=== PATIENT | female | born 1950 | race Caucasian/White ===

== ENCOUNTER 2020-06-02 10:34 | Outpatient (CLI) | payer MEDICARE, SELFPAY ==
[2020-06-02 10:53] LABS: Eosinophils Absolute Auto 0.2 K/mm3 (0-0.3); Eosinophils Percent Auto 3.4 % (0-4.4); Hematocrit 42.8 % (37.0-47.0); Immature Granulocyte Absolute 0.02 K/mm3 (0.00-0.031); Immature Granulocyte Percent A 0.3 % (0-0.5); Lymphocytes Percent Auto 25.8 % (18.3-44.2); Mean Corpuscular HGB Conc 32.7 g/dl (32-36); Mean Corpuscular Hemoglobin 29.9 pg (26-34); Mean Corpuscular Volume 91.3 fl (80-100); Mean Platelet Volume 10.5 fl (7.4-10.4); Monocytes Absolute Auto 0.5 K/mm3 (0.1-0.6); Monocytes Percent Auto 8.2 % (2.6-8.5); Neutrophils Absolute Auto 3.9 K/mm3 (1.3-6.7); Neutrophils Percent Auto 62.3 % (45.5-73.1); Platelet Count Result 199 k/mm3 (150-375); Red Blood Count 4.69 M/mm3 (4.2-5.4); Red Cell Distribution Width 13.4 % (11.5-14.5); White Blood Count 6.2 K/mm3 (4.5-10.0)
[2020-06-02 11:03] LABS: Alanine Aminotransferase 18 U/L (4-35); Albumin Level 3.9 g/dL (3.5-5.1); Alkaline Phosphatase 74 U/L (38-126); Anion Gap 4 mmol/L (8-16); Aspartate Amino Transferase 25 U/L (14-36); Bilirubin,Total 0.4 mg/dL (0.2-1.3); Blood Urea Nitrogen 21 mg/dL (7-17); Calcium 9.7 mg/dL (8.4-10.2); Carbon Dioxide 32 mmol/L (22-30); Chloride 104 mmol/L (98-107); Estimated Glomerular Filt Rate > 60; Glucose 115 mg/dL (65-105); Potassium 4.7 mmol/L (3.4-5.0); Sodium 140 mmol/L (137-145)
== END 2020-06-02 10:35 | disposition home or self-care (01) ==
LOC: ANHLAB 10:34
PROVIDERS: PCP Internal Medicine; Visit Provider Nurse Practitioner
DX: Z13.228 Encounter for screening for other metabolic disorders (principal); E55.9 Vitamin D deficiency, unspecified
CPT/HCPCS: 36415; 80053; 82306; 85025

== ENCOUNTER 2020-10-05 17:40 | Emergency (ER) | payer MEDICARE, SELFPAY ==
--- NOTE | ~2020-10-05 | XR_ITS ---
EXAMINATION: XR foot LT min 3V EXAM DATE: 10/05/2020 18:31 INDICATION: fall, pain and edema; pain lat Lt foot . Initial encounter. TECHNIQUE: Left foot dorsoplantar, lateral and oblique projections obtained and reviewed. There is n o prior study for comparison. FINDINGS: Left metatarsal bones unremarkable. Small calcaneal inferior spur. There are no acute fr actures or dislocations identified. There is no subcutaneous gas. The soft tissue is unremarkable. There are no radiopaque foreign bodies. There is mild 1st metatarsophalangeal joint primary osteoa rthritis. IMPRESSION: 1. XR foot LT min 3V exam without acute osseous findings. Reviewed, dictated and finalized at location A.
[2020-10-05 18:13] VITALS: BP 146/83; PULSE 99; RESP 18; TEMP 36.9; O2SAT 99
--- NOTE | 2020-10-05 18:52 | ED.GENADULT ---
HPI - General Adult General Chief complaint: Extremity Injury, Lower Stated complaint: left foot injury, fall Time Seen by Provider: 10/05/20 18:16 Source: patient History of Present Illness HPI narrative: Patient is a 70 y/o female complaining of left foot pain after a fall 3 days ago. She states that she was walking onto a porch and fell. She denies hitting her head or passing out. She describes her pain as sharp and rates it as 7/10. Weight bearing aggravates her pain and Tylenol helps. She is able to ambulate, although with some difficulty. Related Data Home Medications Medication Instructions Recorded Confirmed cetirizine 10 mg tablet 5 mg PO DAILY PRN 05/14/19 06/05/20 multivitamin 1 tablet PO DAILY 05/14/19 06/05/20 tramadol 50 mg tablet 50 - 100 mg PO Q6H PRN tablet 05/14/19 06/05/20 cholecalciferol (vitamin D3) 125 10,000 unit PO DAILY tablet 06/05/20 06/05/20 mcg (5,000 unit) tablet Allergies Allergy/AdvReac Type Severity Reaction Status Date / Time Penicillins Allergy Unknown red knot Verified 10/05/20 18:16 Review of Systems Constitutional: Constitutional: Denies chills, Denies fever(s), Denies headache(s) and Denies weakness Eyes: Eyes: Denies blurry vision ENT: Denies headache(s) and Denies neck pain Cardiovascular: Cardiovascular: Denies chest pain and Denies dyspnea Respiratory: Respiratory: Denies cough and Denies dyspnea Gastrointestinal: Gastrointestinal: Denies abdominal pain, Denies diarrhea, Denies nausea and Denies vomiting Genitourinary: Genitourinary: Denies hematuria and Denies dysuria Musculoskeletal: Musculoskeletal: Denies back pain, Denies neck pain and Reports other (left foot pain) Neurologic: Denies headache(s) and Denies weakness [facility] Past Medical History Medical History Anxiety Fibromyalgia Right leg DVT Seasonal allergies Torn rotator cuff Right Vertigo Surgical History Surgical History History of back surgery Cement put in back. 2018 History of cataract surgery History of partial hysterectomy History of tubal ligation Family History Family History Mother Family history of Alzheimer's disease Family history of malignant neoplasm of ovary Father Patient's father is Epilepsy Meningitis Other Family history of arthritis Family history of malignant neoplasm Social History Social History Smoking status: Former smoker Alcohol intake: current Exam Const: General: no acute distress and well developed Orientation/consciousness: oriented to person, oriented to place, oriented to time and patient oriented x3 HENMT: Head: normocephalic Ears: external ears normal General nose exam: Normal external nose present Eyes: General: appearance normal, both eyes and all related structures Conjunctivae: conjunctivae normal Neck: Neck: normal visual inspection and full ROM Chest: Chest palpation & inspection: normal inspection of the chest and no tenderness Skin: General skin exam: normal color and turgor normal Neuro: General: oriented to person, oriented to place, oriented to time and patient oriented x3 Cognition (Neuro): normal cognition Extrem: General: normal to inspection, full ROM and no pedal edema Left lower extremity: foot Details: tenderness Psych: Appearance: grossly normal Mental Status: mental status grossly normal Affect: normal affect Course Vital Signs Vital signs: Vital Signs Temperature 36.9 C 10/05/20 18:13 Pulse Rate 99 10/05/20 18:13 Respiratory Rate 18 10/05/20 18:13 Blood Pressure 146/83 H 10/05/20 18:13 Pulse Oximetry 99 10/05/20 18:13 Temperature 36.9 C 10/05/20 18:13 Pulse Rate 99 10/05/20 18:13 Respiratory Rate 18 10/05/20 18:13 Blood Pressu
[2020-10-05 19:55] VITALS: BP 138/79; PULSE 78; RESP 16; O2SAT 97
== END 2020-10-05 19:55 | disposition home or self-care (01) ==
PROVIDERS: Emergency Provider Emergency Medicine; PCP Internal Medicine
DX: S90.32XA Contusion of left foot, initial encounter (principal); F41.9 Anxiety disorder, unspecified; M79.7 Fibromyalgia; Z86.718 Personal history of other venous thrombosis and embolism; Z98.49 Cataract extraction status, unspecified eye; Z87.891 Personal history of nicotine dependence; W18.30XA Fall on same level, unspecified, initial encounter
CPT/HCPCS: 73630; 99283

== ENCOUNTER → 2021-07-17 00:08 | Outpatient (CLI) | payer MEDICARE, SELFPAY ==
[2021-07-17 16:46] LABS: SARS-CoV-2 RNA PCR Negative
== END ==
PROVIDERS: PCP Internal Medicine; Visit Provider Nurse Practitioner
DX: R05.9 Cough, unspecified (principal); Z20.822 Contact with and (suspected) exposure to COVID-19
CPT/HCPCS: C9803; U0003; U0005

== ENCOUNTER 2021-07-27 09:38 | Outpatient (CLI) | payer MEDICARE, SELFPAY ==
--- NOTE | ~2021-07-27 | XR_ITS ---
XR chest 2V 07/27/2021 09:57 Indication: Cough Procedure: 2 view chest Comparison: 03/01/2017 Findings: Large hiatal hernia. Heart size normal. No focal air space disease, pulmonary edema, pleura l effusion or suspected pneumothorax. There are vertebroplasty changes in the lower thoracic spine. N o acute osseous abnormality. Impression: 1: Large hiatal hernia. Reviewed, dictated and finalized at location A. XER Impression: 1: Large hiatal hernia.
== END 2021-07-27 09:39 ==
LOC: MICIMG 09:40
PROVIDERS: PCP Internal Medicine; Visit Provider Clinical Nurse Specialist
DX: R05.9 Cough, unspecified (principal); K44.9 Diaphragmatic hernia without obstruction or gangrene
CPT/HCPCS: 71046

== ENCOUNTER 2021-09-02 08:34 | Outpatient (CLI) | payer MEDICARE, SELFPAY ==
--- NOTE | ~2021-09-02 | CT_ITS ---
EXAMINATION: CT chest abdomen w con DATE: 09/02/2021 09:32 INDICATION: Diaphragmatic hernia without obstruction or gangrene TECHNIQUE: Computed tomography (CT) of the chest and abdomen was performed with 100 mL Omnipaque-350 intravenous contrast. Automated exposure control and iterative reconstruction technique were employed . The dose-length product was 675.88 mGy-cm. COMPARISON: Chest CT dated 03/06/2017 FINDINGS: Chest : Large sliding-type hiatal hernia which contains the entire stomach with organoaxial volvulus. There i s prominent edematous wall thickening in the distal esophagus likely related to reflux esophagitis. T here is prominent compressive atelectasis in the adjacent left and right lower lobes. Additional mild dependent atelectasis in the bilateral lower lobes. No pneumonia, pulmonary edema or pleural effusio n. Heart size is normal. No pericardial effusion. Thoracic aorta is normal in caliber with no dissect ion. No pathologically enlarged thoracic lymphadenopathy. Chronic T12 compression fracture with verte broplasty. Abdomen : Liver, gallbladder, spleen, pancreas and left adrenal gland are normal. No significant interval lambert e in a 2.2 cm right adrenal adenoma with characteristic low attenuation on the prior noncontrast CT. Kidneys enhance symmetrically. A couple nonenhancing left renal cysts the larger measuring 1.8 cm. Vi sualized portions of the bowels are normal with no obstruction. Abdominal aorta is normal in caliber. No pathologically enlarged abdominal lymphadenopathy. Mild lumbar spondylosis. 3 mm retrolisthesis L 5 with respect to both L4 and S1. IMPRESSION: 1. Large sliding-type hiatal hernia containing the entire stomach with organoaxial volvulus. 2. Wall thickening in the distal esophagus likely esophagitis related to reflux. Reviewed, dictated and finalized at location B. IMPRESSION: 1. Large sliding-type hiatal hernia containing the entire stomach with organoax ial volvulus. 2. Wall thickening in the distal esophagus likely esophagitis related to reflux .
[2021-09-02 09:17] LABS: Estimated Glomerular Filt Rate > 60
== END 2021-09-02 08:35 ==
PROVIDERS: PCP Internal Medicine; Visit Provider Surgery
DX: K44.9 Diaphragmatic hernia without obstruction or gangrene (principal); K21.9 Gastro-esophageal reflux disease without esophagitis
CPT/HCPCS: 71260; 74160; Q9967

== ENCOUNTER 2021-09-28 13:50 | Outpatient (CLI) | payer MEDICARE, SELFPAY ==
--- NOTE | ~2021-09-28 | XR_ITS ---
EXAMINATION: XR chest 2V DATE: 09/28/2021 15:01 INDICATION: Diaphragmatic hernia without obstruction TECHNIQUE: PA and lateral views of the chest are obtained. COMPARISON: 09/02/2021 FINDINGS: The lungs are free of acute opacities. There is no pleural effusion or pneumothorax. The he art size is normal. There is a large hiatal hernia. There is moderate thoracic spondylosis. Vertebrop lasty change is noted at T12. IMPRESSION: 1. Large hiatal hernia. Reviewed, dictated and finalized at location A. IMPRESSION: 1. Large hiatal hernia.
--- NOTE | 2021-09-28 14:33 | ECG_ITS ---
Measurements Intervals [place] Rate: 63 P: 69 AK: 169 QRS: 50 QRSD: 78 T: 30 QT: 389 QTc: 398 Interpretive Statements SINUS RHYTHM LOW QRS VOLTAGE IN PRECORDIAL LEADS BASELINE ARTIFACT- V4 BORDERLINE ECG Electronically Signed On 09-28-2021 15:33:21 CDT by Edgar Coreas D.O.
[2021-09-28 15:04] LABS: Eosinophils Absolute Auto 0.1 K/mm3 (0-0.3); Eosinophils Percent Auto 2.2 % (0-4.4); Hematocrit 41.2 % (37.0-47.0); Hemoglobin 13.8 g/dL (12.0-15.0); Immature Granulocyte Absolute 0.01 K/mm3 (0.00-0.031); Immature Granulocyte Percent A 0.2 % (0-0.5); Lymphocytes Absolute Auto 1.97 K/mm3 (0.9-3.2); Lymphocytes Percent Auto 47.6 % (18.3-44.2); Mean Corpuscular HGB Conc 33.5 g/dl (32-36); Mean Corpuscular Hemoglobin 30.7 pg (26-34); Mean Corpuscular Volume 91.6 fl (80-100); Mean Platelet Volume 10.8 fl (7.4-10.4); Monocytes Absolute Auto 0.4 K/mm3 (0.1-0.6); Monocytes Percent Auto 10.1 % (2.6-8.5); Neutrophils Absolute Auto 1.7 K/mm3 (1.3-6.7); Neutrophils Percent Auto 39.9 % (45.5-73.1); Platelet Count Result 209 k/mm3 (150-375); White Blood Count 4.1 K/mm3 (4.5-10.0)
[2021-09-28 15:14] LABS: Anion Gap 6 mmol/L (8-16); Blood Urea Nitrogen 17 mg/dL (7-17); Calcium 9.2 mg/dL (8.4-10.2); Carbon Dioxide 30 mmol/L (22-30); Chloride 103 mmol/L (98-107); Estimated Glomerular Filt Rate > 60; Glucose 96 mg/dL (65-110); Potassium 4.1 mmol/L (3.4-5.0); Sodium 139 mmol/L (137-145)
== END 2021-09-28 13:51 | disposition home or self-care (01) ==
LOC: ANHSURGERY 13:55
PROVIDERS: PCP Internal Medicine; Visit Provider Surgery
DX: K44.9 Diaphragmatic hernia without obstruction or gangrene (principal); R94.31 Abnormal electrocardiogram [ECG] [EKG]
CPT/HCPCS: 36415; 71046; 80048; 85025; 86850; 86900; 86901; 93005

== ENCOUNTER 2021-10-08 18:20 | Inpatient (IN) | payer MEDICARE, SELFPAY ==
[2021-09-28 14:06] VITALS: BP 123/80; PULSE 67; RESP 12; TEMP 36.9; O2SAT 95; BMI 27.6
--- NOTE | 2021-09-28 14:15 | PC.NURSE ---
Report to the Outpatient Waiting Room, entrance under the green pavilion located off [facility], at time __10:00AM on date __10/07/21 . OR Time: __12:00PM . - You and your visitor will be asked a series of questions to screen for COVID 19 for your protection. - Only one visitor is allowed at this time. - The patient visitor is requested to leave or wait in car when not with patient. - A mask is required within the hospital. Patients may have clear liquids (water, carbonated beverages, clear teas, apple juice) until 3 hours prior to surgery with a maximum of 20 ounces. - No food from midnight until time of surgery - Infants may have breast milk until 4 hours before surgery, formula 6 hours prior to surgery. - Children will be allowed to drink immediately following surgery. If applicable, please bring a bottle or sippy cup to assist with drinking. Juice, water, soda, and popsicles are readily available. For infants on formula, please bring formula the day of surgery. Pacifiers are allowed. Take the following medications with a SIP of water the morning of surgery: ____DULOXETINE Medications to discontinue per physician HOLD ALL VITAMINS/SUPPLEMENTS 3 DAYS PRE-OP Date to take last dose____10/03/21 Please no make-up, nail australian, hairspray, perfume, deodorant, or body powder the day of surgery. No jewelry (including any body piercings) or valuables the day of surgery, leave them at home. Please take a shower or bath the night before, or the morning of, surgery with an antibacterial soap. Wear comfortable, loose fitting clothing. Children are encouraged to wear pajamas. - Jewelry must be removed prior to entering the operating room. Rings and piercings that are not removed may be cut off. - The hospital will not accept responsibility for valuables. - Please leave all valuables, including medications, at home the day of surgery. If you are going home after surgery, a licensed tram driver must drive you home. - NO public transportation without another adult. - We recommend that an adult stay with you for 24 hours following discharge. - We also recommend that you do not drive, make important decision, drink alcoholic beverages, or take any drugs that were not prescribed by your health care provider for at least 24 hours after your discharge time. For Pediatric surgeries, we recommend two adults accompany the child home (only one inside the building at this time). Follow any additional instructions given to you from your surgeon. If you or anyone in your household have experienced Covid symptoms in the past week, please notify your surgeon or the nurse liaison at the phone number below for possible testing. Telephone instructions given to ___PATIENT and asked if any additional questions and then verbalized understanding. Patient advised to call surgeon office or pre surgery nurse liaison [phone] if any additional questions.
--- NOTE | 2021-10-05 15:16 | PM.IMHP ---
H&P: HPI History of Present Illness Date/Time: 10/05/21 15:16 Chief Complaint: Hiatal hernia Narrative: patient is a 71-year-old woman with a longstanding large hiatal hernia. Her entire stomach is within the mediastinum. She had a CT scan of the abdomen and chest September 02, 2021. This showed a large sliding type hiatal hernia containing the entire stomach with organoaxial volvulus. There was some esophageal thickening felt to be esophagitis due to reflux. Patient has significant obstructive symptoms very frequently after eating. She also experiences heartburn not responsive to oral medication. After thorough discussion in the office, she is taken to surgery now for laparoscopic repair of her large hiatal hernia. Review of Systems Constitutional: Constitutional: Denies chills and Denies fever(s) Cardiovascular: Cardiovascular: Denies chest pain, Denies diaphoresis, Denies dyspnea and Denies paroxysmal nocturnal dyspnea Respiratory: Respiratory: Denies chest congestion, Denies cough and Denies dyspnea Integumentary/Breasts: Skin/Breast: Denies lesions and Denies rash PMFSH Past Medical History Medical History Anxiety Fibromyalgia Hiatal hernia History of DVT (deep vein thrombosis) Right leg DVT Seasonal allergies Torn rotator cuff Right Vertigo Surgical History Surgical History History of back surgery Cement put in back. 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 Substance use: never Additional living arrangements comments: [facility]USB Spiritual care concerns: No Meds Home Medications and Allergies Home Medications Medication Instructions Recorded Confirmed Type cetirizine 10 mg tablet 5 mg PO QAM 05/14/19 09/28/21 History multivitamin 1 tablet PO DAILY 05/14/19 09/28/21 History ascorbic acid (vitamin C) 500 mg PO QAM 09/28/21 09/28/21 History cholecalciferol (vitamin D3) 125 mcg PO QAM 09/28/21 09/28/21 History duloxetine [Cymbalta] 60 mg PO QAM 09/28/21 09/28/21 History naproxen sodium [Aleve] 220 mg PO BID PRN 09/28/21 09/28/21 History Allergies Allergy/AdvReac Type Severity Reaction Status Date / Time Penicillins Allergy Unknown red knot Verified 09/28/21 14:01 at injection site Exam Const: General: comfortable, no acute distress, alert and awake HENMT: Head: normocephalic and atraumatic Mouth: Yes Normal oral and palatal mucosa present Eyes: Conjunctivae: conjunctivae normal Pupils: Equal, round and reactive pupils present EOM: EOMs intact bilaterally Neck: Neck: normal visual inspection, no lymphadenopathy and nontender Resp: Effort & Inspection: normal respiratory effort Auscultation: clear to auscultation bilaterally Cardio: Rate: regular rate Rhythm: regular rhythm Heart sounds: no gallops, no murmurs and no rubs GI: Inspection: non-distended GI Palp: Yes Soft to palpation, No Tenderness to palpation present (GI), No Hepatomegaly present and No Splenomegaly present Skin: Lesions: no lesions Rashes: no rashes Neuro: General: no focal motor deficits and CN's II-XI intact bilaterally Cranial nerves: Yes Equal, round and reactive pupils present, Yes B
[2021-10-07] VITALS (17 sets, daily range): BP systolic 98–124; BP diastolic 59–88; PULSE 68–94; RESP 10–18; TEMP 34.3–36.6; O2SAT 92–100
[2021-10-07] MEDS: LACTATED RINGERS 1,000 ML 30 ML IV CONT ×3 (10:00→17:01)
--- NOTE | 2021-10-07 10:33 | WPDANESEPPF ---
Anes - Initial Pre Proc Eval Procedure: Operation Date: 10/07/21 12:00 Proposed Procedures p Laparoscopic Repair Paraesophageal Hiatal Hernia with Rajeev Fundoplication - Maynor Ayala MD Date/Time: 10/07/21 10:33 Surgeon: Maynor Ayala MD Pre Op Diagnosis: GERD Patient Data Age: 71 Gender: F Height: 1.6 m Weight: 68.4 kg Last Vital Signs Temp 36.2 C L 10/07/21 09:57 Pulse 68 10/07/21 09:57 Resp 18 10/07/21 09:57 BP 120/88 10/07/21 09:57 Pulse Ox 97 10/07/21 09:57 Allergies Allergy/AdvReac Type Severity Reaction Status Date / Time Penicillins Allergy Unknown red knot Verified 10/07/21 09:49 at injection site Home Medications Medication Instructions Recorded Confirmed Type cetirizine 10 mg tablet 5 mg PO QAM 05/14/19 10/07/21 History multivitamin 1 tablet PO DAILY 05/14/19 10/07/21 History ascorbic acid (vitamin C) 500 mg PO QAM 09/28/21 10/07/21 History cholecalciferol (vitamin D3) 125 mcg PO QAM 09/28/21 10/07/21 History naproxen sodium [Aleve] 220 mg PO BID PRN 09/28/21 10/07/21 History duloxetine 60 mg capsule,delayed 60 mg PO QAM #90 cap 10/06/21 10/07/21 Rx release Patient hx anesthesia problems: none Family hx anesthesia problems: none Results Review: All pre-operative results and documents have been reviewed as part of the pre-operative evaluation. [facility] Past Medical History Medical History Anxiety Fibromyalgia Hiatal hernia History of DVT (deep vein thrombosis) Right leg DVT Seasonal allergies Torn rotator cuff Right Vertigo Surgical History Surgical History History of back surgery Cement put in back. 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 Substance use: never Living arrangements: with family Additional living arrangements comments: HUSB Spiritual care concerns: No Anes - Eval Final PreProcedure Day of Procedure 10/07/21 10:33 Patient weight: overweight Heart: regular rate and rhythm Lungs: clear to auscultation Airway: Mallampati scale class II Neurological: alert and oriented Last oral intake: >/= 8 hours ASA classification: III Emergent: no Anesthetic plan: proceed Anesthesia type and monitoring: general ETT and standard monitoring Results Review: All pre-operative results and documents have been reviewed as part of the pre-operative evaluation. Informed Consent: The patient's anesthetic plan and its attendant risks and benefits were discussed with the patient/family/POA. Questions were solicited and answers provided to the satisfaction of the patient/family/POA.
--- NOTE | 2021-10-07 11:52 | WPDHPUPDATE1 ---
History and Physical Update Update Date/Time: 10/07/21 11:52 History and Physical has been reviewed, including an updated exam of the patient. There are NO changes in the patient's condition. Risks, benefits, and alternatives have been discussed and questions answered. Patient agrees to proceed with procedure.
[2021-10-07] MEDS: ceFAZolin 2 GM/D5W 50 ML 2 GM/50 ML BAG IVPB (12:12)
[2021-10-07] MEDS: LIDO 1%/EPINEPHRINE 1:100,000 50 ML VIAL 30 ML INFILTRATE (13:46)
[2021-10-07] MEDS: ceFAZolin SODIUM 1 GM VIAL IV PUSH (16:05)
--- NOTE | 2021-10-07 16:20 | W.PM.PROC2 ---
Procedure Note - Detailed Date of Procedure 10/07/21 Pre-op Diagnosis Paraesophageal hiatal hernia with intrathoracic stomach, gastroesophageal reflux disease Post-op Diagnosis Same Procedure Performed Laparoscopic repair paraesophageal hiatal hernia with Rajeev fundoplication Surgeon Maynor Ayala MD Barbed Wire Machine Operator Sobia MEMBRENO, Alecia MEMBRENO Anesthesia General and Local (1% lidocaine with epinephrine) Indications Patient has a very large paraesophageal hiatal hernia as well as heartburn. She has obstructive symptoms from this. After preoperative evaluation and discussion, she is taken to surgery for laparoscopic repair with Rajeev fundoplication Findings Large diaphragmatic hiatal defect, intrathoracic stomach, intraoperative bleeding from short gastric vessel bleeding which he was eventually isolated and clipped. Intraoperative blood loss was 600 cc which is at least 500 cc more than usual. Description of Procedure Patient was taken to surgery and induced into general anesthesia. The abdomen was prepped and draped. The initial trocar placement was in the midline above the umbilicus. Local was infiltrated in this location. The varies needle was introduced into the abdominal cavity. Insufflation was carried out. After adequate insufflation, an [employer] optical 10 11 port was placed under direct visualization. Once this port and camera were in position, the Alhaji retractor was placed in the right upper abdomen. The industrial production manager was present in the room and provided technical advice as to placement of the Alhaji. Local was infiltrated and a small incision was made. An Dennis and retractor was passed through the skin opening and into the abdominal cavity under direct visualization. It was positioned such that the lateral segment of the left lobe of the liver was elevated. It was then attached to the side arm and provided elevation of the lateral segment of the left lobe of the liver as well as visualization of the hiatal hernia. We then placed a right upper abdominal 10 11 port as well as a left upper abdominal 10 11 port. Finally a 10 11 port was placed in the left lateral subcostal position. Patient was placed in Trendelenburg. We started by eviscerating as much of the stomach as was gently come out of the mediastinum into the stomach. The stomach was then held in place and we turned our attention to the hepatogastric ligament. Using the LigaSure for virtually all the dissection, we started by dividing the a paddle gastric ligament and then proceeding up to the right wolf. The right wolf was exposed. I then divided the hernia sac just inside the right wolf and started gently teasing the hernia sac out of the right side of the mediastinum and down towards the hiatus. Fortunately there was a lot of alveolar tissue and the sac came down fairly easily. It was quite a large hernia sac. We continued this dissection and divided more of the hernia sac from the right wolf and the upper junction of the 2 crura. The hernia sac was very large and was gently brought down out of the mediastinum. Eventually we were able to the see the esophagus in the mediastinum and care was taken to avoid injury to this. Once most of the hernia sac had been dissected down to the hiatus I then went about dividing areola tissue around the esophagus to mobilize the esophagus. Once all of this that could be done from the right side of the hiatus had been performed, we then elevated the greater curvature of the stomach and put traction on the greater omentum in this area. The LigaSure was then used to divide the greater omentum near the edge of the greater curvature in enter the lesser sac. I then proceeded with dissecting the greater omentum from the greater curvature proceeding up to the short gastrics and eventually freeing the omentum from the entire cardia of the stomach. All this dissection was done with the LigaSure. We then exposed the posterio
[2021-10-07] MEDS: fentaNYL CITRATE INJ (*CRX) 100 MCG/2 ML VIAL 25 MCG IV PUSH ×2 (17:09→17:15)
--- NOTE | 2021-10-07 18:28 | ADMGEN ---
This patient, Jayde Boateng, was admitted to Medical Room 254-01. Patient/family oriented to hospital policies and general routines including ID bracelet, bed and alarms, visiting hours, pain management, procedures, bathroom and other care routines, personal items, smoking policy, room service/diet, and visiting hours. Information on how to activate the Rapid Response Team has been discussed. Patient/Family are encouraged to report perceived risks to care and to ask questions if they do not understand what they are told or what they should do.
[2021-10-07 18:45] LABS: Glucose Point of Care 226 mg/dl (65-105)
[2021-10-07 19:32] LABS: Hemoglobin 10.5 g/dL (12.0-15.0); Mean Corpuscular HGB Conc 30.9 g/dl (32-36); Mean Corpuscular Hemoglobin 30.1 pg (26-34); Mean Corpuscular Volume 97.4 fl (80-100); Mean Platelet Volume 10.7 fl (7.4-10.4); Platelet Count Result 160 k/mm3 (150-375); Red Blood Count 3.49 M/mm3 (4.2-5.4); Red Cell Distribution Width 14.4 % (11.5-14.5); White Blood Count 11.4 K/mm3 (4.5-10.0)
[2021-10-07 19:43] LABS: Anion Gap 8 mmol/L (8-16); Blood Urea Nitrogen 17 mg/dL (7-17); Calcium 7.4 mg/dL (8.4-10.2); Carbon Dioxide 20 mmol/L (22-30); Chloride 108 mmol/L (98-107); Estimated CRCL calculation 57 ml/min; Estimated Glomerular Filt Rate > 60; Glucose 225 mg/dL (65-110); Potassium 3.8 mmol/L (3.4-5.0); Sodium 136 mmol/L (137-145)
[2021-10-07] MEDS: LACTATED RINGERS 1,000 ML 100 ML IV CONT (20:03)
--- NOTE | 2021-10-07 20:08 | PC.NURSE ---
On 10/07/21, the RN, Isabel Serna, provided care and completed [facility] documentation on this patient. I have reviewed the RN's documentation from 7am- 7pm and agree with the findings.
[2021-10-08] VITALS (9 sets, daily range): BP systolic 103–116; BP diastolic 59–69; PULSE 73–88; RESP 16–20; TEMP 36.3–37.1; O2SAT 92–96
[2021-10-08 05:31] LABS: Hematocrit 30.5 % (37.0-47.0); Hemoglobin 9.4 g/dL (12.0-15.0); Mean Corpuscular HGB Conc 30.8 g/dl (32-36); Mean Corpuscular Hemoglobin 29.7 pg (26-34); Mean Corpuscular Volume 96.5 fl (80-100); Mean Platelet Volume 10.7 fl (7.4-10.4); Platelet Count Result 152 k/mm3 (150-375); Red Blood Count 3.16 M/mm3 (4.2-5.4); Red Cell Distribution Width 14.2 % (11.5-14.5); White Blood Count 8.2 K/mm3 (4.5-10.0)
[2021-10-08] MEDS: ACETAMINOPHEN 500 MG TABLET PO (05:39)
[2021-10-08 05:54] LABS: Anion Gap 4 mmol/L (8-16); Blood Urea Nitrogen 15 mg/dL (7-17); Calcium 7.5 mg/dL (8.4-10.2); Carbon Dioxide 27 mmol/L (22-30); Chloride 106 mmol/L (98-107); Estimated CRCL calculation 51 ml/min; Estimated Glomerular Filt Rate > 60; Glucose 127 mg/dL (65-110); Potassium 4.7 mmol/L (3.4-5.0); Sodium 137 mmol/L (137-145)
[2021-10-08] MEDS: LORATADINE 5 MG TABLET PO (08:01)
[2021-10-08] MEDS: ENOXAPARIN 40 MG/0.4 ML SYRINGE SUB-Q (08:01)
[2021-10-08] MEDS: DULoxetine HCL 60 MG CAPSULE.DR PO (08:01)
--- NOTE | 2021-10-08 09:27 | WPDANESPN ---
Anes - Prog Note Post-Op Date/Time: 10/08/21 09:27 Cardiovascular status: normal Respiratory status: normal Airway patency: baseline Mental status: baseline Post-Op hydration status: normal Vital Signs: Last Vital Signs Temp 37.1 C 10/08/21 06:00 Pulse 80 10/08/21 06:00 Resp 16 10/08/21 06:00 BP 110/65 10/08/21 06:00 Pulse Ox 93 10/08/21 08:48 Pain Score (VAS): 0 I/O: Intake & Output 10/07/21 10/08/21 10/08/21 23:59 07:59 15:59 Intake Total 4800 500 510 Output Total 130 1150 Balance 4670 -650 510 Laboratory Tests 10/08/21 05:10 10/08/21 05:10 10/07/21 10/07/21 10/07/21 18:37 19:22 19:22 WBC 11.4 H RBC 3.49 L Hgb 10.5 L D Hct 34.0 L MCV 97.4 MCH 30.1 MCHC 30.9 L RDW 14.4 Plt Count 160 MPV 10.7 H Sodium 136 L Potassium 3.8 Chloride 108 H Carbon Dioxide 20 L Anion Gap 8 BUN 17 Creatinine 0.70 Estim Creat Clear Calc 57 Estimated GFR > 60 Glucose 225 H POC Capillary Glucose 226 H Calcium 7.4 L 10/08/21 10/08/21 05:10 05:10 WBC 8.2 RBC 3.16 L Hgb 9.4 L Hct 30.5 L MCV 96.5 MCH 29.7 MCHC 30.8 L RDW 14.2 Plt Count 152 MPV 10.7 H Sodium 137 Potassium 4.7 Chloride 106 Carbon Dioxide 27 Anion Gap 4 L BUN 15 Creatinine 0.80 Estim Creat Clear Calc 51 Estimated GFR > 60 Glucose 127 H POC Capillary Glucose Calcium 7.5 L Post-procedural complaints: none Patient Feedback: Patient satisfied with anesthetic care.
--- NOTE | 2021-10-08 12:07 | PM.PNGS ---
Progress Note: A&P Assessment and Plan (1) Paraesophageal hiatal hernia: Code(s): K44.9 - Diaphragmatic hernia without obstruction or gangrene Status: Chronic Assessment and Plan: patient doing well postop day 1. Repair paraesophageal hiatal hernia with Rajeev fundoplication. Tolerating clear liquids well. Will discontinue Brandon catheter and advanced to full liquids. Up walking with assistance. Recheck labs and exam again tomorrow. Reminded patient that dysphagia is common and will probably be worse tomorrow. (2) Acute blood loss anemia: Code(s): D62 - Acute posthemorrhagic anemia Status: Acute Assessment and Plan: Explained to patient and her about the larger than usual blood losses during surgery and the reason for that. Monitoring H&H postoperatively. No need for transfusion at this point. (3) GERD (gastroesophageal reflux disease): Qualifiers: Esophagitis presence: with esophagitis Esophagitis bleeding: without hemorrhage Qualified Code(s): K21.00 - Gastro-esophageal reflux disease with esophagitis, without bleeding Code(s): K21.9 - Gastro-esophageal reflux disease without esophagitis Status: Chronic Assessment and Plan: Was not on medication (4) History of DVT (deep vein thrombosis): Code(s): Z86.718 - Personal history of other venous thrombosis and embolism Status: Chronic Assessment and Plan: on chemoprophylaxis Subjective Subjective Date/Time Seen: 10/08/21 12:07 Post Op day: 1 Patient reports: no new complaints, pain is less, no flatus, no bowel movement and afebrile Exam Const: General: comfortable and no acute distress; No confusion Orientation/consciousness: patient oriented x3 and No confusion Resp: Effort & Inspection: normal respiratory effort Auscultation: clear to auscultation bilaterally GI: Inspection: non-distended and incision ( some bruising at each trocar site but dry without drainage and healing wel) GI Palp: Yes Soft to palpation and Yes Tenderness to palpation present (GI) Auscultation: normal bowel sounds Neuro: General: patient oriented x3, no focal motor deficits and No confusion Extrem: General: no calf tenderness and no edema Psych: Affect: normal affect Insight: Good insight present (Psych) Judgement: Good judgement present (Psych) Objective Data Vital Signs Vital Signs: Vital Signs - 24 hr 10/07/21 16:37 10/07/21 16:50 10/07/21 17:05 Temperature 36.2 C L Pulse Rate 94 90 80 Respiratory Rate 14 14 14 Blood Pressure 123/68 121/65 124/65 Pulse Oximetry 100 100 100 10/07/21 17:20 10/07/21 17:35 10/07/21 17:50 Temperature Pulse Rate 78 78 80 Respiratory Rate 10 L 12 12 Blood Pressure 98/59 L 103/59 L 113/62 Pulse Oximetry 99 92 97 10/07/21 18:30 10/07/21 18:35 10/07/21 19:21 Temperature 34.3 C L 35.4 C L 35.8 C L Pulse Rate 80 Respiratory Rate 12 Blood Pressure 124/68 Pulse Oximetry 95 10/07/21 19:30 10/07/21 19:40 10/07/21 19:45 Temperature 35.6 C L 36.2 C L Pulse Rate 80 Respiratory Rate Blood Pressure Pulse Oximetry 95 10/07/21 20:00 10/07/21 20:30 10/07/21 21:17 Temperature 36.3 C L 36.2 C L 36.6 C Pulse Rate 84 Respiratory Rate 18 Blood Pressure 112/72 Pulse Oximetry 97 10/07/21 21:39 10/08/21 00:38 10/08/21 02:00 Temperature 36.4 C 36.4 C Pulse Rate 84 84 Respiratory Rate 18 18 Blood Pressure 104/64 104/64 Pulse Oximetry 93 96 96 10/08/21 06:00 10/08/21 08:48 10/08/21 10:00 Temperature 37.1 C 36.6 C Pulse Rate 80 88 Respiratory Rate 16 16 Blood Pressure 110/65 106/65 Pulse Oximetry 94 93 96 Intake/Output Intake/Output: Intake & Output 10/05/21 10/06/21 10/07/21 10/08/21 23:59 23:59 23:59 23:59 Intake Total 4850 1010 Output Total 130 1150 Balance 4720 -140 Meds/Results Medications: Active Medications Generic Name Dose Route Start Last Admin Trade [employer]
[2021-10-08] MEDS: HYDROcodone/acetaminophen (*CRX) 5-325 MG TABLET 1 TAB PO (15:02)
[2021-10-09] VITALS: BP 124/81; PULSE 81; RESP 18; TEMP 36.2; O2SAT 94
[2021-10-09] MEDS: HYDROcodone/acetaminophen (*CRX) 10-325 MG TABLET 1 TAB PO (00:41)
[2021-10-09 04:00] VITALS: BP 131/71; PULSE 91; RESP 18; TEMP 36.2; O2SAT 93
[2021-10-09 06:49] LABS: Hematocrit 29.5 % (37.0-47.0); Hemoglobin 9.3 g/dL (12.0-15.0); Immature Platelet Fraction Pct 7.5 % (0.9-11.2); Mean Corpuscular HGB Conc 31.5 g/dl (32-36); Mean Corpuscular Hemoglobin 30.2 pg (26-34); Mean Corpuscular Volume 95.8 fl (80-100); Mean Platelet Volume 11.3 fl (7.4-10.4); Platelet Count Result 146 k/mm3 (150-375); Red Blood Count 3.08 M/mm3 (4.2-5.4); Red Cell Distribution Width 14.4 % (11.5-14.5); White Blood Count 6.9 K/mm3 (4.5-10.0)
[2021-10-09 07:03] LABS: Anion Gap 3 mmol/L (8-16); Blood Urea Nitrogen 10 mg/dL (7-17); Calcium 7.6 mg/dL (8.4-10.2); Carbon Dioxide 28 mmol/L (22-30); Chloride 104 mmol/L (98-107); Estimated CRCL calculation 57 ml/min; Estimated Glomerular Filt Rate > 60; Glucose 97 mg/dL (65-110); Potassium 3.9 mmol/L (3.4-5.0); Sodium 135 mmol/L (137-145)
[2021-10-09] MEDS: ENOXAPARIN 40 MG/0.4 ML SYRINGE SUB-Q (09:22)
[2021-10-09] MEDS: DULoxetine HCL 60 MG CAPSULE.DR PO (09:22)
[2021-10-09] MEDS: LORATADINE 5 MG TABLET PO (09:23)
[2021-10-09 09:48] VITALS: BP 113/59; PULSE 59; RESP 12; TEMP 36.6; O2SAT 93
--- NOTE | 2021-10-09 13:04 | PM.DS ---
DS: Admitting Diagnosis Discharge Date 10/09/2021 Admitting Diagnosis Paraesophageal hiatal hernia with intrathoracic stomach GERD with esophagitis Kyphoscoliosis History DVT DS: Discharge Diagnosis Discharge Diagnosis (1) Paraesophageal hiatal hernia: Code(s): K44.9 - Diaphragmatic hernia without obstruction or gangrene Status: Chronic (2) GERD (gastroesophageal reflux disease): Qualifiers: Esophagitis presence: with esophagitis Esophagitis bleeding: without hemorrhage Qualified Code(s): K21.00 - Gastro-esophageal reflux disease with esophagitis, without bleeding Code(s): K21.9 - Gastro-esophageal reflux disease without esophagitis Status: Chronic (3) Acute blood loss anemia: Code(s): D62 - Acute posthemorrhagic anemia Status: Acute (4) History of DVT (deep vein thrombosis): Code(s): Z86.718 - Personal history of other venous thrombosis and embolism Status: Chronic (5) Kyphoscoliosis: Code(s): M41.9 - Scoliosis, unspecified Status: Chronic DS: Summary Hospital Course Hospital Course: Patient was troubled with a very large hiatal hernia with obstructive symptoms and in intrathoracic stomach. She also had symptoms of heartburn. She was prepared for surgery and then taken to the operating room on 10/07/2021. She underwent repair of paraesophageal hiatal hernia with Rajeev fundoplication. It was a fairly long surgery and there was more blood loss than usual. There had been some bleeding from short gastric vessels in the left upper quadrant which were eventually controlled. Patient did not require transfusion and had no significant symptoms from postoperative anemia. She was tolerating a soft diet ambulating independently and comfortable on oral analgesics. She was able to be discharged on postop day 2. 10/09/2021 in good condition. Status at Discharge Functional status at discharge: independent ambulation Overall status at discharge: patient is progressing back to baseline Time Spent with Patient Time attestation: Total time spent providing and/or coordinating discharge services: Time spent: Less than 30 minutes Exam GI: Inspection: non-distended and incision (Dry and all healing well.) GI Palp: Yes Soft to palpation, Yes Tenderness to palpation present (GI) (Appropriate incisional tenderness), No Hernia present and No Palpable mass present Auscultation: normal bowel sounds DS: Data Data Completed and Pending Labs on day of discharge: Labs from last 24 hours 10/09/21 10/09/21 05:54 05:54 WBC 6.9 RBC 3.08 L Hgb 9.3 L Hct 29.5 L MCV 95.8 MCH 30.2 MCHC 31.5 L RDW 14.4 Plt Count 146 L MPV 11.3 H % Immature Plt Fraction 7.5 Sodium 135 L Potassium 3.9 Chloride 104 Carbon Dioxide 28 Anion Gap 3 L BUN 10 D Creatinine 0.70 Estim Creat Clear Calc 57 Estimated GFR > 60 Glucose 97 Calcium 7.6 L Discharge Plan Discharge Attending physician on discharge: Maynor Ayala Discharging Clinician: Maynor Ayala Anticipated Discharge Date/Time: 10/09/21 13:09 Patient Disposition: Home, Self-Care Activity: may shower and as tolerated Diet: low fiber Wound Care Instructions: incision open to air Discharge Instructions: Ambulate 3-4 x per day and as tolerated. No lifting over 15-20lbs. May bathe or shower. Stairs are OK. May drive a car in 3 days. Low-fiber or soft food diet Patient Instructions: Hiatal Hernia (DC), Laparoscopic Hiatal Hernia Repair (DC), Fundoplication in Adults (GEN) Follow-up/Referrals: Maynor Ayala MD [Physician] - 2 Weeks Discharge Medications: New hydrocodone-acetaminophen 5-325 mg tablet 1 - 2 tablet PO Q6H PRN (Reason: pain) Qty: 15 RF: 0 ibuprofen 600 mg tablet 600 mg PO Q6H PRN (Reason: pain) Qty: 14 RF: 0 Continued multivitamin Tablet 1 tablet PO DAILY RF: 0 cetirizine [Zyrtec] 10 mg
[2021-10-09 13:39] VITALS: O2SAT 92
[2021-10-09 14:10] VITALS: BP 124/66; PULSE 101; RESP 14; TEMP 36.4; O2SAT 93
== END 2021-10-09 16:00 | disposition home or self-care (01) | DRG 327 ==
LOC: ANHSURGERY 18:25 → ANH2MED 18:25
PROVIDERS: Surgery; Admitting Provider Surgery; PCP Internal Medicine; Visit Provider Surgery
PROC: 0DV44ZZ Restriction of Esophagogastric Junction, Percutaneous Endoscopic Approach (ICD-10-PCS; CPT 43281; principal; 2021-10-07 12:00)
DX: K44.9 Diaphragmatic hernia without obstruction or gangrene (principal); D62 Acute posthemorrhagic anemia; K91.61 Intraoperative hemorrhage and hematoma of a digestive system organ or structure complicating a digestive system procedure; Y83.8 Other surgical procedures as the cause of abnormal reaction of the patient, or of later complication, without mention of misadventure at the time of the procedure; K21.00 Gastro-esophageal reflux disease with esophagitis, without bleeding; M41.9 Scoliosis, unspecified; M79.7 Fibromyalgia; F41.9 Anxiety disorder, unspecified; Z86.718 Personal history of other venous thrombosis and embolism; Z79.899 Other long term (current) drug therapy; Z88.0 Allergy status to penicillin; Z87.891 Personal history of nicotine dependence
CPT/HCPCS: 36415; 80048; 82948; 85027; 85055; A9270; C1713; J0171; J0690; J1100; J1650; J2370; J2405; J2704; J2710; J3010; J7120

== ENCOUNTER 2021-10-12 14:09 | Outpatient (CLI) | payer MEDICARE, SELFPAY ==
[2021-10-12 14:40] LABS: Hematocrit 33.1 % (37.0-47.0); Hemoglobin 10.7 g/dL (12.0-15.0); Mean Corpuscular HGB Conc 32.3 g/dl (32-36); Mean Corpuscular Hemoglobin 30.7 pg (26-34); Mean Corpuscular Volume 95.1 fl (80-100); Mean Platelet Volume 10.8 fl (7.4-10.4); Platelet Count Result 239 k/mm3 (150-375); Red Blood Count 3.48 M/mm3 (4.2-5.4); Red Cell Distribution Width 14.5 % (11.5-14.5); White Blood Count 5.1 K/mm3 (4.5-10.0)
== END 2021-10-12 14:10 | disposition home or self-care (01) ==
LOC: ANHLAB 14:10
PROVIDERS: PCP Internal Medicine; Visit Provider Surgery
DX: D62 Acute posthemorrhagic anemia (principal)
CPT/HCPCS: 36415; 85027

== ENCOUNTER 2021-10-18 21:13 | Inpatient (IN) | payer MEDICARE, SELFPAY ==
--- NOTE | ~2021-10-18 | CT_ITS ---
EXAMINATION: CT abdomen pelvis wo con DATE: 10/19/2021 08:43 INDICATION: Nausea and vomiting. TECHNIQUE: Computed tomography (CT) of the abdomen and pelvis was performed without intravenous contr ast. Automated exposure control and iterative reconstruction technique were employed. The dose-length product was 443.09 mGy-cm. COMPARISON: CT chest and abdomen 09/02/2021 FINDINGS: The visualized portions of the lung bases demonstrate small pleural effusions, right worse than left. There is mild atelectasis bilaterally. The heart size is normal. No pericardial effusion. There are changes of fundoplication of the stomach. There is food in the distal esophagus. There is f luid around the distal esophagus, conforming to the area of the previously seen hernia sac. The liver , gallbladder, spleen, pancreas, and left adrenal gland are normal. There is a 2.7 cm mass in right a drenal gland measuring low-attenuation, consistent with an adenoma. The kidneys are normal. There are no dilated loops of bowel. The appendix is normal. There are no pathologically enlarged lymph nodes. There is trace pelvic ascites. There is fat stranding in the body wall, likely edema and postsurgica l inflammation. There is a chronic burst fracture of T12 with changes of vertebroplasty. There is mil d lumbar spondylosis. IMPRESSION: 1. Changes of recent fundoplication. Fluid around the distal esophagus conforming to the area of the previously seen hernia sac. 2. Retained food in the esophagus. 3. Small pleural effusions. Reviewed, dictated and finalized at location A. IMPRESSION: 1. Changes of recent fundoplication. Fluid around the distal esophagus conformi ng to the area of the previously seen hernia sac. 2. Retained food in the esophagus. 3. Small pleural effusions.
--- NOTE | ~2021-10-18 | XR_ITS ---
EXAMINATION: XR chest 2V DATE: 10/19/2021 00:46 INDICATION: Vomiting. TECHNIQUE: Frontal and lateral views of the chest were obtained. COMPARISON: Chest 2 views 09/28/2021, chest CT 09/02/2021 FINDINGS: There is mild atelectasis in the lower lung zones. There is a mass in the posterior mediast inum. There is a small right pleural effusion. No pneumothorax. The heart size is normal. There is mi ld chronic anterior wedging of T11 vertebral body. There is a chronic compression fracture of T12 wit h changes of vertebroplasty. IMPRESSION: 1. Mild atelectasis in the lower lung zones. 2. Mass in the posterior mediastinum, likely surgical changes from hiatal hernia repair. Consider an upper gastrointestinal series. Reviewed, dictated and finalized at location A. IMPRESSION: 1. Mild atelectasis in the lower lung zones. 2. Mass in the posterior mediastinum, likely surgical changes from hiatal herni a repair. Consider an upper gastrointestinal series.
--- NOTE | ~2021-10-18 | XR_ITS ---
EXAMINATION: XR UGI w esoph water soluble DATE: 10/19/2021 11:21 CDT INDICATION: Evaluate for esophageal narrowing. Recent surgical procedure of the esophagus. TECHNIQUE: Thick barium contrast with gas effervescent crystals were administered orally. Fluoroscop ic images of the esophagus were obtained in various projections. The hypopharynx was also examined. T hereafter, overhead images of the thoracic esophagrus were performed. Fluroscopy time 0.7 minutes. 17 fluoroscopic images. FINDINGS: There are changes of recent Manny fundoplication procedure. There is persistent narrowing in the distal esophagus near the surgical site. There is obstruction of flow of contrast into the sto mach. There is moderate residual debris in the distal and mid esophagus, consistent with obstruction. IMPRESSION: 1. Abnormal narrowing of the distal esophagus with retained debris and contrast in the mid and dista l esophagus, consistent with obstruction. Reviewed, dictated and finalized at location A. IMPRESSION: 1. Abnormal narrowing of the distal esophagus with retained debris and contras t in the mid and distal esophagus, consistent with obstruction.
[2021-10-18 21:16] VITALS: BP 128/82; PULSE 65; RESP 18; TEMP 36.6; O2SAT 99
[2021-10-18] MEDS: ONDANSETRON INJ 4 MG/2 ML VIAL IV PUSH (22:49)
[2021-10-18] MEDS: LACTATED RINGERS 1,000 ML 999 ML IV CONT (22:49)
--- NOTE | 2021-10-18 22:53 | ED.NAVMDI ---
HPI - Nausea/Vomiting/Diarrhea General Chief complaint: Nausea/Vomiting/Diarrhea Stated complaint: nausea/vomiting Time Seen by Provider: 10/18/21 22:20 Source: patient Mode of arrival: ambulatory Limitations: no limitations History of Present Illness HPI Narrative: Patient is a 71-year-old female complaining of I cannot keep anything down , states that anything she eats or drinks she would throw it up, started today. Patient also states that she has heartburn and every time she eats she feels like there is pressure in the substernal area. Patient states that she had hernia repair surgery 2 weeks ago, was doing well, able to tolerate a normal diet, until today when she cannot keep anything down. Patient denies any pain, shortness of breath, abdominal pain, diaphoresis, fever or chills. Related Data Home Medications Medication Instructions Recorded Confirmed cetirizine 10 mg tablet 5 mg PO QAM 05/14/19 10/07/21 multivitamin 1 tablet PO DAILY 05/14/19 10/07/21 ascorbic acid (vitamin C) 500 mg PO QAM 09/28/21 10/07/21 cholecalciferol (vitamin D3) 125 mcg PO QAM 09/28/21 10/07/21 naproxen sodium [Aleve] 220 mg PO BID PRN 09/28/21 10/07/21 Allergies Allergy/AdvReac Type Severity Reaction Status Date / Time Penicillins Allergy Unknown red knot Verified 10/18/21 21:21 at injection site Review of Systems Review of Systems: All systems reviewed & are unremarkable except as noted in HPI and below Constitutional: Constitutional: Denies body ache(s), Denies chills, Denies excessive sweating, Denies fatigue, Denies fever(s), Denies headache(s), Denies lethargy, Denies malaise, Denies weakness and Denies weight loss Eyes: Eyes: Denies blurry vision, Denies change in vision and Denies loss of vision ENT: Denies dizziness, Denies ear discharge, Denies headache(s), Denies lip swelling, Denies epistaxis, Denies nasal congestion, Denies neck pain, Denies throat swelling and Denies tongue swelling Cardiovascular: Cardiovascular: Denies chest pain, Denies chest pain at rest, Denies chest pain with activity, Denies diaphoresis, Denies rapid heart rate, Denies edema, Denies irregular heart rhythm, Denies lightheadedness, Denies palpitations, Denies dyspnea and Denies dyspnea on exertion Respiratory: Respiratory: Denies chest congestion, Denies cough, Denies hemoptysis, Denies dyspnea and Denies dyspnea on exertion Gastrointestinal: Gastrointestinal: Denies abdominal pain, Denies melena, Denies hematochezia, Denies diarrhea and Denies hematemesis Musculoskeletal: Musculoskeletal: Denies abnormal gait, Denies deformity, Denies joint swelling, Denies limited range of motion, Denies neck pain and Denies numbness Neurologic: Denies Abnormal speech present, Denies abnormal gait, Denies confusion, Denies dizziness, Denies headache(s), Denies focal weakness, Denies loss of vision, Denies numbness, Denies Other visual disturbances, Denies Sensory deficit (Neuro) and Denies weakness Psychiatric: Psychiatric: Denies confusion, Denies depression, Denies auditory hallucinations, Denies homicidal ideation and Denies suicidal ideation Endocrine: Endocrine: Denies cold intolerance, Denies excessive sweating, Denies fatigue, Denies heat intolerance and Denies palpitations Hematologic/Lymphatic: Hematologic/Lymphatic: Denies easy bleeding and Denies easy bruising Allergic/Immunologic: Allergic/Immunologic: Denies lip swelling, Denies throat swelling and Denies tongue swelling PMFSH Past Medical History Medical History Anxiety Fibromyalgia History of DVT (deep vein thrombosis) Right leg DVT Seasonal allergies Torn rotator cuff Right Vertigo Surgical History Surgical History History of back surgery Cement put in back. 2018 History of cataract surgery History of Rajeev fundoplication repair paraesophageal hiatal hernia with intr
[2021-10-18 23:02] LABS: Basophils Percent Auto 0.2 % (0.2-1.2); Eosinophils Absolute Auto 0.1 K/mm3 (0-0.3); Eosinophils Percent Auto 2.7 % (0-4.4); Hemoglobin 10.8 g/dL (12.0-15.0); Immature Granulocyte Absolute 0.01 K/mm3 (0.00-0.031); Immature Granulocyte Percent A 0.2 % (0-0.5); Lymphocytes Absolute Auto 1.73 K/mm3 (0.9-3.2); Mean Corpuscular HGB Conc 31.8 g/dl (32-36); Mean Corpuscular Hemoglobin 30.3 pg (26-34); Mean Corpuscular Volume 95.2 fl (80-100); Mean Platelet Volume 10.3 fl (7.4-10.4); Monocytes Absolute Auto 0.4 K/mm3 (0.1-0.6); Monocytes Percent Auto 9.1 % (2.6-8.5); Neutrophils Absolute Auto 2.5 K/mm3 (1.3-6.7); Neutrophils Percent Auto 51.8 % (45.5-73.1); Platelet Count Result 316 k/mm3 (150-375); Red Blood Count 3.57 M/mm3 (4.2-5.4); Red Cell Distribution Width 14.7 % (11.5-14.5); White Blood Count 4.8 K/mm3 (4.5-10.0)
--- NOTE | 2021-10-18 23:04 | ECG_ITS ---
Measurements Intervals [place] Rate: 57 P: 72 ND: 174 QRS: 41 QRSD: 85 T: 30 QT: 437 QTc: 427 Interpretive Statements SINUS BRADYCARDIA ATRIAL PREMATURE COMPLEX BASELINE ARTIFACT- I, III BORDERLINE ECG Electronically Signed On 10-19-2021 6:40:54 CDT by Edgar Coreas D.O.
[2021-10-18 23:05] LABS: Bacteria Urine Trace /hpf; Mucus Urine Rare /lpf; RBC Urine 0-2 /hpf (0-2); Squamous Epithelial Cell Urine Rare /hpf (Few); WBC Urine 0-3 /hpf
[2021-10-18 23:10] LABS: Appearance Urine Clear (Clear); Bilirubin Urine Negative (Negative); Blood Urine Negative (Negative); Color Urine Yellow (Yellow); Glucose Urine UA Negative (Negative); Ketones Urine Negative (Negative); Leukocyte Esterase Ur Negative LEU/UL (Negative); Nitrate Urine Negative (Negative); Protein Urine Negative (Negative); Specific Grav Ur 1.025 (1.001-1.035)
[2021-10-18 23:12] LABS: Alanine Aminotransferase 14 U/L (6-35); Albumin Level 3.5 g/dL (3.5-5.1); Alkaline Phosphatase 60 U/L (38-126); Anion Gap 3 mmol/L (8-16); Aspartate Amino Transferase 19 U/L (14-36); Bilirubin,Total 0.2 mg/dL (0.2-1.3); Blood Urea Nitrogen 13 mg/dL (7-17); Calcium 8.8 mg/dL (8.4-10.2); Carbon Dioxide 26 mmol/L (22-30); Chloride 106 mmol/L (98-107); Estimated CRCL calculation 57 ml/min; Estimated Glomerular Filt Rate > 60; Glucose 108 mg/dL (65-110); Lipase 52 U/L (23-300); Potassium 4.4 mmol/L (3.4-5.0); Sodium 135 mmol/L (137-145)
[2021-10-18 23:14] LABS: Add Urine Microscopic? YES
[2021-10-18 23:27] LABS: Troponin I < 0.012 ng/mL (0.000-0.034)
--- NOTE | 2021-10-19 00:36 | PM.IMHP ---
H&P: HPI History of Present Illness Date/Time: 10/19/21 00:36 Chief Complaint: Nausea and vomiting. Narrative: This is a 71-year-old female with past medical history significant for hiatal hernia, fibromyalgia, generalized anxiety disorder. Patient is status post 12 days had Rajeev fundoplication for hiatal hernia repair. Patient presents to the emergency room due to being unable to keep anything down having nausea and vomiting for the last 2-3 days or so states that she did have problems right after surgery. Patient denies any constipation, diarrhea, abdominal pain, no chills, no fevers, no rigors. Preliminary workup was significant for CT of abdomen and pelvis with food retention in the distal esophagus. Patient is been admitted for further evaluation management and treatment. Review of Systems Review of Systems: Patient is status post Rajeev fundoplication 12+ days comes in due to nausea vomiting unable to keep anything down for the last 2-3 days. Constitutional: Constitutional: Denies chills and Denies fever(s) Eyes: Eyes: Denies change in vision ENT: Reports dysphagia, Denies vertigo, Denies dizziness, Denies nasal congestion, Denies nasal discharge, Denies nasal obstruction and Denies odynophagia Cardiovascular: Cardiovascular: Denies syncope, Denies pedal edema, Denies irregular heart rhythm, Denies claudication, Denies lightheadedness, Denies radiating jaw, neck or arm pain, Denies palpitations and Denies dyspnea on exertion Respiratory: Respiratory: Denies cough, Denies excessive phlegm production, Denies pain on inspiration and Denies dyspnea Gastrointestinal: Gastrointestinal: Denies abdominal pain, Denies dyspepsia, Denies heartburn, Reports nausea and Reports vomiting Genitourinary: Genitourinary: Denies dysuria Musculoskeletal: Musculoskeletal: Denies arthralgias and Denies joint swelling Integumentary/Breasts: Skin/Breast: Denies rash Neurologic: Denies focal weakness and Denies Sensory deficit (Neuro) Psychiatric: Psychiatric: Reports no additional psychiatric complaints and Reports as per HPI Endocrine: Endocrine: Denies cold intolerance, Denies flushing, Denies heat intolerance, Denies polyphagia, Denies polydipsia and Denies palpitations Hematologic/Lymphatic: Hematologic/Lymphatic: Reports no additional hematologic/lymphatic complaints and Reports as per HPI Allergic/Immunologic: Allergic/Immunologic: Reports no additional allergic/immunologic complaints and Reports as per HPI [facility] Past Medical History Medical History (Updated 10/20/21 @ 11:25 by Linda Alas PA-C) Anxiety Fibromyalgia History of DVT (deep vein thrombosis) Right leg DVT Seasonal allergies Torn rotator cuff Right Vertigo Surgical History Surgical History (Updated 10/19/21 @ 09:18 by Maynor Ayala MD) History of back surgery Cement put in back. 2018 History of cataract surgery History of Rajeev fundoplication repair paraesophageal hiatal hernia with intrathoracic stomach and Rajeev fundoplication 10/07/2021 History of partial hysterectomy History of tubal ligation Family History Family History Mother Family history of Alzheimer's disease Family history of malignant neoplasm of ovary Father Patient's father is Epilepsy Meningitis Other Family history of arthritis Family history of malignant neoplasm Social History Social History Smoking status: Never smoker Tobacco type: cigarettes Second hand tobacco smoke exposure: No Smoking end date: 05/29/1966 Additional smoking assessment comments: 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 Substance use: never Additional living arrangements comments: [facility] Spiritual care concerns: No Meds Home Medications and Allergies Home Medications
--- NOTE | 2021-10-19 00:38 | PC.NURSE ---
Pt currently in Radiology.
[2021-10-19] MEDS: PANTOPRAZOLE SODIUM IV 40 MG VIAL IV PUSH (00:47)
[2021-10-19 01:58] VITALS: BP 140/86; PULSE 64; RESP 18; O2SAT 96
[2021-10-19 02:00] VITALS: BMI 27.3
[2021-10-19 02:02] VITALS: BP 149/97; PULSE 59; RESP 20; TEMP 36.1; O2SAT 97
[2021-10-19 02:03] VITALS: BMI 27.3
[2021-10-19] MEDS: LACTATED RINGERS 1,000 ML 125 ML IV CONT (02:16)
[2021-10-19 05:59] LABS: Troponin I < 0.012 ng/mL (0.000-0.034)
[2021-10-19 06:00] VITALS: BP 149/97; PULSE 68; RESP 18; TEMP 36.3; O2SAT 2
[2021-10-19 06:13] LABS: Troponin I < 0.012 ng/mL (0.000-0.034)
--- NOTE | 2021-10-19 09:05 | PM.CNGS ---
Assessment and Plan Assessment and plan (1) Nausea & vomiting: Qualifiers: Vomiting type: unspecified Qualified Code(s): R11.2 - Nausea with vomiting, unspecified Code(s): R11.2 - Nausea with vomiting, unspecified Status: Acute Assessment and Plan: This is most likely due to narrowing of the distal esophagus due to swelling associated from the fundoplication. It is not an uncommon complication although rarely results in this degree of nausea and vomiting. By my review of CT scan, patient has a fair amount of food material in the distal esophagus which is contributing to the nausea and vomiting. Will get water-soluble esophagram upper GI to evaluate passage of contrast into the stomach. I do not see that there is a complication such as recurrent hiatal hernia as the cause. Sometimes steroids are helpful in this situation and we will consider them after the upper GI. Patient will most likely be here at least 2 or 3 days. Will keep her NPO for now. (2) History of Rajeev fundoplication: Code(s): Z98.890 - Other specified postprocedural states Status: Acute Assessment and Plan: Repair paraesophageal hiatal hernia with intrathoracic stomach and Rajeev fundoplication 10/07/2021. Radiologist report of CT is pending but by my review the fundoplication is intact and the stomach is in the abdomen as expected. Please see above. (3) Acute blood loss anemia: Code(s): D62 - Acute posthemorrhagic anemia Status: Acute Assessment and Plan: Anemia is stable from 10/12. H&H on 10/12 was improved from her last H&H in the hospital on 10/09. No evidence of bleeding. May have some old blood in the mediastinum noted on imaging. Plan Please see above. Water-soluble esophagram and upper GI to be done this morning. Keep NPO for now with IV fluids. May require some steroids. Obstruction seems to be food substances. She did not report any problems swallowing saliva. Am hopeful this will resolve without further procedures. History of Present Illness Consult details Consult date: 10/19/21 Reason for consult: other ( Vomiting status post Rajeev fundoplication) Requesting physician: Garfield Escalera MD Narrative: the patient is a 71-year-old woman whom I know from recent surgery. She had a large paraesophageal hiatal hernia with intrathoracic stomach as well as GERD and esophagitis. She was having obstructive symptoms. She underwent repair of the paraesophageal hiatal hernia with Rajeev fundoplication on 10/07/2021, 12 days ago. During the surgery, she had more blood loss than usual due to bleeding from some short gastric vessels. This was controlled but estimated blood loss was 600 cc. She was anemic after surgery but did not require transfusion. She was eating and tolerating low-fiber diet well and was able to be discharged on 10/09/2021. Cbc was reach checked on 10/12 and showed improvement in her hemoglobin and hematocrit. Patient continued to do well but then yesterday, she became unable to keep any food down. She tells me she was eating everything but then with her next meal she began vomiting and subsequently was unable to keep any oral laid take down. She has not had problems with saliva. When asked about her diet, she reported only things that did seem appropriate i.e. low-fiber or liquids. She does tell me that this morning she feels better in that the sticking sensation in her lower chest is gone. She has had no fever or chills. Her evaluation in the emergency room showed a stable H&H and normal white blood cell count. Electrolytes were stable as well. She is seen now in consultation regarding vomiting status post repair paraesophageal hiatal hernia with Rajeev fundoplication. Review of Systems Review of Systems: All systems reviewed & are unremarkable except as noted in HPI and below ( HPI and those items noted below) Constitutional: Constitutional: Denies chill
--- NOTE | 2021-10-19 10:01 | PM.IMPN ---
Progress Note: A&P Assessment and Plan (1) Nausea & vomiting: Qualifiers: Vomiting type: unspecified Qualified Code(s): R11.2 - Nausea with vomiting, unspecified Code(s): R11.2 - Nausea with vomiting, unspecified Status: Acute Assessment and Plan: -resolving P.r.n. antiemetics (2) Epigastric abdominal pain: Code(s): R10.13 - Epigastric pain Status: Acute Assessment and Plan: CT of the abdomen and pelvis revealed changes to the fundoplication. Fluid around the distal esophagus confirming of the area previously seen hernia sac. Retained food in the esophagus Will obtain an upper GI-Dr. Ayala with general surgery is on for consult, appreciate assistance and recommendations (3) GERD (gastroesophageal reflux disease): Qualifiers: Esophagitis presence: with esophagitis Esophagitis bleeding: without hemorrhage Qualified Code(s): K21.00 - Gastro-esophageal reflux disease with esophagitis, without bleeding Code(s): K21.9 - Gastro-esophageal reflux disease without esophagitis Status: Chronic Assessment and Plan: Start Protonix (4) Dysphagia: Qualifiers: Dysphagia type: unspecified Qualified Code(s): R13.10 - Dysphagia, unspecified Code(s): R13.10 - Dysphagia, unspecified Status: Acute Assessment and Plan: Patient has had a history of dysphagia and had dilatation previously in the past. She currently has retained food in her esophagus were and upper GI will be performed for further evaluation. (5) Paraesophageal hiatal hernia: Code(s): K44.9 - Diaphragmatic hernia without obstruction or gangrene Status: Chronic Assessment and Plan: -resolving patient had surgical intervention performed approximately 2 weeks ago. (6) Fibromyalgia: Code(s): M79.7 - Fibromyalgia Status: Acute Assessment and Plan: Holding pain medication (7) Osteoporosis: Qualifiers: Osteoporosis type: unspecified Presence of current pathological fracture: without current pathological fracture Qualified Code(s): M81.0 - Age-related osteoporosis without current pathological fracture Code(s): M81.0 - Age-related osteoporosis without current pathological fracture Status: Acute Assessment and Plan: Holding medications as patient is NPO Subjective Date/time seen: 10/19/21 10:01 Interval history: Patient is alert and oriented this morning. She reports that she has decreased nausea and vomiting. She does feel as though something is sitting on her chest. Imaging was performed this morning and resulted retained food in the esophagus. General surgery is on for consult perform an upper GI on the patient this morning. Continue to monitor, no acute events reported by RN during the night. Review of Systems Review of Systems: All systems reviewed & are unremarkable except as noted in HPI and below Exam Narrative: General: No acute distress. Mental Status: Awake, alert and oriented to person, place, and time with clear speech. Skin: Skin in warm, dry and intact without rashes or lesions. Head: Normocephalic and atraumatic. Eyes: Conjunctivae are clear without exudates or hemorrhage. Sclera is non-icteric. EOM are intact, PERRLA. Ears: The external ear and canal are non-tender and without swelling or discharge. Nose: Nasal mucosa is pink and moist. Septum midline. Nares patent bilaterally. Throat: Oral mucosa pink and moist with good dentition. Tongue midline. Neck: The neck supple without adenopathy. Trachea midline. No JVD. Cardiac: S1 and S2 regular rate and rhythm. No murmurs, gallops, or rubs auscultated. Respiratory: Chest wall symmetric, nontender and without deformity or trauma. Respirations even and unlabored. Lung sounds are clear to auscultation in all lobes bilaterally without wheezes, rhonchi, or rales. Abdominal: Abdomen soft, round and non-tender to palpation. Bowel so
[2021-10-19] MEDS: IBUPROFEN IV 800 MG/200 ML 800 MG/200 ML BAG 400 MG IVPB (11:56)
[2021-10-19] MEDS: ENOXAPARIN 40 MG/0.4 ML SYRINGE SUB-Q (11:58)
[2021-10-19] MEDS: DULoxetine HCL 60 MG CAPSULE.DR PO (12:06)
[2021-10-19 13:13] VITALS: BP 137/67; PULSE 60; RESP 16; TEMP 36.6; O2SAT 93
[2021-10-19] MEDS: HYDROCORTISONE SODIUM SUCCINATE 100 MG/2 ML VIAL 150 MG IV PUSH ×2 (14:32→21:27)
[2021-10-19] MEDS: LACTATED RINGERS 1,000 ML 80 ML IV CONT (19:01)
[2021-10-19 21:39] VITALS: O2SAT 97
[2021-10-19 21:40] VITALS: BP 135/73; PULSE 58; RESP 17; TEMP 36.5; O2SAT 96
[2021-10-20 05:38] VITALS: BP 122/63; PULSE 63; RESP 17; TEMP 36.8; O2SAT 94
[2021-10-20] MEDS: HYDROCORTISONE SODIUM SUCCINATE 100 MG/2 ML VIAL 150 MG IV PUSH ×3 (05:38→21:14)
[2021-10-20 06:18] LABS: Hematocrit 34.2 % (37.0-47.0); Mean Corpuscular HGB Conc 32.2 g/dl (32-36); Mean Corpuscular Hemoglobin 30.6 pg (26-34); Mean Platelet Volume 10.7 fl (7.4-10.4); Platelet Count Result 300 k/mm3 (150-375); Red Cell Distribution Width 14.5 % (11.5-14.5); White Blood Count 4.6 K/mm3 (4.5-10.0)
[2021-10-20 06:25] LABS: Anion Gap 6 mmol/L (8-16); Blood Urea Nitrogen 18 mg/dL (7-17); Calcium 8.3 mg/dL (8.4-10.2); Carbon Dioxide 23 mmol/L (22-30); Chloride 109 mmol/L (98-107); Estimated CRCL calculation 67 ml/min; Estimated Glomerular Filt Rate > 60; Glucose 135 mg/dL (65-110); Potassium 3.9 mmol/L (3.4-5.0); Sodium 138 mmol/L (137-145)
[2021-10-20 08:00] VITALS: PULSE 63; RESP 17; O2SAT 97
[2021-10-20 08:21] VITALS: O2SAT 97
[2021-10-20] MEDS: PANTOPRAZOLE SODIUM IV 40 MG VIAL IV PUSH (08:52)
[2021-10-20] MEDS: DULoxetine HCL 60 MG CAPSULE.DR PO (08:52)
[2021-10-20] MEDS: LACTATED RINGERS 1,000 ML 80 ML IV CONT (08:52)
[2021-10-20] MEDS: ENOXAPARIN 40 MG/0.4 ML SYRINGE SUB-Q (08:52)
--- NOTE | 2021-10-20 11:19 | P.PNIM_ITS ---
Progress Note: A&P Assessment and Plan (1) Nausea & vomiting: Qualifiers: Vomiting type: unspecified Qualified Code(s): R11.2 - Nausea with vomiting, unspecified <Linda Alas PA-C - Last Filed: 11:31> Code(s): R11.2 - Nausea with vomiting, unspecified <CAYETANO ShenC - Last Filed: 10/20/21 11:31> Status: Resolved <Linda Alas PA-C - Last Filed: 10/20/21 11:31> Assessment and Plan: Patient presented with nausea and vomiting, inability to tolerate oral intake * Suspect secondary to narrowing of distal esophagus secondary to fundoplication * Upper GI esophagram revealed abnormal narrowing of the distal esophagus with retained debrided contrast of the mid and distal esophagus consistent with obstruction * Continue with NPO except ice chips * Advance diet as tolerated per General surgery. Appreciate consultation * Gentle IV fluids while NPO * Antiemetics available as needed * Continue IV steroids per General surgery <Linda Alas PA-C - Last Filed: 10/20/21 11:31> (2) History of Rajeev fundoplication: Code(s): Z98.890 - Other specified postprocedural states <Linda Alas PA-C - Last Filed: 10/20/21 11:31> Status: Acute <Linda Alas PA-C - Last Filed: 10/20/21 11:31> Assessment and Plan: Patient underwent Rajeev fundoplication on 10/07/2021 for repair of paraesophageal hiatal hernia with intrathoracic stomach * Tolerated procedure well * Per General surgery, fundoplication appears intact based on imaging <Linda Alas PA-C - Last Filed: 10/20/21 11:31> (3) Epigastric abdominal pain: Code(s): R10.13 - Epigastric pain <Linda Alas PA-C - Last Filed: 10/20/21 11:31> Status: Resolved <Linda Alas PA-C - Last Filed: 10/20/21 11:31> Assessment and Plan: Resolved. * Supportive care * Appreciate general surgery consultation <Linda Alas PA-C - Last Filed: 10/20/21 11:31> (4) GERD (gastroesophageal reflux disease): Qualifiers: Esophagitis bleeding: without hemorrhage Esophagitis presence: with esophagitis Qualified Code(s): K21.00 - Gastro-esophageal reflux disease with esophagitis, without bleeding <Lindaoswaldo Alas PA-C - Last Filed: 10/20/21 11:31> Code(s): K21.9 - Gastro-esophageal reflux disease without esophagitis <Lindaoswaldo Alas PA-C - Last Filed: 10/20/21 11:31> Status: Chronic <Lindaoswaldo Alas PA-C - Last Filed: 10/20/21 11:31> Assessment and Plan: No acute issues * Continue IV pantoprazole <Linda Duranjaylyn PA-C - Last Filed: 10/20/21 11:31> (5) Dysphagia: Qualifiers: Dysphagia type: unspecified Qualified Code(s): R13.10 - Dysphagia, unspecified <Lindaoswaldo Alas BUDDY-C - Last Filed: 10/20/21 11:31> Code(s): R13.10 - Dysphagia, unspecified <Lindaoswaldo Duranjaylyn PA-C - Last Filed: 10/20/21 11:31> Status: Resolved <Lindaoswaldo Alas PA-C - Last Filed: 10/20/21 11:31> Assessment and Plan: Likely secondary to distal esophageal narrowing * Monitor lee diet is advanced * Consider speech therapy evaluation based on palpation is tolerating diet <Linda JordanAisha Rogerjaylyn BUDDY-C - Last Filed: 10/20/21 11:31> (6) Anemia: Code(s): D64.9 - Anemia, unspecified <Lindaoswaldo Duranjaylyn PA-C - Last Filed: 10/20/21 11:31> Status: Acute <Lindaoswaldo Duranjaylyn PA-C - Last Filed: 10/20/21 11:31> Assessment and Plan: H&H is stable on review of prior labs * Continue to monit
--- NOTE | 2021-10-20 11:19 | PM.IMPN ---
Progress Note: A&P Assessment and Plan (1) Nausea & vomiting: Qualifiers: Vomiting type: unspecified Qualified Code(s): R11.2 - Nausea with vomiting, unspecified <Linda Alas PA-C - Last Filed: 10/20/21 11:31> Code(s): R11.2 - Nausea with vomiting, unspecified <CAYETANO ShenC - Last Filed: 10/20/21 11:31> Status: Resolved <CAYETANO ShenC - Last Filed: 10/20/21 11:31> Assessment and Plan: Patient presented with nausea and vomiting, inability to tolerate oral intake Suspect secondary to narrowing of distal esophagus secondary to fundoplication Upper GI esophagram revealed abnormal narrowing of the distal esophagus with retained debrided contrast of the mid and distal esophagus consistent with obstruction Continue with NPO except ice chips Advance diet as tolerated per General surgery. Appreciate consultation Gentle IV fluids while NPO Antiemetics available as needed Continue IV steroids per General surgery <Linda Alas PA-C - Last Filed: 10/20/21 11:31> (2) History of Rajeev fundoplication: Code(s): Z98.890 - Other specified postprocedural states <Linda Alas PA-C - Last Filed: 10/20/21 11:31> Status: Acute <Linda Alas PA-C - Last Filed: 10/20/21 11:31> Assessment and Plan: Patient underwent Rajeev fundoplication on 10/07/2021 for repair of paraesophageal hiatal hernia with intrathoracic stomach Tolerated procedure well Per General surgery, fundoplication appears intact based on imaging <Linda Alas PA-C - Last Filed: 10/20/21 11:31> (3) Epigastric abdominal pain: Code(s): R10.13 - Epigastric pain <Linda Alas PA-C - Last Filed: 10/20/21 11:31> Status: Resolved <Linda Alas PA-C - Last Filed: 10/20/21 11:31> Assessment and Plan: Resolved. Supportive care Appreciate general surgery consultation <Linda Alas PA-C - Last Filed: 10/20/21 11:31> (4) GERD (gastroesophageal reflux disease): Qualifiers: Esophagitis bleeding: without hemorrhage Esophagitis presence: with esophagitis Qualified Code(s): K21.00 - Gastro-esophageal reflux disease with esophagitis, without bleeding <Linda JAisha Alas, PA-C - Last Filed: 10/20/21 11:31> Code(s): K21.9 - Gastro-esophageal reflux disease without esophagitis <Linda J. Rogerac, PA-C - Last Filed: 10/20/21 11:31> Status: Chronic <Linda J. Stimjaylyn, PA-C - Last Filed: 10/20/21 11:31> Assessment and Plan: No acute issues Continue IV pantoprazole <Linda JAisha Alas, PA-C - Last Filed: 10/20/21 11:31> (5) Dysphagia: Qualifiers: Dysphagia type: unspecified Qualified Code(s): R13.10 - Dysphagia, unspecified <Linda J. Stimac, PA-C - Last Filed: 10/20/21 11:31> Code(s): R13.10 - Dysphagia, unspecified <Linda J. Stimjaylyn, PA-C - Last Filed: 10/20/21 11:31> Status: Resolved <Linda J. Bishop, PA-C - Last Filed: 10/20/21 11:31> Assessment and Plan: Likely secondary to distal esophageal narrowing Monitor lee diet is advanced Consider speech therapy evaluation based on palpation is tolerating diet <Lindaoswaldo Alas, PA-C - Last Filed: 10/20/21 11:31> (6) Anemia: Code(s): D64.9 - Anemia, unspecified <Linda JAisha Alas, PA-C - Last Filed: 10/20/21 11:31> Status: Acute <Linda JAisha Alas, PA-C - Last Filed: 10/20/21 11:31> Assessment and Plan: H&H is stable on review of prior labs Continue to monitor <Linda JAisha Alas PA-C - Last Filed: 10/20/21 11:31> Subjective Date/time seen: 10/20/21 11:19 <Linda JAisha Alas PA-C - Last Filed: 10/20/21 11:31> Interval history: Date of service: 10/20/2021 Jayde Chambersson is a 71-year-old female with a history of DVT, fibromyalgia, anxiety, hiatal hernia s/p Rajeev fundoplication on
--- NOTE | 2021-10-20 11:22 | PM.PNGS ---
Progress Note: A&P Assessment and Plan (1) Nausea & vomiting: Qualifiers: Vomiting type: unspecified Qualified Code(s): R11.2 - Nausea with vomiting, unspecified Code(s): R11.2 - Nausea with vomiting, unspecified Status: Acute (2) History of Rajeev fundoplication: Code(s): Z98.890 - Other specified postprocedural states Status: Acute (3) Acute blood loss anemia: Code(s): D62 - Acute posthemorrhagic anemia Status: Acute Assessment and Plan: Remains stable, hgb 11 this morning. Subjective Subjective Date/Time Seen: 10/20/21 11:22 Patient reports: no new complaints, feels better and no bowel movement Interval history: This is a 71 yo F who underwent a laparoscopic repair hiatal hernia with Rajeev fundoplication on 10/07/21 and was discharged on POD#2. She returned to the ER with nausea and vomiting on 10/18/21 and has been admitted. Chart reviewed. Patient now seen and examined. She is currently NPO except ice chips. She reports feeling better today. She denies any abdominal pain or nausea. She is walking around in her room when I first entered and is doing well with activity. Review of Systems Review of Systems: All systems reviewed & are unremarkable except as noted in HPI and below Exam Const: General: no acute distress and awake Orientation/consciousness: patient oriented x3 Resp: Effort & Inspection: normal respiratory effort Auscultation: clear to auscultation bilaterally Cardio: Rate: regular rate Rhythm: regular rhythm GI: Inspection: non-distended and incision (Abdominal incisions dry and healing well) GI Palp: Yes Soft to palpation, No Tenderness to palpation present (GI) and No Guarding due to palpation present (GI) Auscultation: Hypoactive bowel sounds present Neuro: General: moves all extremities and no focal motor deficits Extrem: General: no calf tenderness and no edema Psych: Insight: Good insight present (Psych) Judgement: Good judgement present (Psych) Objective Data Vital Signs Vital Signs: Vital Signs - 24 hr 10/19/21 13:13 10/19/21 20:00 10/19/21 21:40 Temperature 97.9 F 97.7 F Pulse Rate 60 58 L Respiratory Rate 16 17 Blood Pressure 137/67 135/73 Pulse Oximetry 93 96 Oxygen Delivery Room Air 10/20/21 05:38 10/19/21 21:39 10/20/21 08:21 Temperature 98.2 F Pulse Rate 63 Respiratory Rate 17 Blood Pressure 122/63 Pulse Oximetry 94 97 97 Oxygen Delivery Room Air Room Air 10/20/21 08:00 Temperature Pulse Rate 63 Respiratory Rate 17 Blood Pressure Pulse Oximetry 97 Oxygen Delivery Room Air Intake/Output Intake/Output: Intake & Output 10/17/21 10/18/21 10/19/21 10/20/21 23:59 23:59 23:59 23:59 Intake Total 2200 1000 Output Total 900 400 Balance 1300 600 Meds/Results Medications: Active Medications Generic Name Dose Route Start Last Admin Trade Name Freq PRN Reason Stop Dose Admin Acetaminophen 650 mg 10/19/21 08:15 Acetaminophen 650 Mg Suppository RECTAL Q6H PRN Mild Pain (1-3) or Fever Duloxetine HCl 60 mg 10/20/21 09:00 10/20/21 08:52 Duloxetine Hcl 60 Mg Capsule.Dr PO 60 mg QAM MARCEL Administration Enoxaparin Sodium 40 mg 10/20/21 09:00 10/20/21 08:52 Enoxaparin 40 Mg/0.4 Ml Syringe SUB-Q 40 mg DAILY MARCEL Administration Fentanyl Citrate 25 mcg 10/19/21 11:20 Fentanyl Citrate Inj (*Crx) 100 Mcg/2 Ml Vial IV PUSH Q2H PRN Pain Rated 7-10 Hydrocortisone Sodium Succinate 150 mg 10/19/21 14:00 10/20/21 05:38 Hydrocortisone Sodium Succinate 100 Mg/2 Ml Vial IV PUSH 150 mg Q8HR MARCEL Administration Lactated Ringer's 1,000 mls @ 80 mls/hr 10/19/21 00:40 10/20/21 08:52 Lr - Lactated Ringers Iv IV CONT 80 mls/hr .[id number] MARCEL Administration Ibuprofen 800 mg in 200 mls @ 400 mls/hr 10/19/21 11:20 10/19/21 12:26 Caldolor 800 Mg/200 Ml IVPB Infused Q6H PRN Infusion Pain Rated 4-6 Pantop
--- NOTE | 2021-10-20 12:12 | PM.PNGS ---
Progress Note: A&P Assessment and Plan (1) Nausea & vomiting: Qualifiers: Vomiting type: unspecified Qualified Code(s): R11.2 - Nausea with vomiting, unspecified Code(s): R11.2 - Nausea with vomiting, unspecified Status: Acute Assessment and Plan: Imaging shows distal esophagus blocked by food substances and esophagus narrowed at site of fundoplication. Explained this to the patient. This was my expectation on admission. She is on Solu-Medrol and will keep NPO except ice chips today. Continue IV fluids. Probably try clear liquids tomorrow. If no resolution, may need EGD. (2) History of Rajeev fundoplication: Code(s): Z98.890 - Other specified postprocedural states Status: Acute Assessment and Plan: Swelling of fundoplication typically causes esophageal narrowing which was explained to patient prior to surgery. (3) Anemia: Code(s): D64.9 - Anemia, unspecified Status: Acute Assessment and Plan: Stable Subjective Subjective Date/Time Seen: 10/20/21 12:12 Patient reports: feels better, vomiting and afebrile Interval history: Patient had small amount clear liquids yesterday and promptly had emesis. Review of Systems Review of Systems: All systems reviewed & are unremarkable except as noted in HPI and below (HPI) Cardiovascular: Cardiovascular: Denies chest pain and Denies dyspnea Respiratory: Respiratory: Denies cough and Denies dyspnea Gastrointestinal: Gastrointestinal: Reports as per HPI Neurologic: Denies confusion and Denies headache(s) Exam Const: General: comfortable and no acute distress; No confusion Orientation/consciousness: patient oriented x3 and No confusion Resp: Effort & Inspection: normal respiratory effort Auscultation: clear to auscultation bilaterally GI: GI Palp: Yes Soft to palpation, Yes Tenderness to palpation present (GI), No Guarding due to palpation present (GI) and No Rebound tenderness present Auscultation: normal bowel sounds Neuro: General: patient oriented x3, no focal motor deficits and No confusion Extrem: General: no calf tenderness and no edema Psych: Affect: normal affect Insight: Good insight present (Psych) Judgement: Good judgement present (Psych) Objective Data Vital Signs Vital Signs: Vital Signs - 24 hr 10/19/21 13:13 10/19/21 20:00 10/19/21 21:40 Temperature 36.6 C 36.5 C Pulse Rate 60 58 L Respiratory Rate 16 17 Blood Pressure 137/67 135/73 Pulse Oximetry 93 96 Oxygen Delivery Room Air 10/20/21 05:38 10/19/21 21:39 10/20/21 08:21 Temperature 36.8 C Pulse Rate 63 Respiratory Rate 17 Blood Pressure 122/63 Pulse Oximetry 94 97 97 Oxygen Delivery Room Air Room Air 10/20/21 08:00 Temperature Pulse Rate 63 Respiratory Rate 17 Blood Pressure Pulse Oximetry 97 Oxygen Delivery Room Air Intake/Output Intake/Output: Intake & Output 10/17/21 10/18/21 10/19/21 10/20/21 23:59 23:59 23:59 23:59 Intake Total 2200 1000 Output Total 900 400 Balance 1300 600 Meds/Results Medications: Active Medications Generic Name Dose Route Start Last Admin Trade Name Freq PRN Reason Stop Dose Admin Acetaminophen 650 mg 10/19/21 08:15 Acetaminophen 650 Mg Suppository RECTAL Q6H PRN Mild Pain (1-3) or Fever Duloxetine HCl 60 mg 10/20/21 09:00 10/20/21 08:52 Duloxetine Hcl 60 Mg Capsule.Dr PO 60 mg QAM MARCEL Administration Enoxaparin Sodium 40 mg 10/20/21 09:00 10/20/21 08:52 Enoxaparin 40 Mg/0.4 Ml Syringe SUB-Q 40 mg DAILY MARCEL Administration Fentanyl Citrate 25 mcg 10/19/21 11:20 Fentanyl Citrate Inj (*Crx) 100 Mcg/2 Ml Vial IV PUSH Q2H PRN Pain Rated 7-10 Hydrocortisone Sodium Succinate 150 mg 10/19/21 14:00 10/20/21 05:38 Hydrocortisone Sodium Succinate 100 Mg/2 Ml Vial IV PUSH 150 mg Q8HR MARCEL Administration Lactated Ringer's 1,000 mls @ 80 mls/hr 10/19/21 00:40 10/20/21 08:5
[2021-10-20 13:48] VITALS: BP 125/73; PULSE 68; RESP 16; TEMP 36.1; O2SAT 96
[2021-10-20 20:00] VITALS: PULSE 68; RESP 18; O2SAT 97
[2021-10-20 21:28] VITALS: BP 129/74; PULSE 68; RESP 18; TEMP 36.7; O2SAT 97
[2021-10-21] MEDS: LACTATED RINGERS 1,000 ML 80 ML IV CONT ×3 (03:00→20:46)
[2021-10-21] MEDS: IBUPROFEN IV 800 MG/200 ML 800 MG/200 ML BAG 400 MG IVPB (03:34)
[2021-10-21 05:22] VITALS: O2SAT 95
[2021-10-21 05:31] VITALS: BP 109/66; PULSE 56; RESP 18; TEMP 36.7; O2SAT 95
[2021-10-21] MEDS: HYDROCORTISONE SODIUM SUCCINATE 100 MG/2 ML VIAL 150 MG IV PUSH ×3 (05:37→20:46)
[2021-10-21 06:21] LABS: Hemoglobin 9.9 g/dL (12.0-15.0); Mean Corpuscular HGB Conc 31.9 g/dl (32-36); Mean Corpuscular Hemoglobin 30.3 pg (26-34); Mean Corpuscular Volume 94.8 fl (80-100); Mean Platelet Volume 10.9 fl (7.4-10.4); Platelet Count Result 260 k/mm3 (150-375); Red Blood Count 3.27 M/mm3 (4.2-5.4); Red Cell Distribution Width 14.8 % (11.5-14.5); White Blood Count 6.5 K/mm3 (4.5-10.0)
[2021-10-21 06:35] LABS: Anion Gap 5 mmol/L (8-16); Blood Urea Nitrogen 28 mg/dL (7-17); Carbon Dioxide 26 mmol/L (22-30); Chloride 106 mmol/L (98-107); Estimated CRCL calculation 58 ml/min; Estimated Glomerular Filt Rate > 60; Glucose 133 mg/dL (65-110); Potassium 3.8 mmol/L (3.4-5.0); Sodium 137 mmol/L (137-145)
[2021-10-21] MEDS: ENOXAPARIN 40 MG/0.4 ML SYRINGE SUB-Q (08:24)
[2021-10-21] MEDS: DULoxetine HCL 60 MG CAPSULE.DR PO (08:24)
[2021-10-21] MEDS: PANTOPRAZOLE SODIUM IV 40 MG VIAL IV PUSH (08:25)
--- NOTE | 2021-10-21 10:59 | P.PNIM_ITS ---
Progress Note: A&P Assessment and Plan (1) Nausea & vomiting: Qualifiers: Vomiting type: unspecified Qualified Code(s): R11.2 - Nausea with vomiting, unspecified <Linda Alas PA-C - Last Filed: 11:10> Code(s): R11.2 - Nausea with vomiting, unspecified <CAYETANO ShenC - Last Filed: 10/21/21 11:10> Status: Resolved <CAYETANO ShenC - Last Filed: 10/21/21 11:10> Assessment and Plan: Patient presented with nausea and vomiting, inability to tolerate oral intake * Suspect secondary to narrowing of distal esophagus secondary to fundoplication * Upper GI esophagram revealed abnormal narrowing of the distal esophagus with retained debrided contrast of the mid and distal esophagus consistent with obstruction * Appreciate general surgery consultation * Continue with NPO except ice chips. Per surgery, may consider advance to clear liquids today but will await further recommendations * Gentle IV fluids while NPO * Antiemetics available as needed * Continue IV steroids per General surgery <CAYETANO ShenC - Last Filed: 10/21/21 11:10> (2) History of Rajeev fundoplication: Code(s): Z98.890 - Other specified postprocedural states <Linda Alas PA-C - Last Filed: 10/21/21 11:10> Status: Acute <CAYETANO ShenC - Last Filed: 10/21/21 11:10> Assessment and Plan: Patient underwent Rajeev fundoplication on 10/07/2021 for repair of paraesophageal hiatal hernia with intrathoracic stomach * Tolerated procedure well * Per General surgery, fundoplication appears intact based on imaging <CAYETANO ShenC - Last Filed: 10/21/21 11:10> (3) Epigastric abdominal pain: Code(s): R10.13 - Epigastric pain <CAYETANO ShenC - Last Filed: 10/21/21 11:10> Status: Resolved <CAYETANO ShenC - Last Filed: 10/21/21 11:10> Assessment and Plan: Resolved. * Supportive care * Appreciate general surgery consultation <Linda Alas BUDDY-C - Last Filed: 10/21/21 11:10> (4) GERD (gastroesophageal reflux disease): Qualifiers: Esophagitis bleeding: without hemorrhage Esophagitis presence: with esophagitis Qualified Code(s): K21.00 - Gastro-esophageal reflux disease with esophagitis, without bleeding <Linda Alas BUDDY-C - Last Filed: 10/21/21 11:10> Code(s): K21.9 - Gastro-esophageal reflux disease without esophagitis <Linda Alas PA-C - Last Filed: 10/21/21 11:10> Status: Chronic <Linda Alas BUDDY-C - Last Filed: 10/21/21 11:10> Assessment and Plan: No acute issues * Continue IV pantoprazole <Linda Alas BUDDY-C - Last Filed: 10/21/21 11:10> (5) Dysphagia: Qualifiers: Dysphagia type: unspecified Qualified Code(s): R13.10 - Dys phagia, unspecified <Linda Alas PA-C - Last Filed: 10/21/21 11:10> Code(s): R13.10 - Dysphagia, unspecified <Linda Alas PA-C - Last Filed: 10/21/21 11:10> Status: Resolved <Linda Alas PA-C - Last Filed: 10/21/21 11:10> Assessment and Plan: Likely secondary to distal esophageal narrowing * Monitor lee diet is advanced * Consider speech therapy evaluation based on how patient is tolerating diet <Linda JordanAisha Rogerjaylyn BUDDY-C - Last Filed: 10/21/21 11:10> (6) Anemia: Code(s): D64.9 - Anemia, unspecified <Linda Duranjaylyn PA-C - Last Filed: 10/21/21 11:10> Status: Acute <Lindaoswaldo Alas PA-C - Last Filed: 10/21/21 11:10> Assessment and Plan:
--- NOTE | 2021-10-21 10:59 | PM.IMPN ---
Progress Note: A&P Assessment and Plan (1) Nausea & vomiting: Qualifiers: Vomiting type: unspecified Qualified Code(s): R11.2 - Nausea with vomiting, unspecified <Linda Alas PA-C - Last Filed: 10/21/21 11:10> Code(s): R11.2 - Nausea with vomiting, unspecified <CAYETANO ShenC - Last Filed: 10/21/21 11:10> Status: Resolved <CAYETANO ShenC - Last Filed: 10/21/21 11:10> Assessment and Plan: Patient presented with nausea and vomiting, inability to tolerate oral intake Suspect secondary to narrowing of distal esophagus secondary to fundoplication Upper GI esophagram revealed abnormal narrowing of the distal esophagus with retained debrided contrast of the mid and distal esophagus consistent with obstruction Appreciate general surgery consultation Continue with NPO except ice chips. Per surgery, may consider advance to clear liquids today but will await further recommendations Gentle IV fluids while NPO Antiemetics available as needed Continue IV steroids per General surgery <CAYETANO ShenC - Last Filed: 10/21/21 11:10> (2) History of Rajeev fundoplication: Code(s): Z98.890 - Other specified postprocedural states <CAYETANO ShenC - Last Filed: 10/21/21 11:10> Status: Acute <CAYETANO ShenC - Last Filed: 10/21/21 11:10> Assessment and Plan: Patient underwent Rajeev fundoplication on 10/07/2021 for repair of paraesophageal hiatal hernia with intrathoracic stomach Tolerated procedure well Per General surgery, fundoplication appears intact based on imaging <CAYETANO ShenC - Last Filed: 10/21/21 11:10> (3) Epigastric abdominal pain: Code(s): R10.13 - Epigastric pain <CAYETANO ShenC - Last Filed: 10/21/21 11:10> Status: Resolved <CAYETANO ShenC - Last Filed: 10/21/21 11:10> Assessment and Plan: Resolved. Supportive care Appreciate general surgery consultation <Linda Alas PA-C - Last Filed: 10/21/21 11:10> (4) GERD (gastroesophageal reflux disease): Qualifiers: Esophagitis bleeding: without hemorrhage Esophagitis presence: with esophagitis Qualified Code(s): K21.00 - Gastro-esophageal reflux disease with esophagitis, without bleeding <Linda JAisha Duranjaylyn, PA-C - Last Filed: 10/21/21 11:10> Code(s): K21.9 - Gastro-esophageal reflux disease without esophagitis <Linda J. Rogerac, PA-C - Last Filed: 10/21/21 11:10> Status: Chronic <Linda J. Rogerac, PA-C - Last Filed: 10/21/21 11:10> Assessment and Plan: No acute issues Continue IV pantoprazole <Linda J. Rogerjaylyn, PA-C - Last Filed: 10/21/21 11:10> (5) Dysphagia: Qualifiers: Dysphagia type: unspecified Qualified Code(s): R13.10 - Dysphagia, unspecified <Linda J. Rogerac, PA-C - Last Filed: 10/21/21 11:10> Code(s): R13.10 - Dysphagia, unspecified <Linda J. Stimac, PA-C - Last Filed: 10/21/21 11:10> Status: Resolved <Linda J. Rogerjaylyn, PA-C - Last Filed: 10/21/21 11:10> Assessment and Plan: Likely secondary to distal esophageal narrowing Monitor lee diet is advanced Consider speech therapy evaluation based on how patient is tolerating diet <Linda JAisha Rogerjaylyn, PA-C - Last Filed: 10/21/21 11:10> (6) Anemia: Code(s): D64.9 - Anemia, unspecified <Linda J. Rogerac, PA-C - Last Filed: 10/21/21 11:10> Status: Acute <Linda J. Rogerjaylyn, PA-C - Last Filed: 10/21/21 11:10> Assessment and Plan: H&H is stable on review of prior labs Continue to monitor <Linda J. Rogerjaylyn, PA-C - Last Filed: 10/21/21 11:10> Subjective Date/time seen: 05/26/22 10:59 <Linda Alas PA-C - Last Filed: 10/21/21 11:10> Interval history: Date of service: 10/21/2021 Jayde Boateng is a 71-year-old female with a history of DVT, fibromy
--- NOTE | 2021-10-21 12:04 | PM.PNGS ---
Progress Note: A&P Assessment and Plan (1) Nausea & vomiting: Qualifiers: Vomiting type: unspecified Qualified Code(s): R11.2 - Nausea with vomiting, unspecified Code(s): R11.2 - Nausea with vomiting, unspecified Status: Acute Assessment and Plan: Continue IV Solu-medrol and IV fluids. Will start a clear liquid diet today and see how she does. If she vomits again, then we will need to make her NPO and likely consult GI for evaluation. Encouraged walking the halls. (2) History of Rajeev fundoplication: Code(s): Z98.890 - Other specified postprocedural states Status: Acute (3) Anemia: Code(s): D64.9 - Anemia, unspecified Status: Acute Plan I have discussed the patient's case and plan of care with Dr. Ayala. Subjective Subjective Date/Time Seen: 10/21/21 12:04 Patient reports: no new complaints and feels better Interval history: Patient seen and examined. She reports having an episode of left sided chest pain around 3:00 am this morning that was sharp and lasted about 10 minutes. She had taken Ibuprofen IV and the pain was alleviated completely. She denies any shortness of breath or further chest pain since that episode. No nausea or vomiting. No other complaints at this time. Review of Systems Review of Systems: All systems reviewed & are unremarkable except as noted in HPI and below Cardiovascular: Cardiovascular: Reports no additional cardiovascular complaints, Denies chest pain with activity, Denies rapid heart rate, Denies leg edema and Denies dyspnea Gastrointestinal: Gastrointestinal: Reports as per HPI and Reports no additional gastrointestinal complaints Exam Const: General: comfortable, no acute distress and awake Orientation/consciousness: patient oriented x3 Resp: Effort & Inspection: normal respiratory effort Auscultation: clear to auscultation bilaterally Cardio: Rate: regular rate Rhythm: regular rhythm GI: Inspection: non-distended and incision (Incisions healing well) GI Palp: Yes Soft to palpation, No Tenderness to palpation present (GI) and No Guarding due to palpation present (GI) Auscultation: normal bowel sounds Neuro: General: moves all extremities and no focal motor deficits Extrem: General: no calf tenderness and no edema Psych: Insight: Good insight present (Psych) Judgement: Good judgement present (Psych) Objective Data Vital Signs Vital Signs: Vital Signs - 24 hr 10/20/21 13:48 10/20/21 21:28 10/20/21 20:00 Temperature 96.9 F L 98.1 F Pulse Rate 68 68 68 Respiratory Rate 16 18 18 Blood Pressure 125/73 129/74 Pulse Oximetry 96 97 97 Oxygen Delivery Room Air 10/21/21 05:22 10/21/21 05:31 10/21/21 08:25 Temperature 98.0 F Pulse Rate 56 L Respiratory Rate 18 Blood Pressure 109/66 Pulse Oximetry 95 95 Oxygen Delivery Room Air Room Air Intake/Output Intake/Output: Intake & Output 10/18/21 10/19/21 10/20/21 10/21/21 23:59 23:59 23:59 23:59 Intake Total 2200 2000 20 Output Total 900 900 500 Balance 1300 1100 -480 Meds/Results Medications: Active Medications Generic Name Dose Route Start Last Admin Trade Name Freq PRN Reason Stop Dose Admin Acetaminophen 650 mg 10/19/21 08:15 Acetaminophen 650 Mg Suppository RECTAL Q6H PRN Mild Pain (1-3) or Fever Duloxetine HCl 60 mg 10/20/21 09:00 10/21/21 08:24 Duloxetine Hcl 60 Mg Capsule.Dr PO 60 mg QAM MARCEL Administration Enoxaparin Sodium 40 mg 10/20/21 09:00 10/21/21 08:24 Enoxaparin 40 Mg/0.4 Ml Syringe SUB-Q 40 mg DAILY MARCEL Administration Fentanyl Citrate 25 mcg 10/19/21 11:20 Fentanyl Citrate Inj (*Crx) 100 Mcg/2 Ml Vial IV PUSH Q2H PRN Pain Rated 7-10 Hydrocortisone Sodium Succinate 150 mg 10/19/21 14:00 10/21/21 05:37 Hydrocortisone Sodium Succinate 100 Mg/2 Ml Vial IV PUSH 150 mg Q8HR MARCEL Administration Lactated Ringer's 1,000 mls @ 80 mls/hr 10/19/21 00:40
[2021-10-21 14:00] VITALS: BP 139/77; PULSE 51; RESP 18; TEMP 36.8; O2SAT 99
[2021-10-21 14:33] VITALS: O2SAT 95
[2021-10-21 21:28] VITALS: BP 125/73; PULSE 57; RESP 16; TEMP 37.2; O2SAT 96
--- NOTE | 2021-10-21 21:43 | PC.NURSE ---
pt up and walking halls as recommended. Pt states her phone tracked 0.5 miles walked [place]
[2021-10-22] MEDS: HYDROCORTISONE SODIUM SUCCINATE 100 MG/2 ML VIAL 150 MG IV PUSH (05:42)
[2021-10-22 05:45] VITALS: BP 121/66; PULSE 55; RESP 16; TEMP 36.3; O2SAT 95
[2021-10-22 07:04] LABS: Hemoglobin 11.1 g/dL (12.0-15.0); Mean Corpuscular HGB Conc 31.7 g/dl (32-36); Mean Corpuscular Hemoglobin 30.2 pg (26-34); Mean Corpuscular Volume 95.1 fl (80-100); Mean Platelet Volume 10.9 fl (7.4-10.4); Platelet Count Result 270 k/mm3 (150-375); Red Blood Count 3.68 M/mm3 (4.2-5.4); Red Cell Distribution Width 14.9 % (11.5-14.5); White Blood Count 5.5 K/mm3 (4.5-10.0)
[2021-10-22 07:34] LABS: Anion Gap 6 mmol/L (8-16); Blood Urea Nitrogen 24 mg/dL (7-17); Calcium 8.1 mg/dL (8.4-10.2); Carbon Dioxide 24 mmol/L (22-30); Chloride 106 mmol/L (98-107); Estimated CRCL calculation 78 ml/min; Estimated Glomerular Filt Rate > 60; Glucose 125 mg/dL (65-110); Potassium 3.7 mmol/L (3.4-5.0); Sodium 136 mmol/L (137-145)
[2021-10-22] MEDS: DULoxetine HCL 60 MG CAPSULE.DR PO (09:04)
[2021-10-22] MEDS: PANTOPRAZOLE SODIUM IV 40 MG VIAL IV PUSH (09:04)
[2021-10-22] MEDS: ENOXAPARIN 40 MG/0.4 ML SYRINGE SUB-Q (09:04)
--- NOTE | 2021-10-22 12:48 | PM.PNGS ---
Progress Note: A&P Assessment and Plan (1) Nausea & vomiting: Qualifiers: Vomiting type: unspecified Qualified Code(s): R11.2 - Nausea with vomiting, unspecified Code(s): R11.2 - Nausea with vomiting, unspecified Status: Acute Assessment and Plan: resolved, tolerating clear liquids well. Was due to esophageal narrowing from fundoplication as well as solid food backing up in her esophagus. Doing much better will advance to full liquids and decrease her Solu-Medrol to 100 mg q.8 hours. (2) History of Rajeev fundoplication: Code(s): Z98.890 - Other specified postprocedural states Status: Acute Assessment and Plan: Doing well. See above (3) Anemia: Code(s): D64.9 - Anemia, unspecified Status: Acute Assessment and Plan: stable and improving Subjective Subjective Date/Time Seen: 10/22/21 12:48 Patient reports: feels better, tolerating liquids well and bowel movement Exam Const: General: comfortable and no acute distress; No confusion Orientation/consciousness: patient oriented x3 and No confusion GI: Inspection: non-distended and incision ( dry and healing well) GI Palp: Yes Soft to palpation, Yes Tenderness to palpation present (GI) ( nearly nontender), No Guarding due to palpation present (GI) and No Rebound tenderness present Auscultation: normal bowel sounds Neuro: General: patient oriented x3, no focal motor deficits and No confusion Extrem: General: no calf tenderness and no edema Psych: Affect: normal affect Insight: Good insight present (Psych) Judgement: Good judgement present (Psych) Objective Data Vital Signs Vital Signs: Vital Signs - 24 hr 10/21/21 14:00 10/21/21 14:33 10/21/21 21:28 Temperature 36.8 C 37.2 C Pulse Rate 51 L 57 L Respiratory Rate 18 16 Blood Pressure 139/77 125/73 Pulse Oximetry 99 95 96 Oxygen Delivery Room Air 10/22/21 05:45 10/22/21 09:07 Temperature 36.3 C L Pulse Rate 55 L Respiratory Rate 16 Blood Pressure 121/66 Pulse Oximetry 95 Oxygen Delivery Room Air Intake/Output Intake/Output: Intake & Output 10/19/21 10/20/21 10/21/21 10/22/21 23:59 23:59 23:59 23:59 Intake Total 2200 1999 2840 780 Output Total 900 043 387 7807 Balance 1300 1100 1940 -220 Meds/Results Medications: Active Medications Generic Name Dose Route Start Last Admin Trade Name Carolee PRN Reason Stop Dose Admin Duloxetine HCl 60 mg 10/20/21 09:00 10/22/21 09:04 Duloxetine Hcl 60 Mg Capsule. PO 60 mg QAM MARCEL Administration Enoxaparin Sodium 40 mg 10/20/21 09:00 10/22/21 09:04 Enoxaparin 40 Mg/0.4 Ml Syringe SUB-Q 40 mg DAILY MARCEL Administration Fentanyl Citrate 25 mcg 10/19/21 11:20 Fentanyl Citrate Inj (*Crx) 100 Mcg/2 Ml Vial IV PUSH Q2H PRN Pain Rated 7-10 Radiology Results: ITS Impressions Chest X-Ray 10/19/21 06:44 IMPRESSION: 1. Mild atelectasis in the lower lung zones. 2. Mass in the posterior mediastinum, likely surgical changes from hiatal hernia repair. Consider an upper gastrointestinal series. Abdomen/Pelvis CT 10/19/21 08:44 IMPRESSION: 1. Changes of recent fundoplication. Fluid around the distal esophagus conforming to the area of the previously seen hernia sac. 2. Retained food in the esophagus. 3. Small pleural effusions. Upper GI Series 10/19/21 11:21 IMPRESSION: 1. Abnormal narrowing of the distal esophagus with retained debris and contrast in the mid and distal esophagus, consistent with obstruction. Labs Labs: Laboratory Results - last 24 hr 10/22/21 10/22/21 06:55 06:55 WBC 5.5 RBC 3.68 L Hgb 11.1 L Hct 35.0 L MCV 95.1 MCH 30.2 MCHC 31.7 L RDW 14.9 H Plt Count 270 MPV 10.9 H Sodium 136 L Potassium 3.7 Chloride 106 Carbon Dioxide 24 Anion Gap 6 L BUN 24 H Creatinine 0.50 L Estim Creat Clear Calc 78 Estimated GFR > 60 Glucose 125 H
--- NOTE | 2021-10-22 13:50 | P.PNIM_ITS ---
Progress Note: A&P Assessment and Plan (1) Nausea & vomiting: Qualifiers: Vomiting type: unspecified Qualified Code(s): R11.2 - Nausea with vomiting, unspecified <Linda Alas PA-C - Last Filed: 14:02> Code(s): R11.2 - Nausea with vomiting, unspecified <CAYETANO ShenC - Last Filed: 10/22/21 14:02> Status: Resolved <CAYETANO ShenC - Last Filed: 10/22/21 14:02> Assessment and Plan: Patient presented with nausea and vomiting, inability to tolerate oral intake * Suspect secondary to narrowing of distal esophagus secondary to fundoplication * Upper GI esophagram revealed abnormal narrowing of the distal esophagus with retained debrided contrast of the mid and distal esophagus consistent with obstruction * Appreciate general surgery consultation * Advanced to full liquid diet. Continue to advance diet as tolerated * Will discontinue IV fluids as patient is tolerating p.o. intake * Antiemetics available as needed * Continue IV steroids per General surgery <CAYETANO ShenC - Last Filed: 10/22/21 14:02> (2) History of Rajeev fundoplication: Code(s): Z98.890 - Other specified postprocedural states <Linda Alas PA-C - Last Filed: 10/22/21 14:02> Status: Acute <CAYETANO ShenC - Last Filed: 10/22/21 14:02> Assessment and Plan: Patient underwent Rajeev fundoplication on 10/07/2021 for repair of paraesophageal hiatal hernia with intrathoracic stomach * Tolerated procedure well * Per General surgery, fundoplication appears intact based on imaging <Linda Alas PA-C - Last Filed: 10/22/21 14:02> (3) Epigastric abdominal pain: Code(s): R10.13 - Epigastric pain <CAYETANO ShenC - Last Filed: 10/22/21 14:02> Status: Resolved <CAYETANO ShenC - Last Filed: 10/22/21 14:02> Assessment and Plan: Resolved. * Supportive care * Appreciate general surgery consultation <Linda Alas, BUDDY-C - Last Filed: 10/22/21 14:02> (4) GERD (gastroesophageal reflux disease): Qualifiers: Esophagitis bleeding: without hemorrhage Esophagitis presence: with esophagitis Qualified Code(s): K21.00 - Gastro-esophageal reflux disease with esophagitis, without bleeding <Lindaoswaldo Alas, PA-C - Last Filed: 10/22/21 14:02> Code(s): K21.9 - Gastro-esophageal reflux disease without esophagitis <Lindaoswaldo Alas, PA-C - Last Filed: 10/22/21 14:02> Status: Chronic <Lindaoswaldo Alas, PA-C - Last Filed: 10/22/21 14:02> Assessment and Plan: No acute issues * Continue pantoprazole <Linda Alas, PA-C - Last Filed: 10/22/21 14:02> (5) Dysphagia: Qualifiers: Dysphagia type: unspecified Qualified Code(s): R13.10 - Dysphagia, unspecified <Linda Alas, PA-C - Last Filed: 10/22/21 14:02> Code(s): R13.10 - Dysphagia, unspecified <Lindaoswaldo Alas, PA-C - Last Filed: 10/22/21 14:02> Status: Resolved <Linda Alas, PA-C - Last Filed: 10/22/21 14:02> Assessment and Plan: Likely secondary to distal esophageal narrowing * No further issues and patient is tolerating oral intake <Linda Alas, PA-C - Last Filed: 10/22/21 14:02> (6) Anemia: Code(s): D64.9 - Anemia, unspecified <Lindaoswaldo Alas, PA-C - Last Filed: 10/22/21 14:02> Status: Acute <Linda JAisha Alas, PA-C - Last Filed: 10/22/21 14:02> Assessment and Plan: H&H is stable on review of prior labs * Continue to monitor <Mal
--- NOTE | 2021-10-22 13:50 | PM.IMPN ---
Progress Note: A&P Assessment and Plan (1) Nausea & vomiting: Qualifiers: Vomiting type: unspecified Qualified Code(s): R11.2 - Nausea with vomiting, unspecified <Linda Alas PA-C - Last Filed: 10/22/21 14:02> Code(s): R11.2 - Nausea with vomiting, unspecified <CAYETANO ShenC - Last Filed: 10/22/21 14:02> Status: Resolved <CAYETANO ShenC - Last Filed: 10/22/21 14:02> Assessment and Plan: Patient presented with nausea and vomiting, inability to tolerate oral intake Suspect secondary to narrowing of distal esophagus secondary to fundoplication Upper GI esophagram revealed abnormal narrowing of the distal esophagus with retained debrided contrast of the mid and distal esophagus consistent with obstruction Appreciate general surgery consultation Advanced to full liquid diet. Continue to advance diet as tolerated Will discontinue IV fluids as patient is tolerating p.o. intake Antiemetics available as needed Continue IV steroids per General surgery <CAYETANO ShenC - Last Filed: 10/22/21 14:02> (2) History of Rajeev fundoplication: Code(s): Z98.890 - Other specified postprocedural states <CAYETANO ShenC - Last Filed: 10/22/21 14:02> Status: Acute <CAYETANO ShenC - Last Filed: 10/22/21 14:02> Assessment and Plan: Patient underwent Rajeev fundoplication on 10/07/2021 for repair of paraesophageal hiatal hernia with intrathoracic stomach Tolerated procedure well Per General surgery, fundoplication appears intact based on imaging <CAYETANO ShenC - Last Filed: 10/22/21 14:02> (3) Epigastric abdominal pain: Code(s): R10.13 - Epigastric pain <CAYETANO ShenC - Last Filed: 10/22/21 14:02> Status: Resolved <CAYETANO ShenC - Last Filed: 10/22/21 14:02> Assessment and Plan: Resolved. Supportive care Appreciate general surgery consultation <Linda Alas PA-C - Last Filed: 10/22/21 14:02> (4) GERD (gastroesophageal reflux disease): Qualifiers: Esophagitis bleeding: without hemorrhage Esophagitis presence: with esophagitis Qualified Code(s): K21.00 - Gastro-esophageal reflux disease with esophagitis, without bleeding <Linda J. Rogerjaylyn, PA-C - Last Filed: 10/22/21 14:02> Code(s): K21.9 - Gastro-esophageal reflux disease without esophagitis <Linda J. Stimac, PA-C - Last Filed: 10/22/21 14:02> Status: Chronic <Linda J. Stimac, PA-C - Last Filed: 10/22/21 14:02> Assessment and Plan: No acute issues Continue pantoprazole <Linda J. Bishop, PA-C - Last Filed: 10/22/21 14:02> (5) Dysphagia: Qualifiers: Dysphagia type: unspecified Qualified Code(s): R13.10 - Dysphagia, unspecified <Linda J. Stimac, PA-C - Last Filed: 10/22/21 14:02> Code(s): R13.10 - Dysphagia, unspecified <Linda J. Stimac, PA-C - Last Filed: 10/22/21 14:02> Status: Resolved <Linda J. Stimjaylyn, PA-C - Last Filed: 10/22/21 14:02> Assessment and Plan: Likely secondary to distal esophageal narrowing No further issues and patient is tolerating oral intake <Linda JAisha Alas, PA-C - Last Filed: 10/22/21 14:02> (6) Anemia: Code(s): D64.9 - Anemia, unspecified <Linda J. Stimac, PA-C - Last Filed: 10/22/21 14:02> Status: Acute <Linda J. Bishop, PA-C - Last Filed: 10/22/21 14:02> Assessment and Plan: H&H is stable on review of prior labs Continue to monitor <Linda J. Bishop, PA-C - Last Filed: 10/22/21 14:02> Subjective Date/time seen: 10/22/21 13:50 <Linda J. Bishop, PA-C - Last Filed: 10/22/21 14:02> Interval history: Date of service: 10/21/2021 Jayde Chambersson is a 71-year-old female with a history of DVT, fibromyalgia, anxiety, hiatal hernia s/p Rajeev fundoplication on 10/07/2021 who is seen
[2021-10-22 14:00] VITALS: BP 121/74; PULSE 52; RESP 18; TEMP 37.1; O2SAT 96
[2021-10-22] MEDS: HYDROCORTISONE SODIUM SUCCINATE 100 MG/2 ML VIAL IV PUSH ×2 (14:33→21:12)
[2021-10-22 23:10] VITALS: BP 133/77; PULSE 65; RESP 18; TEMP 36.4; O2SAT 95
[2021-10-23] MEDS: HYDROCORTISONE SODIUM SUCCINATE 100 MG/2 ML VIAL IV PUSH (05:24)
[2021-10-23 06:00] VITALS: BP 152/84; PULSE 53; RESP 16; TEMP 36.4; O2SAT 97
[2021-10-23 06:08] LABS: Hematocrit 32.3 % (37.0-47.0); Hemoglobin 10.6 g/dL (12.0-15.0); Mean Corpuscular HGB Conc 32.8 g/dl (32-36); Mean Corpuscular Hemoglobin 31.3 pg (26-34); Mean Corpuscular Volume 95.3 fl (80-100); Mean Platelet Volume 11.5 fl (7.4-10.4); Platelet Count Result 238 k/mm3 (150-375); Red Blood Count 3.39 M/mm3 (4.2-5.4); Red Cell Distribution Width 14.8 % (11.5-14.5); White Blood Count 4.9 K/mm3 (4.5-10.0)
[2021-10-23 06:28] LABS: Anion Gap 3 mmol/L (8-16); Blood Urea Nitrogen 21 mg/dL (7-17); Calcium 7.7 mg/dL (8.4-10.2); Carbon Dioxide 27 mmol/L (22-30); Chloride 106 mmol/L (98-107); Estimated CRCL calculation 67 ml/min; Estimated Glomerular Filt Rate > 60; Glucose 123 mg/dL (65-110); Potassium 3.4 mmol/L (3.4-5.0); Sodium 136 mmol/L (137-145)
[2021-10-23] MEDS: PANTOPRAZOLE 40 MG TABLET PO (08:26)
[2021-10-23] MEDS: DULoxetine HCL 60 MG CAPSULE.DR PO (08:26)
[2021-10-23] MEDS: ENOXAPARIN 40 MG/0.4 ML SYRINGE SUB-Q (08:26)
--- NOTE | 2021-10-23 08:54 | WPDPN ---
Progress Note: A&P Assessment and Plan (1) History of Rajeev fundoplication: Code(s): Z98.890 - Other specified postprocedural states Status: Acute Plan Progress Note: A&P Assessment and Plan (1) Nausea & vomiting: ?Qualifiers: ?Vomiting type:?unspecified? Qualified Code(s):?R11.2 - Nausea with vomiting, unspecified ?Code(s): R11.2 - Nausea with vomiting, unspecified ?Status:?Acute ?Assessment and Plan: Patient presented with nausea and vomiting, inability to tolerate oral intake Suspect secondary to narrowing of distal esophagus secondary to fundoplication Upper GI esophagram revealed abnormal narrowing of the distal esophagus with retained debrided contrast of the mid and distal esophagus consistent with obstruction Antiemetics available as needed Continue IV steroids per General surgery (2) History of Rajeev fundoplication: ?Code(s): Z98.890 - Other specified postprocedural states ?Status:?Acute ?Assessment and Plan: Patient underwent Rajeev fundoplication on 10/07/2021 for repair of paraesophageal hiatal hernia with intrathoracic stomach Tolerated procedure well Per General surgery, fundoplication appears intact based on imaging (3) Epigastric abdominal pain: ?Code(s): R10.13 - Epigastric pain ?Status:?Acute ?Assessment and Plan: Resolved. Supportive care Appreciate general surgery consultation (4) GERD (gastroesophageal reflux disease): ?Qualifiers: ?Esophagitis presence:?with esophagitis??Esophagitis bleeding:?without hemorrhage? Qualified Code(s):?K21.00 - Gastro-esophageal reflux disease with esophagitis, without bleeding ?Code(s): K21.9 - Gastro-esophageal reflux disease without esophagitis ?Status:?Chronic ?Assessment and Plan: No acute issues Continue pantoprazole (5) Dysphagia: ?Qualifiers: ?Dysphagia type:?unspecified? Qualified Code(s):?R13.10 - Dysphagia, unspecified ?Code(s): R13.10 - Dysphagia, unspecified ?Status:?Acute ?Assessment and Plan: Likely secondary to distal esophageal narrowing No further issues and patient is tolerating oral intake ? (6) Anemia: ?Code(s): D64.9 - Anemia, unspecified ?Status:?Acute ?Assessment and Plan: H&H is stable on review of prior labs Continue to monitor Time Spent With Patient Time with patient: 25 - 35 minutes Subjective Date/time seen: 10/23/21 08:54 Interval history: patient has no complaints today she was able to tolerate her meals. Patient was educated surgery proper diet and nutrition. Patient able to tolerate all meals , slept well and ambulate at baseline. Patient denies SOB, CP, palpitation, extremity numbness, lightheadness, dizziness, constipation, diarrhea, or chills or fever. It appears that patient may possibly discharge tomorrow. Review of Systems Review of Systems: All systems reviewed & are unremarkable except as noted in HPI and below Exam Narrative: General: Pleasant, no obvious distress noted HEENT: PERRLA, Mucous Membranes Moist and [place], Nares Patent, Sclera Clear Neck: JVD, Supple Pulmonary: Clear to Auscultation, Normal Air Movement Cardiovascular: No Murmurs, Gallops, or Rubs, Regular Rhythm, Regular Rate Abdominal: Abdomen Soft, Non-Distended, Normal Bowel Sounds Extremities: Normal Pulses Integumentary: 6 incision to the abdominal area clean dry and intact no obvious infection noted Neurological: Normal Gait, Normal Speech Psychological: Mental Status NL, Mood NL Objective Data Vital Signs Vital Signs: Vital Signs - 24 hr 10/22/21 09:07 10/22/21 14:00 10/22/21 20:00 Temperature 98.8 F Pulse Rate 52 L Respiratory Rate 18 Blood Pressure 121/74 Pulse Oximetry 96 Oxygen Delivery Room Air Room Air 10/22/21 23:10 10/23/21 06:00 Temperature 97.6 F 97.6 F Pulse Rate 65 53 L Respiratory Rate 18 16 Blood Pressure 133/77 152/84 H Pulse Ox
--- NOTE | 2021-10-23 11:16 | PM.PNGS ---
Progress Note: A&P Assessment and Plan (1) Nausea & vomiting: Qualifiers: Vomiting type: unspecified Qualified Code(s): R11.2 - Nausea with vomiting, unspecified Code(s): R11.2 - Nausea with vomiting, unspecified Status: Acute Assessment and Plan: Tolerating liquids, advancing to soft diet today, discussed watching diet very closely and staying on full liquids if dysphagia returns. Decrease hydrocortisone to 50mg q8h Possibly home tomorrow (2) History of Rajeev fundoplication: Code(s): Z98.890 - Other specified postprocedural states Status: Acute Assessment and Plan: Doing well. See above (3) Anemia: Code(s): D64.9 - Anemia, unspecified Status: Acute Assessment and Plan: stable and improving Subjective Subjective Date/Time Seen: 10/23/21 11:16 Interval history: Tolerating full liquids. No nausea, vomiting, or regurgitation. Pain controlled. Exam GI: Inspection: incision (intact with glue) GI Palp: Yes Soft to palpation, No Tenderness to palpation present (GI) and No Guarding due to palpation present (GI) Objective Data Vital Signs Vital Signs: Vital Signs - 24 hr 10/22/21 14:00 10/22/21 20:00 10/22/21 23:10 Temperature 37.1 C 36.4 C Pulse Rate 52 L 65 Respiratory Rate 18 18 Blood Pressure 121/74 133/77 Pulse Oximetry 96 95 Oxygen Delivery Room Air 10/23/21 06:00 Temperature 36.4 C Pulse Rate 53 L Respiratory Rate 16 Blood Pressure 152/84 H Pulse Oximetry 97 Oxygen Delivery Intake/Output Intake/Output: Intake & Output 10/20/21 10/21/21 10/22/21 10/23/21 23:59 23:59 23:59 23:59 Intake Total 1999 2840 1540 300 Output Total 203 670 1722 500 Balance 1100 1940 40 -200 Meds/Results Medications: Active Medications Generic Name Dose Route Start Last Admin Trade Name Freq PRN Reason Stop Dose Admin Acetaminophen 650 mg 10/22/21 12:45 Acetaminophen 325 Mg Tablet PO Q6H PRN Mild Pain (1-3) or Fever Duloxetine HCl 60 mg 10/20/21 09:00 10/23/21 08:26 Duloxetine Hcl 60 Mg Capsule.Dr PO 60 mg QAM MARCEL Administration Enoxaparin Sodium 40 mg 10/20/21 09:00 10/23/21 08:26 Enoxaparin 40 Mg/0.4 Ml Syringe SUB-Q 40 mg DAILY [facility] Administration Fentanyl Citrate 25 mcg 10/19/21 11:20 Fentanyl Citrate Inj (*Crx) 100 Mcg/2 Ml Vial IV PUSH Q2H PRN Pain Rated 7-10 Hydrocortisone Sodium Succinate 50 mg 10/23/21 14:00 Hydrocortisone Sodium Succinate 100 Mg/2 Ml Vial IV PUSH Q8HR [facility] Ibuprofen 600 mg 10/22/21 12:45 Ibuprofen 600 Mg Tablet PO Q6H PRN Pain Rated 4-6 Pantoprazole Sodium 40 mg 10/23/21 09:00 10/23/21 08:26 Pantoprazole 40 Mg Tablet PO 40 mg QAM MARCEL Administration Trazodone HCl 50 mg 10/23/21 11:15 Trazodone Hcl 50 Mg Tablet PO HS PRN Insomnia Radiology Results: ITS Impressions Chest X-Ray 10/19/21 06:44 IMPRESSION: 1. Mild atelectasis in the lower lung zones. 2. Mass in the posterior mediastinum, likely surgical changes from hiatal hernia repair. Consider an upper gastrointestinal series. Abdomen/Pelvis CT 10/19/21 08:44 IMPRESSION: 1. Changes of recent fundoplication. Fluid around the distal esophagus conforming to the area of the previously seen hernia sac. 2. Retained food in the esophagus. 3. Small pleural effusions. Upper GI Series 10/19/21 11:21 IMPRESSION: 1. Abnormal narrowing of the distal esophagus with retained debris and contrast in the mid and distal esophagus, consistent with obstruction. Labs Labs: Laboratory Results - last 24 hr 10/23/21 10/23/21 05:49 05:49 WBC 4.9 RBC 3.39 L Hgb 10.6 L Hct 32.3 L MCV 95.3 MCH 31.3 MCHC 32.8 RDW 14.8 H Plt Count 238 MPV 11.5 H Sodium 136 L Potassium 3.4 Chloride 106 Carbon Dioxide 27 Anion Gap 3 L BUN 21 H Creatinine 0.60 L Estim Creat Clear Calc
[2021-10-23 13:57] VITALS: BP 104/61; PULSE 66; RESP 17; TEMP 36.1; O2SAT 97
[2021-10-23] MEDS: HYDROCORTISONE SODIUM SUCCINATE 100 MG/2 ML VIAL 50 MG IV PUSH ×2 (16:17→20:49)
[2021-10-23 22:00] VITALS: BP 127/82; PULSE 58; RESP 16; TEMP 37.1; O2SAT 98
[2021-10-23 23:51] VITALS: O2SAT 98
[2021-10-24] MEDS: HYDROCORTISONE SODIUM SUCCINATE 100 MG/2 ML VIAL 50 MG IV PUSH (05:34)
[2021-10-24 06:00] VITALS: BP 140/75; PULSE 54; RESP 16; TEMP 36.6; O2SAT 95
[2021-10-24 06:30] LABS: Hematocrit 32.5 % (37.0-47.0); Hemoglobin 10.5 g/dL (12.0-15.0); Mean Corpuscular HGB Conc 32.3 g/dl (32-36); Mean Corpuscular Volume 92.9 fl (80-100); Mean Platelet Volume 11.5 fl (7.4-10.4); Platelet Count Result 220 k/mm3 (150-375); Red Cell Distribution Width 14.6 % (11.5-14.5); White Blood Count 4.4 K/mm3 (4.5-10.0)
[2021-10-24 06:41] LABS: Anion Gap 1 mmol/L (8-16); Blood Urea Nitrogen 17 mg/dL (7-17); Calcium 7.6 mg/dL (8.4-10.2); Carbon Dioxide 28 mmol/L (22-30); Chloride 106 mmol/L (98-107); Estimated CRCL calculation 67 ml/min; Estimated Glomerular Filt Rate > 60; Glucose 115 mg/dL (65-110); Sodium 135 mmol/L (137-145)
[2021-10-24 08:00] VITALS: PULSE 54; RESP 16; O2SAT 95
[2021-10-24] MEDS: DULoxetine HCL 60 MG CAPSULE.DR PO (10:17)
[2021-10-24] MEDS: ENOXAPARIN 40 MG/0.4 ML SYRINGE SUB-Q (10:17)
[2021-10-24] MEDS: POTASSIUM CHLORIDE 20 MEQ TABLET 40 MEQ PO (10:18)
[2021-10-24] MEDS: PANTOPRAZOLE 40 MG TABLET PO (10:18)
[2021-10-24 14:00] VITALS: BP 134/92; PULSE 62; RESP 16; TEMP 36.8; O2SAT 97
--- NOTE | 2021-10-24 14:07 | PM.PNGS ---
Progress Note: A&P Assessment and Plan (1) Nausea & vomiting: Qualifiers: Vomiting type: unspecified Qualified Code(s): R11.2 - Nausea with vomiting, unspecified Code(s): R11.2 - Nausea with vomiting, unspecified Status: Acute Assessment and Plan: OK to discharge today Continue soft, bite sized foods Follow up with Dr. Ayala as scheduled (2) History of Rajeev fundoplication: Code(s): Z98.890 - Other specified postprocedural states Status: Acute Assessment and Plan: Doing well. See above (3) Anemia: Code(s): D64.9 - Anemia, unspecified Status: Acute Assessment and Plan: stable and improving Subjective Subjective Date/Time Seen: 10/24/21 14:07 Interval history: Tolerating diet. No dysphagia or regurgitation. Exam GI: Inspection: incision (intact) GI Palp: Yes Soft to palpation, No Tenderness to palpation present (GI) and No Guarding due to palpation present (GI) Objective Data Vital Signs Vital Signs: Vital Signs - 24 hr 10/23/21 22:00 10/23/21 23:51 10/24/21 06:00 Temperature 37.1 C 36.6 C Pulse Rate 58 L 54 L Respiratory Rate 16 16 Blood Pressure 127/82 140/75 Pulse Oximetry 98 98 95 Oxygen Delivery Room Air 10/24/21 08:00 Temperature Pulse Rate 54 L Respiratory Rate 16 Blood Pressure Pulse Oximetry 95 Oxygen Delivery Room Air Intake/Output Intake/Output: Intake & Output 10/21/21 10/22/21 10/23/21 10/24/21 23:59 23:59 23:59 23:59 Intake Total 2840 1540 1140 680 Output Total 900 1500 1100 1200 Balance 1940 40 40 -520 Meds/Results Medications: Active Medications Generic Name Dose Route Start Last Admin Trade Name Freq PRN Reason Stop Dose Admin Acetaminophen 650 mg 10/22/21 12:45 Acetaminophen 325 Mg Tablet PO Q6H PRN Mild Pain (1-3) or Fever Duloxetine HCl 60 mg 10/20/21 09:00 10/24/21 10:17 Duloxetine Hcl 60 Mg Capsule. PO 60 mg QAM MARCEL Administration Enoxaparin Sodium 40 mg 10/20/21 09:00 10/24/21 10:17 Enoxaparin 40 Mg/0.4 Ml Syringe SUB-Q 40 mg DAILY [facility]EL Administration Fentanyl Citrate 25 mcg 10/19/21 11:20 Fentanyl Citrate Inj (*Crx) 100 Mcg/2 Ml Vial IV PUSH Q2H PRN Pain Rated 7-10 Hydrocortisone Sodium Succinate 50 mg 10/23/21 14:00 10/24/21 05:34 Hydrocortisone Sodium Succinate 100 Mg/2 Ml Vial IV PUSH 50 mg Q8HR MARCEL Administration Ibuprofen 600 mg 10/22/21 12:45 Ibuprofen 600 Mg Tablet PO Q6H PRN Pain Rated 4-6 Pantoprazole Sodium 40 mg 10/23/21 09:00 10/24/21 10:18 Pantoprazole 40 Mg Tablet PO 40 mg QAM MARCEL Administration Trazodone HCl 50 mg 10/23/21 11:15 Trazodone Hcl 50 Mg Tablet PO HS PRN Insomnia Radiology Results: ITS Impressions Chest X-Ray 10/19/21 06:44 IMPRESSION: 1. Mild atelectasis in the lower lung zones. 2. Mass in the posterior mediastinum, likely surgical changes from hiatal hernia repair. Consider an upper gastrointestinal series. Abdomen/Pelvis CT 10/19/21 08:44 IMPRESSION: 1. Changes of recent fundoplication. Fluid around the distal esophagus conforming to the area of the previously seen hernia sac. 2. Retained food in the esophagus. 3. Small pleural effusions. Upper GI Series 10/19/21 11:21 IMPRESSION: 1. Abnormal narrowing of the distal esophagus with retained debris and contrast in the mid and distal esophagus, consistent with obstruction. Labs Labs: Laboratory Results - last 24 hr 10/24/21 10/24/21 06:18 06:18 WBC 4.4 L RBC 3.50 L Hgb 10.5 L Hct 32.5 L MCV 92.9 MCH 30.0 MCHC 32.3 RDW 14.6 H Plt Count 220 MPV 11.5 H Sodium 135 L Potassium 3.0 L Chloride 106 Carbon Dioxide 28 Anion Gap 1 L BUN 17 Creatinine 0.60 L Estim Creat Clear Calc 67 Estimated GFR > 60 Glucose 115 H Calcium 7.6 L Quality VTE Prophylaxis VTE prophylaxis: ph
--- NOTE | 2021-10-24 14:47 | PM.DS ---
DS: Admitting Diagnosis Discharge Date 10/24/2021 Admitting Diagnosis Nausea and vomiting DS: Discharge Diagnosis Discharge Diagnosis (1) Nausea & vomiting: Qualifiers: Vomiting type: unspecified Qualified Code(s): R11.2 - Nausea with vomiting, unspecified Code(s): R11.2 - Nausea with vomiting, unspecified Status: Resolved Assessment and Plan: Resolved. Patient presented with nausea and vomiting, inability to tolerate oral intake Suspect secondary to narrowing of distal esophagus secondary to fundoplication Upper GI esophagram revealed abnormal narrowing of the distal esophagus with retained debrided contrast of the mid and distal esophagus consistent with obstruction She was seen in consultation by General surgery Received IV steroids during admission Diet slowly advanced. Patient able to tolerate soft, bite size diet which will be continued Outpatient follow-up with Dr. Ayala, general surgery. (2) History of Rajeev fundoplication: Code(s): Z98.890 - Other specified postprocedural states Status: Acute Assessment and Plan: Patient underwent Rajeev fundoplication on 10/07/2021 for repair of paraesophageal hiatal hernia with intrathoracic stomach Tolerated procedure well Plan as above (3) Epigastric abdominal pain: Code(s): R10.13 - Epigastric pain Status: Resolved Assessment and Plan: Resolved. Supportive care provided See above (4) GERD (gastroesophageal reflux disease): Qualifiers: Esophagitis presence: with esophagitis Esophagitis bleeding: without hemorrhage Qualified Code(s): K21.00 - Gastro-esophageal reflux disease with esophagitis, without bleeding Code(s): K21.9 - Gastro-esophageal reflux disease without esophagitis Status: Chronic Assessment and Plan: No acute issues Pantoprazole 40 mg daily (5) Dysphagia: Qualifiers: Dysphagia type: unspecified Qualified Code(s): R13.10 - Dysphagia, unspecified Code(s): R13.10 - Dysphagia, unspecified Status: Resolved Assessment and Plan: Resolved. Likely secondary to distal esophageal narrowing No further issues and patient able to tolerate oral intake (6) Anemia: Code(s): D64.9 - Anemia, unspecified Status: Acute Assessment and Plan: H&H remained stable on review of prior labs DS: Summary Hospital Course Hospital Course: Date of admission: 10/19/2021 Date of discharge: 10/24/2021 Jayde Boateng is a 71-year-old female with a history of DVT, fibromyalgia, anxiety, hiatal hernia s/p Rajeev fundoplication on 10/07/2021 who presented to the emergency department on 10/18/2021 with complaints of vomiting and inability to keep down food or liquids. On presentation to the ED, CT of the abdomen/pelvis showed retained food in the esophagus with fluid around the distal esophagus. She was admitted to the hospitalist service for further evaluation management and was seen in consultation by General surgery. Please see above for further details. She had symptomatic improvement following IV steroids and diet was slowly advanced. She will continue a soft, bite size diet. Follow-up with General surgery as an outpatient. She was feeling back to her usual state of health and was eager for discharge home. Given overall improvement, she was determined to no longer require inpatient care. General surgery in agreement with plans for discharge. Discussed with the patient worrisome signs and symptoms for which to return and she was educated on her medications. She was discharged in hemodynamically stable condition on 10/24/2021. Status at Discharge Functional status at discharge: independent ambulation Overall status at discharge: patient is back to baseline Time Spent with Patient Time attestation: Total time spent providing and/or coordinating discharge services: 40 minutes Time spent: Manan
== END 2021-10-24 15:20 | disposition home or self-care (01) | DRG 395 ==
LOC: ANHED 10-19 00:38 → ANH3MEDSUR 10-19 01:51
PROVIDERS: Nurse Practitioner; Physician Assistant; Surgery; Admitting Provider Internal Medicine; Emergency Provider Emergency Medicine; PCP Internal Medicine; Visit Provider Internal Medicine
DX: K91.89 Other postprocedural complications and disorders of digestive system (principal); K22.2 Esophageal obstruction; R11.2 Nausea with vomiting, unspecified; Z98.890 Other specified postprocedural states; K21.9 Gastro-esophageal reflux disease without esophagitis; R13.10 Dysphagia, unspecified; M79.7 Fibromyalgia; M81.0 Age-related osteoporosis without current pathological fracture; Z86.718 Personal history of other venous thrombosis and embolism; D64.9 Anemia, unspecified; F41.9 Anxiety disorder, unspecified
CPT/HCPCS: 36415; 71046; 74176; 74240; 80048; 80053; 81001; 83690; 84484; 85025; 85027; 93005; 96361; 96365; 96372; 96375; 96376; 99285; A9270; C9113; G0378; J1650; J1720; J1741; J2405; J7120

== ENCOUNTER 2021-12-15 09:53 | Outpatient (CLI) | payer MEDICARE, SELFPAY ==
[2021-12-15 11:57] LABS: Basophils Percent Auto 0.2 % (0.2-1.2); Eosinophils Absolute Auto 0.2 K/mm3 (0-0.3); Eosinophils Percent Auto 4.6 % (0-4.4); Hematocrit 40.7 % (37.0-47.0); Hemoglobin 12.8 g/dL (12.0-15.0); Immature Granulocyte Absolute 0.01 K/mm3 (0.00-0.031); Immature Granulocyte Percent A 0.2 % (0-0.5); Lymphocytes Absolute Auto 1.82 K/mm3 (0.9-3.2); Lymphocytes Percent Auto 43.6 % (18.3-44.2); Mean Corpuscular HGB Conc 31.4 g/dl (32-36); Mean Corpuscular Hemoglobin 29.6 pg (26-34); Mean Corpuscular Volume 94.2 fl (80-100); Monocytes Absolute Auto 0.4 K/mm3 (0.1-0.6); Monocytes Percent Auto 10.3 % (2.6-8.5); Neutrophils Absolute Auto 1.7 K/mm3 (1.3-6.7); Neutrophils Percent Auto 41.1 % (45.5-73.1); Platelet Count Result 215 k/mm3 (150-375); Red Blood Count 4.32 M/mm3 (4.2-5.4); Red Cell Distribution Width 14.4 % (11.5-14.5); White Blood Count 4.2 K/mm3 (4.5-10.0)
[2021-12-15 12:07] LABS: Alanine Aminotransferase 15 U/L (6-35); Albumin Level 4.5 g/dL (3.5-5.1); Alkaline Phosphatase 88 U/L (38-126); Anion Gap 5 mmol/L (8-16); Aspartate Amino Transferase 47 U/L (14-36); Bilirubin,Total 0.5 mg/dL (0.2-1.3); Blood Urea Nitrogen 19 mg/dL (7-17); Calcium 9.4 mg/dL (8.4-10.2); Carbon Dioxide 31 mmol/L (22-30); Chloride 104 mmol/L (98-107); Cholesterol 167 mg/dL (0-200); Estimated Glomerular Filt Rate > 60; Glucose 103 mg/dL (65-110); HDL Direct 61 mg/dL; Potassium 4.2 mmol/L (3.4-5.0); Sodium 140 mmol/L (137-145); Triglycerides 92 mg/dL (<150)
[2021-12-15 12:18] LABS: LDL Cholesterol Direct 66 mg/dL
[2021-12-15 13:32] LABS: Vitamin D 25 Hydroxy > 126.0 ng/mL
== END 2021-12-15 09:54 | disposition home or self-care (01) ==
LOC: ANHGOSHLAB 09:54
PROVIDERS: PCP Internal Medicine; Visit Provider Nurse Practitioner
DX: D64.9 Anemia, unspecified (principal); Z68.26 Body mass index [BMI] 26.0-26.9, adult
CPT/HCPCS: 36415; 80053; 80061; 82306; 85025

== ENCOUNTER 2022-01-19 02:05 | Day surgery (SDC) | payer MEDICARE, SELFPAY ==
[2022-01-10 13:08] VITALS: BMI 26.3
[2022-01-19 11:00] VITALS: BP 135/85; PULSE 70; RESP 20; TEMP 36.8; O2SAT 99; BMI 26.4
[2022-01-19] MEDS: LACTATED RINGERS 1,000 ML 150 ML IV CONT (11:18)
--- NOTE | 2022-01-19 11:23 | WPDANESEPPF ---
Anes - Initial Pre Proc Eval Procedure: Operation Date: 01/19/22 13:00 Proposed Procedures p Colonoscopy - Jesus Alberto Duque MD Date/Time: 01/19/22 11:23 Surgeon: Jesus Alberto Duque MD Pre Op Diagnosis: anemia Patient Data Age: 71 Gender: F Height: 1.6 m Weight: 67.6 kg Last Vital Signs Temp 98.2 F 01/19/22 11:00 Pulse 70 01/19/22 11:00 Resp 20 01/19/22 11:00 BP 135/85 01/19/22 11:00 Pulse Ox 99 01/19/22 11:00 O2 Del Method Room Air 01/19/22 11:00 Allergies Allergy/AdvReac Type Severity Reaction Status Date / Time Penicillins Allergy Unknown red knot Verified 01/19/22 10:59 at injection site Home Medications Medication Instructions Recorded Confirmed Type cetirizine 10 mg tablet (Zyrtec) 5 mg PO QAM 05/14/19 01/10/22 History multivitamin 1 tablet PO DAILY 05/14/19 01/10/22 History ascorbic acid (vitamin C) 500 mg 500 mg PO QAM 09/28/21 01/10/22 History capsule cholecalciferol (vitamin D3) 125 125 mcg PO QAM 09/28/21 01/10/22 History mcg (5,000 unit) capsule naproxen sodium 220 mg tablet 220 mg PO DAILY 12/15/21 01/10/22 History (Aleve) duloxetine 60 mg capsule,delayed See Rx Instructions .Route 01/04/22 01/10/22 Rx release .COMPLEX #90 caps Patient hx anesthesia problems: none Family hx anesthesia problems: none Results Review: All pre-operative results and documents have been reviewed as part of the pre-operative evaluation. [facility] Past Medical History Medical History Anxiety Fibromyalgia History of DVT (deep vein thrombosis) Right leg DVT Seasonal allergies Torn rotator cuff Right Vertigo Surgical History Surgical History H/O hernia repair (~09/2021) History of back surgery Cement put in back. 2018 History of cataract surgery History of Rajeev fundoplication repair paraesophageal hiatal hernia with intrathoracic stomach and Rajeev fundoplication 10/07/2021 History of partial hysterectomy History of tubal ligation Family History Family History Mother Family history of Alzheimer's disease Family history of malignant neoplasm of ovary Father Patient's father is Epilepsy Meningitis Other Family history of arthritis Family history of malignant neoplasm Social History Social History Social History: Caffeine-hot tea Smoking status: Former smoker Tobacco type: cigarettes Second hand tobacco smoke exposure: No Smoking end date: 05/29/1966 Additional smoking assessment comments: 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 Alcohol intake: current Alcohol use details: seldom drink Substance use: never Substance use type: does not use Living arrangements: with family Additional living arrangements comments: [facility] Spiritual care concerns: No Anes - Eval Final PreProcedure Day of Procedure 01/19/22 11:23 Patient weight: normal Heart: regular rate and rhythm Lungs: clear to auscultation Airway: Mallampati scale class II Neurological: alert and oriented Last oral intake: >/= 8 hours ASA classification: III Emergent: no Anesthetic plan: proceed Anesthesia type and monitoring: general GIVS and standard monitoring Results Review: All pre-operative results and documents have been reviewed as part of the pre-operative evaluation. Informed Consent: The patient's anesthetic plan and its attendant risks and benefits were discussed with the patient/family/POA. Questions were solicited and answers provided to the satisfaction of the patient/family/POA.
--- NOTE | 2022-01-19 12:26 | PM.HPGS ---
History of Present Illness History of Present Illness Consent: Risks, benefits, and alternatives have been discussed and questions answered. Patient agrees to proceed with procedure. Chief complaint: anemia Narrative: Jayde Boateng is a 71 year old female with anemia round time of hiatal hernia repaired (h/h back up to normal) and denies overt gib but last colonoscopy more than 10 years ago Review of Systems Constitutional: Constitutional: Denies headache(s) and Denies weakness Eyes: Eyes: Denies blurry vision ENT: Reports Normal hearing present, Denies headache(s) and Denies neck pain Cardiovascular: Cardiovascular: Denies chest pain and Denies dyspnea Respiratory: Respiratory: Denies dyspnea Gastrointestinal: Gastrointestinal: Reports no additional gastrointestinal complaints Genitourinary: Genitourinary: Denies dysuria Musculoskeletal: Musculoskeletal: Denies neck pain Integumentary/Breasts: Skin/Breast: Denies dry skin Neurologic: Reports Normal hearing present, Denies headache(s) and Denies weakness Psychiatric: Psychiatric: Denies anxiety Endocrine: Endocrine: Denies change in body appearance Hematologic/Lymphatic: Hematologic/Lymphatic: Denies easy bleeding Allergic/Immunologic: Allergic/Immunologic: Denies urticaria PMFSH Past Medical History Medical History (Updated 01/19/22 @ 12:27 by Jesus Alberto Duque MD) Anxiety Colon cancer screening Fibromyalgia History of DVT (deep vein thrombosis) Right leg DVT Seasonal allergies Torn rotator cuff Right Vertigo Surgical History Surgical History H/O hernia repair (~09/2021) History of back surgery Cement put in back. 2018 History of cataract surgery History of Rajeev fundoplication repair paraesophageal hiatal hernia with intrathoracic stomach and Rajeev fundoplication 10/07/2021 History of partial hysterectomy History of tubal ligation Family History Family History Mother Family history of Alzheimer's disease Family history of malignant neoplasm of ovary Father Patient's father is Epilepsy Meningitis Other Family history of arthritis Family history of malignant neoplasm Social History Social History Social History: Caffeine-hot tea Smoking status: Former smoker Tobacco type: cigarettes Second hand tobacco smoke exposure: No Smoking end date: 05/29/1966 Additional smoking assessment comments: 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 Alcohol intake: current Alcohol use details: seldom drink Substance use: never Substance use type: does not use Living arrangements: with family Additional living arrangements comments: [facility] Spiritual care concerns: No Meds Home Medications and Allergies Home Medications Medication Instructions Recorded Confirmed Type cetirizine 10 mg tablet (Zyrtec) 5 mg PO QAM 05/14/19 01/10/22 History multivitamin 1 tablet PO DAILY 05/14/19 01/10/22 History ascorbic acid (vitamin C) 500 mg 500 mg PO QAM 09/28/21 01/10/22 History capsule cholecalciferol (vitamin D3) 125 125 mcg PO QAM 09/28/21 01/10/22 History mcg (5,000 unit) capsule naproxen sodium 220 mg tablet 220 mg PO DAILY 12/15/21 01/10/22 History (Aleve) duloxetine 60 mg capsule,delayed See Rx Instructions .Route 01/04/22 01/10/22 Rx release .COMPLEX #90 caps Allergies Allergy/AdvReac Type Severity Reaction Status Date / Time Penicillins Allergy Unknown red knot Verified 01/19/22 10:59 at injection site Vital Signs Vital Signs - 24 hr 01/19/22 11:00 Temperature 98.2 F Pulse Rate 70 Respiratory Rate 20 Blood Pressure 135/85 Pulse Oximetry 99 Oxygen Delivery Room Air Exam Const: General: comfortable and no acute distress HENMT: General nose ex
[2022-01-19 12:47] VITALS: BP 91/55; PULSE 60; RESP 17; O2SAT 99
[2022-01-19 12:57] VITALS: BP 117/65; PULSE 54; RESP 20; O2SAT 98
[2022-01-19 13:07] VITALS: BP 132/87; PULSE 61; RESP 22; O2SAT 99
== END 2022-01-19 13:18 | disposition home or self-care (01) ==
PROVIDERS: PCP Internal Medicine; Visit Provider Internal Medicine Gastroenterology
PROC: 0DJD8ZZ Inspection of Lower Intestinal Tract, Via Natural or Artificial Opening Endoscopic (ICD-10-PCS; CPT 45378; principal; 2022-01-19 13:00)
DX: Z12.11 Encounter for screening for malignant neoplasm of colon (principal); D64.9 Anemia, unspecified; K44.9 Diaphragmatic hernia without obstruction or gangrene; F41.9 Anxiety disorder, unspecified; M79.7 Fibromyalgia; Z86.718 Personal history of other venous thrombosis and embolism; Z87.891 Personal history of nicotine dependence
CPT/HCPCS: G0121; J2001; J2704; J7120

== ENCOUNTER 2022-08-24 09:57 | Outpatient (CLI) | payer MEDICARE, SELFPAY ==
--- NOTE | ~2022-08-24 | XR_ITS ---
XR UGIAC w barium swallow DATE: 08/24/2022 10:42 INDICATION: Difficulty swallowing and pain, lower chest TECHNIQUE: Air-contrast upper gastrointestinal series 1.9 minutes fluoroscopy time DAP: 20 4.017 Gycm2 COMPARISON: None FINDINGS: There is postoperative change from hiatal hernia repair. There is moderate dilatation of th e thoracic esophagus and retention of contrast material within the esophagus. Otherwise no stricture, mucosal fold thickening, erosion, ulceration or intraluminal mass lesion or c onsolidation, stomach or duodenum. Small diverticulum of July 28 duodenum. The proximal small bowel m ucosal pattern appears normal. Diffuse osteopenia. Vertebroplasty at a lower thoracic vertebral body fracture. IMPRESSION: Status post hiatal hernia repair. There is moderate esophageal dilatation and retention o f contrast material in the esophagus Reviewed, dictated and finalized at [facility]. Reviewed, dictated and finalized at [facility]. IMPRESSION: Status post hiatal hernia repair. There is moderate esophageal dila tation and retention of contrast material in the esophagus
== END 2022-08-24 09:58 ==
LOC: MICIMG 09:59
PROVIDERS: PCP Internal Medicine; Visit Provider Surgery
DX: R31.9 Hematuria, unspecified (principal)
CPT/HCPCS: 74246

== ENCOUNTER 2022-09-23 01:38 | Day surgery (SDC) | payer MEDICARE, SELFPAY ==
[2022-09-14 11:36] VITALS: BMI 26.9
--- NOTE | 2022-09-22 12:39 | WPDANESEPPF ---
Anes - Initial Pre Proc Eval Procedure: Operation Date: 09/23/22 11:00 Proposed Procedures p Esophagogastroduodenoscopy - Jesus Alberto Duque MD Date/Time: 09/22/22 12:39 Surgeon: Jesus Alberto Duque MD Pre Op Diagnosis: epigastric pain, dysphagia Patient Data Age: 72 Gender: F Height: 1.6 m Weight: 69 kg Allergies Allergy/AdvReac Type Severity Reaction Status Date / Time Penicillins Allergy Unknown red knot Verified 09/23/22 09:34 at injection site Home Medications Medication Instructions Recorded Confirmed Type cetirizine 10 mg tablet (Zyrtec) 5 mg PO QAM 05/14/19 09/23/22 History multivitamin 1 tablet PO DAILY 05/14/19 09/23/22 History ascorbic acid (vitamin C) 500 mg 500 mg PO QAM 09/28/21 09/23/22 History capsule cholecalciferol (vitamin D3) 125 125 mcg PO QAM 09/28/21 09/23/22 History mcg (5,000 unit) capsule duloxetine 60 mg capsule,delayed See Rx Instructions .Route 02/23/22 09/23/22 Rx release .COMPLEX #90 caps Patient hx anesthesia problems: none Family hx anesthesia problems: none Results Review: All pre-operative results and documents have been reviewed as part of the pre-operative evaluation. [facility] Past Medical History Medical History Anxiety Colon cancer screening Fibromyalgia History of DVT (deep vein thrombosis) Right leg DVT Seasonal allergies Torn rotator cuff Right Vertigo Surgical History Surgical History H/O hernia repair (~09/2021) History of back surgery Cement put in back. 2018 History of cataract surgery History of Rajeev fundoplication repair paraesophageal hiatal hernia with intrathoracic stomach and Rajeev fundoplication 10/07/2021 History of partial hysterectomy History of tubal ligation Family History Family History Mother Family history of Alzheimer's disease Family history of malignant neoplasm of ovary Father Patient's father is Epilepsy Meningitis Other Family history of arthritis Family history of malignant neoplasm Social History Social History Social History: Caffeine-hot tea Smoking status: Never smoker Tobacco type: cigarettes Second hand tobacco smoke exposure: No Smoking end date: 05/29/1966 Additional smoking assessment comments: 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 Alcohol intake: never Alcohol use details: seldom drink Substance use: never Substance use type: does not use Living arrangements: with family Additional living arrangements comments: [facility] Spiritual care concerns: No Anes - Eval Final PreProcedure Day of Procedure 09/22/22 12:39 Patient weight: overweight Heart: regular rate and rhythm Lungs: clear to auscultation Airway: Mallampati scale class II Neurological: alert and oriented Last oral intake: >/= 8 hours ASA classification: III Emergent: no Anesthetic plan: proceed Anesthesia type and monitoring: general GIVS and standard monitoring Results Review: All pre-operative results and documents have been reviewed as part of the pre-operative evaluation. Informed Consent: The patient's anesthetic plan and its attendant risks and benefits were discussed with the patient/family/POA. Questions were solicited and answers provided to the satisfaction of the patient/family/POA.
[2022-09-23 09:35] VITALS: BP 128/73; PULSE 57; RESP 16; TEMP 36.6; O2SAT 97
[2022-09-23] MEDS: LACTATED RINGERS 1,000 ML 150 ML IV CONT (09:42)
--- NOTE | 2022-09-23 10:30 | WPDHPUPDATE1 ---
History and Physical Update Update Date/Time: 09/23/22 10:30 History and Physical has been reviewed, including an updated exam of the patient. There are NO changes in the patient's condition. Risks, benefits, and alternatives have been discussed and questions answered. Patient agrees to proceed with procedure.
--- NOTE | 2022-09-23 10:46 | SUR.OPER ---
Oral suction used by LEARNING COACH during procedure.
[2022-09-23 10:53] VITALS: BP 147/104; PULSE 87; RESP 18; O2SAT 97
[2022-09-23 11:03] VITALS: BP 124/73; PULSE 91; RESP 17; O2SAT 96
[2022-09-23 11:13] VITALS: BP 131/81; PULSE 66; RESP 16; O2SAT 100
== END 2022-09-23 11:20 | disposition home or self-care (01) ==
PROVIDERS: PCP Internal Medicine; Visit Provider Internal Medicine Gastroenterology
PROC: 0DJ08ZZ Inspection of Upper Intestinal Tract, Via Natural or Artificial Opening Endoscopic (ICD-10-PCS; CPT 43235; principal; 2022-09-23 11:00)
DX: R13.10 Dysphagia, unspecified (principal); K44.9 Diaphragmatic hernia without obstruction or gangrene; F41.9 Anxiety disorder, unspecified; Z86.718 Personal history of other venous thrombosis and embolism
CPT/HCPCS: 43249; C1726; J2704; J7120

== ENCOUNTER 2022-12-11 18:40 | Emergency (ER) | payer MEDICARE, SELFPAY ==
--- NOTE | ~2022-12-11 | CT_ITS ---
EXAMINATION: CT abdomen pelvis w con DATE: 12/11/2022 20:12 INDICATION: Abdominal pain radiating to the right. TECHNIQUE: Computed tomography (CT) of the abdomen and pelvis was performed with 100 mL Omnipaque 350 intravenous contrast. Automated exposure control and iterative reconstruction technique were employe d. The dose-length product was 607.91 mGy-cm. COMPARISON: CT abdomen and pelvis 10/19/2021 FINDINGS: The visualized portions of the lung bases demonstrate mild atelectasis. No pleural effusion . The heart size is normal. No pericardial effusion. There are changes of fundoplication of the stoma ch with the wrap above the diaphragm. The liver, gallbladder, spleen, adrenals, and left adrenal glan d are normal. There is a chronic 2.7 cm mass in right adrenal gland, likely an adenoma. There is maria fernanda ical thinning of the kidneys. There are cysts in left kidney measuring up to 2.4 cm. There are no dil ated loops of bowel. The appendix is normal. There is mild aortic atherosclerosis. There are no patho logically enlarged lymph nodes. There is no free intraperitoneal fluid. There is a chronic burst frac ture of T12 with changes of vertebroplasty. There is mild lumbar spondylosis. IMPRESSION: 1. Small sliding hiatal hernia with the fundoplication above the diaphragm. Reviewed, dictated and finalized at location E.
[2022-12-11 18:42] VITALS: BP 133/84; PULSE 59; RESP 16; TEMP 36.5; O2SAT 100
[2022-12-11 19:30] LABS: Eosinophils Absolute Auto 0.1 K/mm3 (0-0.3); Eosinophils Percent Auto 2.7 % (0-4.4); Hematocrit 40.4 % (37.0-47.0); Immature Granulocyte Absolute 0.01 K/mm3 (0.00-0.031); Immature Granulocyte Percent A 0.2 % (0-0.5); Lymphocytes Absolute Auto 1.97 K/mm3 (0.9-3.2); Lymphocytes Percent Auto 47.6 % (18.3-44.2); Mean Corpuscular HGB Conc 32.2 g/dl (32-36); Mean Corpuscular Hemoglobin 29.7 pg (26-34); Mean Corpuscular Volume 92.4 fl (80-100); Mean Platelet Volume 10.7 fl (7.4-10.4); Monocytes Absolute Auto 0.5 K/mm3 (0.1-0.6); Monocytes Percent Auto 11.4 % (2.6-8.5); Neutrophils Absolute Auto 1.6 K/mm3 (1.3-6.7); Neutrophils Percent Auto 38.1 % (45.5-73.1); Platelet Count Result 225 k/mm3 (150-375); Red Blood Count 4.37 M/mm3 (4.2-5.4); Red Cell Distribution Width 14.1 % (11.5-14.5); White Blood Count 4.1 K/mm3 (4.5-10.0)
[2022-12-11] MEDS: SODIUM CHLORIDE 0.9% IV 1,000 ML 999 ML IV CONT (19:31)
[2022-12-11] MEDS: ONDANSETRON INJ 4 MG/2 ML VIAL IV PUSH (19:32)
[2022-12-11] MEDS: MORPHINE SULFATE (*CRX) 4 MG/ML INJ IV PUSH (19:34)
[2022-12-11 19:35] LABS: Appearance Urine Clear (Clear); Bacteria Urine None Seen /hpf; Bilirubin Urine Negative (Negative); Blood Urine Negative (Negative); Color Urine Yellow (Yellow); Glucose Urine UA Negative (Negative); Ketones Urine Trace mg/dL (Negative); Leukocyte Esterase Ur Trace LEU/UL (Negative); Nitrate Urine Negative (Negative); Non Pathogenic Casts 0-2; Protein Urine Negative (Negative); RBC Urine 0-2 /hpf (0-2); Specific Grav Ur 1.024 (1.001-1.035); Squamous Epithelial Cell Urine None seen /hpf (Few); WBC Urine 0-5 /hpf
[2022-12-11 19:37] LABS: Add Urine Microscopic? YES
[2022-12-11 19:38] LABS: Lactic Acid Reflex 1.2 mmol/L (0.7-2.0)
[2022-12-11 19:40] LABS: Alanine Aminotransferase 19 U/L (6-35); Albumin Level 4.1 g/dL (3.5-5.1); Alkaline Phosphatase 67 U/L (38-126); Anion Gap 6 mmol/L (8-16); Aspartate Amino Transferase 23 U/L (14-36); Bilirubin,Total 0.4 mg/dL (0.2-1.3); Blood Urea Nitrogen 18 mg/dL (7-17); Calcium 8.7 mg/dL (8.4-10.2); Carbon Dioxide 28 mmol/L (22-30); Chloride 106 mmol/L (98-107); Estimated CRCL calculation 50 ml/min; Estimated Glomerular Filt Rate > 60; Glucose 102 mg/dL (65-110); Magnesium 2.1 mg/dL (1.6-2.3); Potassium 4.3 mmol/L (3.4-5.0); Sodium 140 mmol/L (137-145)
[2022-12-11 19:41] LABS: INR 1.1; Partial Thromboplastin Time 31.2 SECONDS (22.3-36.8); Prothrombin Time 14.3 Seconds (11.1-14.7)
[2022-12-11 19:44] LABS: Lipase 42 U/L (23-300)
[2022-12-11 19:47] LABS: Atypical Lymphocytes Present; Ovalocytes 1+ (NORMAL); Platelet Estimate Adequate (Adequate); Schistocytes None Seen (NORMAL)
--- NOTE | 2022-12-11 20:09 | ED.GENADULT ---
HPI - General Adult General Chief complaint: Abdominal Pain Stated complaint: RUQ ABD PAIN X4D Time Seen by Provider: 12/11/22 19:09 History of Present Illness HPI narrative: Patient is 72-year-old female who presents the emergency department with chief complaint of abdominal pain. Patient reports that 4 days ago she started having pain in the right upper quadrant that radiates to the back patient reports pain is worse with movement and improved with rest. The patient reports no prior intra-abdominal surgeries Related Data Home Medications Medication Instructions Recorded Confirmed cetirizine 10 mg tablet (Zyrtec) 5 mg PO QAM 05/14/19 11/15/22 multivitamin 1 tablet PO DAILY 05/14/19 11/15/22 ascorbic acid (vitamin C) 500 mg 500 mg PO QAM 09/28/21 11/15/22 capsule cholecalciferol (vitamin D3) 125 125 mcg PO QAM 09/28/21 11/15/22 mcg (5,000 unit) capsule Allergies Allergy/AdvReac Type Severity Reaction Status Date / Time Penicillins Allergy Unknown red knot Verified 12/11/22 19:13 at injection site Review of Systems Review of Systems: A 10 system review of systems was completed on the patient and is negative except for what is stated in the HPI. Nursing and ancillary documentation was reviewed. [facility] Past Medical History Medical History Anxiety Colon cancer screening Fibromyalgia GERD (gastroesophageal reflux disease) History of DVT (deep vein thrombosis) Right leg DVT Seasonal allergies Torn rotator cuff Right Vertigo Surgical History Surgical History History of back surgery (2018) Cement put in back. 2018 History of cataract surgery History of Rajeev fundoplication repair paraesophageal hiatal hernia with intrathoracic stomach and Rajeev fundoplication 10/07/2021 History of partial hysterectomy Still has left ovary History of tubal ligation Family History Family History Mother Alzheimer disease Ovarian cancer Father Patient's father is Epilepsy Meningitis Other Family history of arthritis Family history of malignant neoplasm Social History Social History Social History: Caffeine-hot tea Smoking status: Former smoker Tobacco type: cigarettes Second hand tobacco smoke exposure: No Smoking end date: 05/29/1966 Additional smoking assessment comments: 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 Alcohol intake: never Alcohol use details: seldom drink Substance use: never Substance use type: does not use Lack of Transportation: No Lack of Food: Never True Current Housing: I Have Housing Concerned About Future Housing: No Difficulty Paying Gas/Electric Bills: No Difficulty Paying for Meds: No Currently Unemployed: No Education: Trade/Vocational Certificate Difficulty w/ Childcare or Family Care: No Living arrangements: with family Additional living arrangements comments: [facility] Spiritual care concerns: No Exam Narrative: GENERAL: Well-appearing, well-nourished, and in no acute distress. HEAD: Normocephalic, atraumatic. EYES: PERRLA and EOMI. ENT: Nares clear, no rhinorrhea or epistaxis. Mucous membranes moist. NECK: Supple. CHEST: Clear to auscultation. No respiratory distress. HEART: Regular rate and rhythm. No murmur heard. Normal peripheral pulses. ABDOMEN: Soft, tenderness to palpation in the right upper quadrant and right lower quadrant, nondistended, normal active bowel sounds. EXTREMITIES: Normal range of motion. No edema. SKIN: Warm, dry, no rash. NEURO: No focal deficits. Alert and oriented x3. PSYCH: Normal mood and affect. Course Vital Signs Vital signs: Vital Signs Temperature 36.5 C 12/11/22 18:42 Pulse Rate
[2022-12-11 21:03] VITALS: BP 138/89; PULSE 78; RESP 15; O2SAT 98
== END 2022-12-11 21:04 | disposition home or self-care (01) ==
PROVIDERS: Emergency Provider Emergency Medicine; PCP Family Medicine Adolescent Medicine
DX: R10.84 Generalized abdominal pain (principal); M79.7 Fibromyalgia; K21.9 Gastro-esophageal reflux disease without esophagitis; Z86.718 Personal history of other venous thrombosis and embolism; Z98.49 Cataract extraction status, unspecified eye; Z90.710 Acquired absence of both cervix and uterus; Z90.721 Acquired absence of ovaries, unilateral; Z87.891 Personal history of nicotine dependence
CPT/HCPCS: 36415; 74177; 80053; 81001; 83605; 83690; 83735; 85025; 85610; 85730; 96361; 96374; 96375; 99284; J2270; J2405; J7030; Q9967

== ENCOUNTER 2023-11-08 01:05 | Day surgery (SDC) | payer MEDICARE, SELFPAY ==
[2023-11-07 14:20] VITALS: BMI 29.7
[2023-11-08 12:32] VITALS: BP 127/84; PULSE 77; RESP 16; TEMP 36.4; O2SAT 96
[2023-11-08] MEDS: LACTATED RINGERS 1,000 ML 150 ML IV CONT (12:40)
--- NOTE | 2023-11-08 13:18 | PM.HPGS ---
History of Present Illness History of Present Illness Consent: Risks, benefits, and alternatives have been discussed and questions answered. Patient agrees to proceed with procedure. Chief complaint: Dysphagia, Diaphragmatic hernia, esophageal obst. Narrative: Jayde Boateng is a 73 year old female with abdominal discomfort only after eating, had Rajeev and had EGD last year, no obvious obstruction but dilated up to 20mm- this helped with dysphagia, she wonders if may need to get stretched out again. Review of Systems Review of Systems: All systems reviewed & are unremarkable except as noted in HPI and below PMFSH Past Medical History Medical History Anxiety Colon cancer screening Fibromyalgia GERD (gastroesophageal reflux disease) History of DVT (deep vein thrombosis) Right leg DVT Seasonal allergies Torn rotator cuff Right Vertigo Surgical History Surgical History History of back surgery (2018) Cement put in back. 2018 History of cataract surgery History of Rajeev fundoplication repair paraesophageal hiatal hernia with intrathoracic stomach and Rajeev fundoplication 10/07/2021 History of partial hysterectomy Still has left ovary History of tubal ligation Family History Family History Mother Alzheimer disease Ovarian cancer Father Patient's father is Epilepsy Meningitis Other Family history of arthritis Family history of malignant neoplasm Social History Social History Social History: Caffeine-hot tea Smoking status: Former smoker Tobacco type: cigarettes Second hand tobacco smoke exposure: No Smoking end date: 05/29/1966 Additional smoking assessment comments: 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 Alcohol intake: current Drinks per week: 1 Alcohol use details: seldom drink Substance use: never Substance use type: does not use Lack of Transportation: No Lack of Food: Never True Current Housing: I Have Housing Concerned About Future Housing: No Difficulty Paying Gas/Electric Bills: No Difficulty Paying for Meds: No Currently Unemployed: No Education: Trade/Vocational Certificate Difficulty w/ Childcare or Family Care: No Living arrangements: with family Additional living arrangements comments: [facility] Spiritual care concerns: No Meds Home Medications and Allergies Home Medications Medication Instructions Recorded Confirmed Type cetirizine 10 mg tablet (Zyrtec) 5 mg PO QAM PRN Allergy Symptoms 05/14/19 11/07/23 History multivitamin 1 tablet PO DAILY 05/14/19 11/07/23 History ascorbic acid (vitamin C) 500 mg 500 mg PO QAM 09/28/21 11/07/23 History capsule cholecalciferol (vitamin D3) 125 125 mcg PO QAM 09/28/21 11/07/23 History mcg (5,000 unit) capsule acetaminophen 325 mg capsule 325 mg PO ONCE 06/28/23 11/07/23 History (Tylenol) mecobalamin (vitamin B12) 1,000 1,000 mcg PO DAILY 10/09/23 11/07/23 History mcg lozenges duloxetine 60 mg capsule,delayed See Rx Instructions .Route 11/06/23 11/07/23 Rx release .COMPLEX #90 caps Allergies Allergy/AdvReac Type Severity Reaction Status Date / Time Penicillins Allergy Unknown red knot Verified 11/08/23 12:31 at injection site Vital Signs Vital Signs - 24 hr 11/08/23 12:32 Temperature 97.6 F Pulse Rate 77 Respiratory Rate 16 Blood Pressure 127/84 Pulse Oximetry 96 Oxygen Delivery Room Air Exam Const: General: comfortable and no acute distress HENMT: Face/Nose/Sinus: Normal nares present Eyes: General: appearance normal, both eyes and all related structures Neck: Neck: no JVD Resp: Auscultation: clear to auscultation bilaterally Cardio: Rate: regular rate Rhythm: regular rhyth
--- NOTE | 2023-11-08 13:18 | WPDANESEPPF ---
Anes - Initial Pre Proc Eval Procedure: Operation Date: 11/08/23 14:00 Proposed Procedures p Esophagogastroduodenoscopy - Jesus Alberto Duque MD Date/Time: 11/08/23 13:18 Surgeon: Jesus Alberto Duque MD Pre Op Diagnosis: Dysphagia, Diaphragmatic hernia, esophageal obst. Patient Data Age: 73 Gender: F Height: 1.52 m Weight: 69.6 kg Last Vital Signs Temp 97.6 F 11/08/23 12:32 Pulse 77 11/08/23 12:32 Resp 16 11/08/23 12:32 BP 127/84 11/08/23 12:32 Pulse Ox 96 11/08/23 12:32 O2 Del Method Room Air 11/08/23 12:32 Allergies Allergy/AdvReac Type Severity Reaction Status Date / Time Penicillins Allergy Unknown red knot Verified 11/08/23 12:31 at injection site Home Medications Medication Instructions Recorded Confirmed Type cetirizine 10 mg tablet (Zyrtec) 5 mg PO QAM PRN Allergy Symptoms 05/14/19 11/07/23 History multivitamin 1 tablet PO DAILY 05/14/19 11/07/23 History ascorbic acid (vitamin C) 500 mg 500 mg PO QAM 09/28/21 11/07/23 History capsule cholecalciferol (vitamin D3) 125 125 mcg PO QAM 09/28/21 11/07/23 History mcg (5,000 unit) capsule acetaminophen 325 mg capsule 325 mg PO ONCE 06/28/23 11/07/23 History (Tylenol) mecobalamin (vitamin B12) 1,000 1,000 mcg PO DAILY 10/09/23 11/07/23 History mcg lozenges duloxetine 60 mg capsule,delayed See Rx Instructions .Route 11/06/23 11/07/23 Rx release .COMPLEX #90 caps Patient hx anesthesia problems: none Family hx anesthesia problems: none Results Review: All pre-operative results and documents have been reviewed as part of the pre-operative evaluation. [facility] Past Medical History Medical History Anxiety Colon cancer screening Fibromyalgia GERD (gastroesophageal reflux disease) History of DVT (deep vein thrombosis) Right leg DVT Seasonal allergies Torn rotator cuff Right Vertigo Surgical History Surgical History History of back surgery (2018) Cement put in back. 2018 History of cataract surgery History of Rajeev fundoplication repair paraesophageal hiatal hernia with intrathoracic stomach and Rajeev fundoplication 10/07/2021 History of partial hysterectomy Still has left ovary History of tubal ligation Family History Family History Mother Alzheimer disease Ovarian cancer Father Patient's father is Epilepsy Meningitis Other Family history of arthritis Family history of malignant neoplasm Social History Social History Social History: Caffeine-hot tea Smoking status: Former smoker Tobacco type: cigarettes Second hand tobacco smoke exposure: No Smoking end date: 05/29/1966 Additional smoking assessment comments: 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 Alcohol intake: current Drinks per week: 1 Alcohol use details: seldom drink Substance use: never Substance use type: does not use Lack of Transportation: No Lack of Food: Never True Current Housing: I Have Housing Concerned About Future Housing: No Difficulty Paying Gas/Electric Bills: No Difficulty Paying for Meds: No Currently Unemployed: No Education: Trade/Vocational Certificate Difficulty w/ Childcare or Family Care: No Living arrangements: with family Additional living arrangements comments: [facility] Spiritual care concerns: No Anes - Eval Final PreProcedure Day of Procedure 11/08/23 13:18 Patient weight: obese Heart: regular rate and rhythm Lungs: clear to auscultation Airway: Mallampati scale class II Neurological: alert and oriented Last oral intake: >/= 8 hours ASA classification: III Emergent: no Anesthetic plan: proceed Anesthesia type and monitoring: general GIVS and standard monitoring
[2023-11-08 13:40] VITALS: BP 137/87; PULSE 87; RESP 21; O2SAT 99
[2023-11-08 13:50] VITALS: BP 136/85; PULSE 79; RESP 22; O2SAT 99
[2023-11-08 14:00] VITALS: BP 141/88; PULSE 68; RESP 20; O2SAT 99
== END 2023-11-08 14:14 | disposition home or self-care (01) ==
PROVIDERS: PCP Family Medicine Adolescent Medicine; Referring Provider Surgery; Visit Provider Internal Medicine Gastroenterology
PROC: 0DJ08ZZ Inspection of Upper Intestinal Tract, Via Natural or Artificial Opening Endoscopic (ICD-10-PCS; CPT 43235; principal; 2023-11-08 14:00)
DX: K29.50 Unspecified chronic gastritis without bleeding (principal); K22.2 Esophageal obstruction; K44.9 Diaphragmatic hernia without obstruction or gangrene; F41.9 Anxiety disorder, unspecified; E66.9 Obesity, unspecified; Z68.30 Body mass index [BMI] 30.0-30.9, adult; Z98.890 Other specified postprocedural states
CPT/HCPCS: 43249; 43239; 88305; 88342; C1726; J2001; J2704; J7120

== ENCOUNTER 2024-01-09 10:37 | Outpatient (CLI) | payer MEDICARE, SELFPAY ==
--- NOTE | ~2024-01-09 | XR_ITS ---
EXAMINATION: XR knee LT 3V DATE: 01/09/2024 10:59 INDICATION: Pain in left knee. TECHNIQUE: 3 views of left knee including standing views were obtained. COMPARISON: Left tibia and fibula radiographs 06/02/2017 FINDINGS: Bone alignment is normal. No fracture. There is moderate osteoarthritis of lateral compartm ent and mild osteoarthritis of medial and patellofemoral compartments. There is a small knee joint ef fusion. There is a loose body in the knee joint posteriorly. IMPRESSION: 1. Moderate left knee osteoarthritis. 2. Small left knee joint effusion with loose body. Reviewed, dictated and finalized at location A.
== END 2024-01-09 10:38 ==
PROVIDERS: PCP Family Medicine Adolescent Medicine; Visit Provider Family Medicine Adolescent Medicine
DX: M17.12 Unilateral primary osteoarthritis, left knee (principal); M25.462 Effusion, left knee
CPT/HCPCS: 73562

== ENCOUNTER 2024-04-09 13:36 | Outpatient (CLI) | payer MEDICARE, SELFPAY ==
--- NOTE | ~2024-04-09 | XR_ITS ---
XR knee LT 3V Ordering provider: BUDDY Bueno History: . fall 3 weeks ago anterior to lateral pain . Comparison: None. FINDINGS: BONES: No acute fracture or dislocation. JOINT SPACES: Narrowing of the lateral compartment. Marginal osteophytes in the knee and patella. SOFT TISSUES: Normal. IMPRESSION: No acute osseous abnormality left knee. severe osteoarthritic changes. Reviewed, dictated and finalized at location A. ERCIAL SALES MANAGER
--- NOTE | ~2024-04-09 | XR_ITS ---
XR knee RT 3V Ordering provider: BUDDY Bueno History: . fall 3 weeks ago anterior to lateral pain . Comparison: None. FINDINGS: BONES: No acute fracture or dislocation. Healed fracture in the proximal fibula. JOINT SPACES: Narrowing of the lateral compartment. Marginal osteophytes in the knee and patella. SOFT TISSUES: Normal. IMPRESSION: No acute osseous abnormality right knee. Moderate osteoarthritic changes. Reviewed, dictated and finalized at location A. RNATIONAL ORGANIZER
== END 2024-04-09 13:37 | disposition home or self-care (01) ==
PROVIDERS: PCP Family Medicine Adolescent Medicine; Visit Provider Physician Assistant Surgical
DX: M17.0 Bilateral primary osteoarthritis of knee (principal)
CPT/HCPCS: 73562

== ENCOUNTER 2024-06-26 07:16 | Outpatient (CLI) | payer MEDICARE, SELFPAY ==
[2024-06-26 08:24] LABS: Basophils Percent Auto 0.2 % (0.2-1.2); Eosinophils Absolute Auto 0.1 K/mm3 (0-0.3); Hematocrit 31.2 % (37.0-47.0); Hemoglobin 9.1 g/dL (12.0-15.0); Lymphocytes Absolute Auto 1.74 K/mm3 (0.9-3.2); Lymphocytes Percent Auto 43.3 % (18.3-44.2); Mean Corpuscular HGB Conc 29.2 g/dl (32-36); Mean Corpuscular Hemoglobin 20.9 pg (26-34); Mean Corpuscular Volume 71.7 fl (80-100); Mean Platelet Volume 10.7 fl (7.4-10.4); Monocytes Absolute Auto 0.5 K/mm3 (0.1-0.6); Monocytes Percent Auto 11.9 % (2.6-8.5); Neutrophils Absolute Auto 1.7 K/mm3 (1.3-6.7); Neutrophils Percent Auto 41.6 % (45.5-73.1); Platelet Count Result 296 k/mm3 (150-375); Red Blood Count 4.35 M/mm3 (4.2-5.4); Red Cell Distribution Width 17.6 % (11.5-14.5)
[2024-06-26 08:38] LABS: Alanine Aminotransferase 15 U/L (6-35); Albumin Level 4.2 g/dL (3.5-5.1); Alkaline Phosphatase 75 U/L (38-126); Anion Gap 6 mmol/L (4-12); Aspartate Amino Transferase 18 U/L (14-36); Bilirubin,Total 0.3 mg/dL (0.2-1.3); Blood Urea Nitrogen 16 mg/dL (7-17); Calcium 9.6 mg/dL (8.4-10.2); Carbon Dioxide 28 mmol/L (22-30); Chloride 105 mmol/L (98-107); Cholesterol 141 mg/dL (0-200); Estimated Glomerular Filt Rate > 60; Glucose 98 mg/dL (65-110); HDL Direct 62 mg/dL; Potassium 4.3 mmol/L (3.4-5.0); Sodium 139 mmol/L (137-145); Triglycerides 97 mg/dL (<150)
[2024-06-26 08:49] LABS: LDL Cholesterol Direct 63 mg/dL
[2024-06-26 08:55] LABS: Anisocytosis 1+; Hypochromasia 1+; Platelet Estimate Adequate (Adequate)
[2024-06-26 08:56] LABS: Schistocytes None Seen; Target Cells 1+
[2024-06-26 09:16] LABS: Iron 25 ug/dL (37-170)
[2024-06-26 09:25] LABS: Percent Iron Saturation 5 % (20-50)
[2024-06-26 09:40] LABS: Hemoglobin A1C 6.1 % (<5.7)
[2024-06-26 09:51] LABS: D Dimer 0.71 ug/mL (<0.48)
[2024-06-26 09:52] LABS: Ferritin 5.23 ng/mL (11.1-264)
[2024-06-26 11:46] LABS: Free T4 Free Thyroxine Reflex 0.89 ng/dL (0.78-2.19)
[2024-06-26 13:41] LABS: Total Triiodothyronine (T3) 1.34 NG/ML (0.97-1.69)
== END 2024-06-26 07:17 | disposition home or self-care (01) ==
LOC: ANHLAB 07:17
PROVIDERS: PCP Family Medicine Adolescent Medicine; Visit Provider Family Medicine
DX: Z13.1 Encounter for screening for diabetes mellitus (principal); D64.9 Anemia, unspecified; R53.83 Other fatigue; R42 Dizziness and giddiness; R55 Syncope and collapse; Z13.6 Encounter for screening for cardiovascular disorders
CPT/HCPCS: 36415; 80053; 80061; 82728; 83036; 83540; 83550; 84439; 84443; 84480; 85025; 85380

== ENCOUNTER 2024-06-27 15:03 | Outpatient (CLI) | payer MEDICARE, SELFPAY ==
--- OUTSIDE RECORDS SUMMARY | 2024-06-27 15:34 | XMS_ITS | Continuity of Care Document ---
Author Organization [facility] Address [address] [place] [address] Phone Care Team Providers Care Bail Attacher Name Role Phone Ryan Garcia MD Unavailable Unavailable Advance Directives Directive Yes / No Effective Date File Name No Information Encounters Encounter Description Practice Location Reason(s) For Visit Diagnoses Date Provider Providers Copied on Encounter [facility], [address], [place], [place], [id number], [place] tel:[phone] [facility] No Information Jose Davis. [address] , [place], [place], [address], [place]. tel:[phone] Referring Provider: Raul Gupta, [address], [place], [address]. tel:[phone] Family History Family Member Type Diagnosis Age At Onset No Information Payers Payer name Insurance type Covered constitution party ID Authoriza tion(s) MEDICARE MB [id number] BCBS INACTIVE OUT OF STATE [id number] Social History Type Description Quantity Date Captured Comments Sex Female Smoking Status No Information Chief Complaint And Reason For Visit No Information Reason For Referral Reason For Referral No Information History Of Present Illness Encounter Date Complaint History Of Prese nt Illness No Information Functional Status Date Functional Assessmen t No Information Instructions Date Instruction Additional Infor mation No Information Assessments Type Assessment Date No Information Patient Care Teams Name Effective Dates (start - stop) Status Members No Information
--- OUTSIDE RECORDS SUMMARY | 2024-06-27 15:34 | XMS_ITS | Clinical Summary ---
Author Organization [facility] Address [address] [place] [address]. [place] [address] [place] [address] Care Team Providers Care Facing Machine Operator Name Role Phone New Referring, Provider Primary Care Provider Un available Allergies Active Allergy Reactions Criticality Noted Date Comments Penicillins Hives 12/03/2018 Medications duloxetine 60 MG capsule Take 60 mg by mouth daily. Active naproxen sodium 220 MG tablet Take 220 mg by mouth daily. Active Cholecalciferol (VITAMIN D) 1000 UNIT tablet Take 1,000 Units by mouth daily. Active Multiple Vitamin tablet Take 1 tablet by mouth daily. Active Social History Tobacco Use Types Packs/Day Years Used Date Smoking Tobacco: Former Cigarettes Q uit: 12/03/1965 Smokeless Tobacco: Never Alcohol Use Standard Drinks/Week Comments Yes 0 (1 standard drink = 0.6 oz pur e alcohol) occ. Comments No Sex and Gender Information Value Date Recorded Sex Assigned at Not on file Legal Sex Female 12:25 PM CDT Gender Identity Not on file Sexual Orientation Not on file Last Filed Vital Signs Vital Sign Reading Time Taken Comments Blood Pressure 119/65 12/05/2018 8:00 AM CDT Pulse 57 12/05/2018 8:00 AM CDT Temperature 36.3 ??C (97.4 ??F) 12/05/2018 6:28 AM CD T Respiratory Rate 16 12/05/2018 8:00 AM CDT Oxygen Saturation 96% 12/05/2018 8:00 AM CDT Inhaled Oxygen Concentration - - Weight 74.8 kg (165 lb) 12/03/2018 12:41 PM CDT Height 160 cm (5' 3 ) 12/03/2018 12:41 PM CDT Body Mass Index 29.23 12/03/2018 12:41 PM CDT Plan of Treatment Health Maintenance Due Date Last Done Comments Colorectal Cancer Screening Colonoscopy (10 Years) 1948 Hepatitis C 1966 DTaP, Tdap and Td Vaccines ( 1 - Tdap) 09/20/1967 Zoster Vaccines (1 of 2) 1998 Annual Medicare Wellness Visit 2013 Dexa Scan (General) 2013 Pneumococcal Vaccine: 65+ Ye ars (1 of 1 - PCV) 2013 RSV Immunization or 60+ Years (1 - 1-dose 75+ series) 09/20/2023 COVID-19 Vaccine ( - 2023-2 5 season) 2024 Influenza Adult (#1) 2024 Meningococcal B Vaccine Aged Out No l onger eligible based on patient's age to complete this topic Meningococcal Vaccine Aged Out No selma heidy eligible based on patient's age to complete this topic RSV Immunizations Under 20 Months Aged Out No longer eligible based on patient's age to complete this topic Medical Devices Implanted Type Area Journeyman Meat Cutter Device Identifier Shelf Expiration Date Model / Serial / Lot Iol [employer] Zcboo - [id number] Implanted:Qty: 1 on 12/05/2018 by Samuel Rizo MD at [facility] [employer] 01/16/2022 [id number] / [id number] / [place] [address] MEDICARE [facility] Care Teams Facing Machine Operator Relationship Specialty Start Date End Date New Referring, Provider PCP - General UNKNOWN PHYSICIAN SPECIALTY 11/30/18
[2024-06-27 15:51] LABS: Basophils Percent Auto 0.4 % (0.2-1.2); Eosinophils Absolute Auto 0.1 K/mm3 (0-0.3); Eosinophils Percent Auto 1.8 % (0-4.4); Hematocrit 31.1 % (37.0-47.0); Hemoglobin 9.4 g/dL (12.0-15.0); Immature Granulocyte Absolute 0.01 K/mm3 (0.00-0.031); Immature Granulocyte Percent A 0.2 % (0-0.5); Lymphocytes Absolute Auto 2.31 K/mm3 (0.9-3.2); Lymphocytes Percent Auto 44.9 % (18.3-44.2); Mean Corpuscular HGB Conc 30.2 g/dl (32-36); Mean Corpuscular Hemoglobin 21.7 pg (26-34); Mean Corpuscular Volume 71.8 fl (80-100); Mean Platelet Volume 11.3 fl (7.4-10.4); Monocytes Absolute Auto 0.4 K/mm3 (0.1-0.6); Monocytes Percent Auto 7.6 % (2.6-8.5); Neutrophils Absolute Auto 2.3 K/mm3 (1.3-6.7); Neutrophils Percent Auto 45.1 % (45.5-73.1); Platelet Count Result 299 k/mm3 (150-375); Red Blood Count 4.33 M/mm3 (4.2-5.4); Red Cell Distribution Width 17.8 % (11.5-14.5); White Blood Count 5.1 K/mm3 (4.5-10.0)
[2024-06-27 16:03] LABS: Platelet Estimate Adequate (Adequate)
[2024-06-27 16:04] LABS: Microcytosis 1+ (NORMAL); Schistocytes None Seen; Target Cells 1+
== END 2024-06-27 15:04 | disposition home or self-care (01) ==
PROVIDERS: PCP Family Medicine Adolescent Medicine; Visit Provider Family Medicine
DX: D72.829 Elevated white blood cell count, unspecified (principal); D64.9 Anemia, unspecified
CPT/HCPCS: 36415; 85025

== ENCOUNTER 2024-07-08 09:14 | Outpatient (CLI) | payer MEDICARE, SELFPAY ==
--- OUTSIDE RECORDS SUMMARY | 2024-07-08 09:42 | XMS_ITS | Clinical Summary ---
Author Organization [facility] Address [address] [place] [address] Care Team Providers Care Crepe Sole Wire Brusher Name Role Phone New Referring, Provider Primary [...] 57 12/05/2018 8:00 AM CDT Temperature 36.3 C (97.4 F) 12/05/2018 6:28 AM CDT Respiratory Rate 16 12/05/2018 8:00 AM CDT [...] - 1-dose 75+ series) 09/20/2023 COVID-19 Vaccine (1 - 2023-2 5 season) 2024 Influenza Adult [...] this topic Medical Devices Implanted Type Area Sales Producer Device Identifier Shelf Expiration Date Model / Serial / Lot Iol [place] [employer] Zcboo - [id number] Implanted:Qty: 1 on 12/05/2018 by Samuel Rizo MD at [facility] [employer] 01/16/2022 [id number] / [id number] / [place] [address] MEDICARE [facility] Care Teams Crepe Sole Wire Brusher Relationship Specialty Start Date End Date New Referring, Provider PCP - General UNKNOWN PHYSICIAN SPECIALTY 11/30/18
--- OUTSIDE RECORDS SUMMARY | 2024-07-08 09:42 | XMS_ITS | Continuity of Care Document ---
Author Organization [facility] Address [address] [place] [address] Phone Care Team Providers Care Database Support Name Role Phone Ryan Garcia MD Unavailable Unavailable Advance Directives Directive Yes / No Effective Date File Name No Information Encounters Encounter Description Practice Location Reason(s) For Visit Diagnoses Date Provider Providers Copied on Encounter [facility], [address], [place], [place], [address], [place] tel:[phone] [facility] No Information Jose Davis. [address] , [place], [place], [address], [place]. tel:[phone] Referring Provider: Raul Gupta, [address], [place], [address]. tel:[phone] Family History Family Member Type Diagnosis Age At Onset No Information Payers Payer name Insurance type Covered libertarian ID Authoriza tion(s) MEDICARE MB [id number] BCBS INACTIVE OUT OF STATE [id number] Social History Type Description Quantity Date Captured [...]
== END 2024-07-08 09:15 | disposition home or self-care (01) ==
PROVIDERS: PCP Family Medicine Adolescent Medicine; Visit Provider Family Medicine
DX: R42 Dizziness and giddiness (principal); R55 Syncope and collapse
CPT/HCPCS: 93242

== ENCOUNTER 2024-07-15 12:25 | Outpatient (CLI) | payer MEDICARE, SELFPAY ==
--- NOTE | ~2024-07-15 | CT_ITS ---
EXAMINATION: CTA chest PE protocol DATE: 07/15/2024 13:10 INDICATION: Abnormal finding of blood chemistry. Shortness of breath and cough. TECHNIQUE: Computed tomography (CT) pulmonary angiogram of the chest was performed with 100 mL Omnipa que-350 intravenous contrast. Additional 3D reconstructions utilizing coronal maximum intensity proje ction (MIP) were performed. Automated exposure control and iterative reconstruction technique were em ployed. The dose-length product was 186.75 mGy-cm. COMPARISON: None FINDINGS: No pulmonary embolism. No pneumonia, pulmonary edema, pleural effusion or pneumothorax. Heart size is normal. No pericardial effusion. Thoracic aorta is normal in caliber with no dissection. No patholog ically enlarged abdominal or pelvic lymphadenopathy. Status post interval hiatal hernia repair with s mall residual sliding-type hiatal hernia at the site of a prior large hernia previously containing th e entire stomach. T12 compression fracture with chronic vertebroplasty. 3.0 cm low-attenuation right adrenal adenoma. IMPRESSION: 1. No pulmonary embolism or other acute cardiopulmonary disease. 2. Residual/recurrent small sliding-type hiatal hernia post repair of a prior large hiatal hernia. Reviewed, dictated and finalized at location A. BOX FIXER IMPRESSION: 1. No pulmonary embolism or other acute cardiopulmonary disease. 2. Residual/recurrent small sliding-type hiatal hernia post repair of a prior l arge hiatal hernia.
--- OUTSIDE RECORDS SUMMARY | 2024-07-15 14:53 | XMS_ITS | Continuity of Care Document ---
Author Organization [facility] Address [address] [place] [address] Phone Care Team Providers Care Ophthalmic Photographer Name Role Phone Ryan Garcia MD Unavailable Unavailable Advance Directives Directive Yes / No Effective Date File Name No Information Encounters Encounter Description Practice Location Reason(s) For Visit Diagnoses Date Provider Providers Copied on Encounter [facility], [address], [place], [place], [address], [place] tel:[phone] [facility] No Information Jose Davis. [address] , [place], [place], [address], [place]. tel:[phone] Referring Provider: Raul Gupta, [address], [place], [address]. tel:[phone] Family History Family Member Type Diagnosis Age At Onset No Information Payers Payer name Insurance type Covered libertarian ID Authoriza tion(s) MEDICARE MB [id number] BCBS INACTIVE OUT OF STATE [id number] Social History Type Description Quantity Date Captured [...]
--- OUTSIDE RECORDS SUMMARY | 2024-07-15 14:53 | XMS_ITS | Clinical Summary ---
Author Organization [facility] Address [address] [place] [address] Care Team Providers Care Twist Maker Name Role Phone New Referring, Provider Primary [...] this topic Medical Devices Implanted Type Area Glass Cutting Machine Feeder Device Identifier Shelf Expiration Date Model / Serial / Lot Iol [place] [employer] Zcboo - [id number] Implanted:Qty: 1 on 12/05/2018 by Samuel Rizo MD at [facility] [employer] 01/16/2022 [id number] / [id number] / [place] [address] [facility] Care Teams Twist Maker Relationship Specialty Start Date End Date New Referring, Provider PCP - General UNKNOWN PHYSICIAN SPECIALTY 11/30/18
== END 2024-07-15 12:26 | disposition home or self-care (01) ==
PROVIDERS: PCP Family Medicine Adolescent Medicine; Visit Provider Family Medicine
DX: R79.89 Other specified abnormal findings of blood chemistry (principal)
CPT/HCPCS: 71275; Q9967

== ENCOUNTER 2024-08-02 10:02 | Outpatient (CLI) | payer MEDICARE, SELFPAY ==
--- OUTSIDE RECORDS SUMMARY | 2024-08-02 10:49 | XMS_ITS | Clinical Summary ---
Author Organization [facility] Address [address] [place] [address] Care Team Providers Care Adding Machine Servicer Name Role Phone New Referring, Provider Primary [...] this topic Medical Devices Implanted Type Area Mash Processing Operator Device Identifier Shelf Expiration Date Model / Serial / Lot Iol [place] [employer] Zcboo - [id number] Implanted:Qty: 1 on 12/05/2018 by Samuel Rizo MD at [facility] [employer] [employer] [facility] 01/16/2022 [id number] / [id number] / [place] [address] MEDICARE [facility] Care Teams Adding Machine Servicer Relationship Specialty Start Date End Date New Referring, Provider PCP - General UNKNOWN PHYSICIAN SPECIALTY 11/30/18
--- OUTSIDE RECORDS SUMMARY | 2024-08-02 10:49 | XMS_ITS | Continuity of Care Document ---
Author Organization [facility] Address [address] [place] [address] Phone Care Team Providers Care Dental Practice Manager Name Role Phone Ryan Garcia MD Unavailable Unavailable Advance Directives Directive Yes / No Effective Date File Name No Information Encounters Encounter Description Practice Location Reason(s) For Visit Diagnoses Date Provider Providers Copied on Encounter [facility], [address], [place], [place], [address], [place] tel:[phone] [facility] No Information Jsoe Davis. [address] , [place], [place], [id number], [place]. tel:[phone] Referring Provider: Raul Gupta, [address], [place], [address]. tel:[phone] Family History Family Member Type Diagnosis Age At Onset No Information Payers Payer name Insurance type Covered alliance party ID Authoriza tion(s) MEDICARE [place] [id number] BCBS INACTIVE OUT OF STATE [id number] Social History Type Description Quantity Date Captured [...]
[2024-08-02 11:07] LABS: Basophils Percent Auto 0.4 % (0.2-1.2); Eosinophils Absolute Auto 0.1 K/mm3 (0-0.3); Eosinophils Percent Auto 2.6 % (0-4.4); Hematocrit 35.9 % (37.0-47.0); Hemoglobin 10.8 g/dL (12.0-15.0); Immature Granulocyte Absolute 0.01 K/mm3 (0.00-0.031); Immature Granulocyte Percent A 0.2 % (0-0.5); Lymphocytes Percent Auto 37.2 % (18.3-44.2); Mean Corpuscular HGB Conc 30.1 g/dl (32-36); Mean Corpuscular Hemoglobin 23.3 pg (26-34); Mean Corpuscular Volume 77.5 fl (80-100); Mean Platelet Volume 10.3 fl (7.4-10.4); Monocytes Absolute Auto 0.5 K/mm3 (0.1-0.6); Monocytes Percent Auto 9.1 % (2.6-8.5); Neutrophils Absolute Auto 2.7 K/mm3 (1.3-6.7); Neutrophils Percent Auto 50.5 % (45.5-73.1); Platelet Count Result 261 k/mm3 (150-375); Red Blood Count 4.63 M/mm3 (4.2-5.4); Red Cell Distribution Width 24.5 % (11.5-14.5); White Blood Count 5.4 K/mm3 (4.5-10.0)
[2024-08-02 11:27] LABS: Anisocytosis 1+; Hypochromasia 1+; Iron 96 ug/dL (37-170); Platelet Estimate Adequate (Adequate); Schistocytes None Seen
[2024-08-02 11:36] LABS: Percent Iron Saturation 21 % (20-50)
[2024-08-02 12:03] LABS: Ferritin 8.76 ng/mL (11.1-264)
[2024-08-02 15:13] LABS: Free T4 Free Thyroxine Reflex 0.89 ng/dL (0.78-2.19)
[2024-08-02 17:32] LABS: Total Triiodothyronine (T3) 1.35 NG/ML (0.97-1.69)
== END 2024-08-02 10:03 | disposition home or self-care (01) ==
LOC: ANHLAB 10:05
PROVIDERS: PCP Family Medicine; Visit Provider Family Medicine
DX: D50.9 Iron deficiency anemia, unspecified (principal); E03.8 Other specified hypothyroidism
CPT/HCPCS: 36415; 82728; 83540; 83550; 84439; 84443; 84480; 85025

== ENCOUNTER 2024-08-14 12:16 | Outpatient (CLI) | payer MEDICARE, SELFPAY ==
--- NOTE | 2024-08-14 12:52 | ECHO_ITS ---
Patient Info Name: Jayde Boateng Age: 73 years : 1950 Gender: Female Ht: 60 in Wt: 147 lbs BSA: 1.70 m2 HR: 59 bpm BP: 172 / 104 mmHg Technical Quality: Good Exam Date: 08/14/2024 12:57 PM Exam Location: Echo Lab Patient Status: Outpatient Admit Date: 08/14/2024 Staff Ordering Physician: Candi Almaraz DO Director Government: Heena Soliman RDCS Attending Provider: Candi Almaraz DO Referring Physician: Sung ALONSO; Exam Type: CA echo doppler color flow Study Info Indications R00.2 - Palpitations Complete two-dimensional, color flow and Doppler transthoracic echocardiogram is performed. Summary 1. Complete two-dimensional, color flow and Doppler transthoracic echocardiogram is performed. 2. Left ventricular chamber dimension is normal. 3. Left ventricular systolic function is normal, estimated at 60-65%. 4. The left ventricular diastolic function is normal. 5. E/e' 8 is minimally elevated. 6. Left atrial chamber dimension is moderately enlarged. 7. There is mild aortic valve sclerosis. 8. There is mild aortic valve regurgitation. 9. There is mild mitral valve regurgitation. 10. There is mild tricuspid valve regurgitation. 11. No pulmonary hypertension, estimated pulmonary arterial systolic pressure is 26 mmHg. Left Ventricle E/e' 8 is minimally elevated. Left ventricular chamber dimension is normal. Left ventricular systolic function is normal, estimated at 60-65%. The left ventricular diastolic function is normal. Right Ventricle Right ventricular chamber dimension is normal. Right ventricular systolic function is normal. Left Atria Left atrial chamber dimension is moderately enlarged. Right Atria Right atrial chamber dimension is normal. Aortic Valve The aortic valve is trileaflet. There is mild aortic valve sclerosis. There is no aortic valve stenosis. There is mild aortic valve regurgitation. Pulmonic Valve There is no pulmonic regurgitation. Mitral Valve There is no mitral valve stenosis. There is mild mitral valve regurgitation. Tricuspid Valve There is mild tricuspid valve regurgitation. No pulmonary hypertension, estimated pulmonary arterial systolic pressure is 26 mmHg. Pericardium/Pleural There is no pericardial effusion. Inferior Vena Cava Normal inferior vena cava with >50% collapse upon inspiration consistent with normal right atrial pressure, 5 mmHg. Aorta The aortic root size at the sinus of Valsalva is normal. Left Ventricular Outflow Tract Name Value Normal LVOT 2D LVOT Diameter 1.9 cm LVOT Doppler LVOT Peak Gradient 4 mmHg LVOT Mean Gradient 2 mmHg LVOT VTI 23 cm LVOT VTI/AV VTI Ratio 0.7 LVOT Stroke Volume 64 ml LVOT CO 11.6 l/min LVOT CI 6.8 l/min/m2 Pulmonic Valve Name Value Normal PV Doppler PV Peak Gradient 2 mmHg Mitral Valve Name Value Normal MV Doppler MV [place] 430 cm/s2 MV PHT 51 ms MV Area (PHT) 4.3 cm2 4.0-5.0 MV Diastolic Function MV E Peak Velocity 76 cm/s MV A Peak Velocity 48 cm/s MV E/A 1.6 MV Decel Time 176 ms MV Annular TDI MV E/e' (Septal) 9.6 <=8.0 MV E/e' (Lateral) 7.3 <=8.0 MV E/e' (Average) 8.4 Tricuspid Valve Name Value Normal TV Regurgitation Doppler TR Peak Velocity 229 cm/s TR Peak Gradient 18 mmHg Estimated PAP/RSVP RA Pressure 5 mmHg <=5 PA Systolic Pressure 26 mmHg <36 RV Systolic Pressure 26 mmHg <36 Aorta Name Value Normal Ascending Aorta Ao Root Diameter (MM) 3.5 cm Ao Root Diam Index (MM) 2.0 cm/m2 Aortic Valve Name Value Normal AV Doppler AV Peak Velocity 123 cm/s AV Peak Gradient 6 mmHg AV Mean Gradient 4 mmHg AV VTI 31 cm AV Area (Cont Eq VTI) 2.1 cm2 >=3.0 AV Area (Cont Eq Sherif) 2.2 cm2 AV Regurgitation 2D LVOT Area 2.7 cm2 Ventricles Name Value Normal LV Dimensions 2D/MM IVS Diastolic Thickness (2D) 1.0 cm 0.6-1.0 LVID Diastole (2D) 3.7 cm 3.8-5.2 LVIW Diastolic Thickness (2D) 1.0 cm 0.6-0.9 LVID Systole (2D) 2.6 cm 2.2-3.5 LVOT Diameter 1.9 cm LV Mass (2D Cubed) 110.40 g 67.00-162.00 LV Mass Index (2D Cubed) 65 g/m2 43-95 Relative Wall Thickness (2D) 0.52 LV Fractional Shortening/Ejection Fraction 2D/MM LV Fractional Shortening (2D) 29 % 27-45 LV EF (2D Teicholz) 56 % 54-74 LV Diastolic Volume (4C MOD) 72 ml LV EF (4C MOD) 66 % LV Diastolic Volume (2C MOD) 71 ml LV EF (2C MOD) 54 % LV Diastolic Volume (BP MOD) 71 ml 46-106 LV Diastolic Volume Index (BP MOD) 42 ml/m2 29-61 LV Systolic Volume (BP MOD) 28 ml 14-42 LV Systolic Volume Index (BP MOD) 17 ml/m2 8-24 LV EF (BP MOD) 60 % 54-74 LV Diastolic Length (4C) 7.1 cm LV Systolic Length (4C) 5.7 cm LV Stroke Volume (4C MOD) 47 ml RV Dimensions 2D/MM RVID Diastole (2D) 3.8 cm 2.5-3.5 Atria Name Value Normal LA Dimensions LA Dimension (MM) 4.2 cm 2.7-3.8 LA Volume (4C A-L) 96 ml LA Volume (BP A-L) 90 ml RA Dimensions RA Area (4C) 17.7 cm2 <=18.0 Report Signatures
--- OUTSIDE RECORDS SUMMARY | 2024-08-14 13:45 | XMS_ITS | Continuity of Care Document ---
Author Organization [facility] Address [address] [place] [address] Phone Care Team Providers Care Envelope Machine Adjuster Name Role Phone Ryan Garcia MD Unavailable Unavailable Advance Directives Directive Yes / No Effective Date File Name No Information Encounters Encounter Description Practice Location Reason(s) For Visit Diagnoses Date Provider Providers Copied on Encounter [facility], [address], [place], [place], [address], [place] tel:[phone] [facility] No Information Jose Davis. [address] , [place], [place], [id number], [place]. tel:[phone] Referring Provider: Raul Gupta, [address], [place], [address]. tel:[phone] Family History Family Member Type Diagnosis Age At Onset No Information Payers Payer name Insurance type Covered republican ID Authoriza tion(s) [place]ICARE [place] [id number] BCBS INACTIVE OUT OF STATE [id number] Social History Type Description Quantity Date Captured [...]
--- OUTSIDE RECORDS SUMMARY | 2024-08-14 13:45 | XMS_ITS | Clinical Summary ---
Author Organization [facility] Address [address] [place] [address] Care Team Providers Care Marine Electronics Repairer Name Role Phone New Referring, Provider Primary [...] this topic Medical Devices Implanted Type Area Jacquard Loom Carpet Weaver Device Identifier Shelf Expiration Date Model / Serial / Lot Iol [place] [employer] Zcboo - [id number] Implanted:Qty: 1 on 12/05/2018 by Samuel Rizo MD at [facility] [employer] [facility] 01/16/2022 [id number] / [id number] / [place] [address] MEDICARE [facility] Care Teams Marine Electronics Repairer Relationship Specialty Start Date End Date New Referring, Provider PCP - General UNKNOWN PHYSICIAN SPECIALTY 11/30/18
== END 2024-08-14 12:17 | disposition home or self-care (01) ==
PROVIDERS: PCP Family Medicine; Visit Provider Family Medicine
DX: I08.3 Combined rheumatic disorders of mitral, aortic and tricuspid valves (principal); I35.8 Other nonrheumatic aortic valve disorders; R00.2 Palpitations
CPT/HCPCS: 93306

== ENCOUNTER 2024-10-18 07:59 | Outpatient (CLI) | payer MEDICARE, SELFPAY ==
--- NOTE | ~2024-10-18 | NM_ITS ---
EXAMINATION: NM brielle stress w perfusion DATE: 10/18/2024 13:27 CDT INDICATION: Ventricular tachycardia TECHNIQUE: Rest images were obtained following intravenous administration of 9.1 mCi Tc99m tetrofosmi n (Myoview). The patient was infused intravenously with Lexiscan (regadenoson). Then, 30 mCi Tc99m te trofosmin (Myoview) was administered intravenously, and stress images were obtained. Data was reconst ructed into short axis and horizontal and vertical long axis SPECT images. Gated SPECT images were al so obtained. COMPARISON: None. FINDINGS: There is no definite reversible or fixed perfusion abnormality to suggest ischemia or infar ction. There is no segmental wall motion abnormality. Left ventricular ejection fraction measures 7 6%. IMPRESSION: 1. No definite ischemia or infarct. 2. Normal left ventricular ejection fraction measuring 76%. Reviewed, dictated and finalized at location B.
--- OUTSIDE RECORDS SUMMARY | 2024-10-18 08:05 | XMS_ITS | Continuity of Care Document ---
Author Organization [facility] Address [address] [place] [address] Phone Care Team Providers Care Retread Operator Name Role Phone Ryan Garcia MD Unavailable Unavailable Advance Directives Directive Yes / No Effective Date File Name No Information Encounters Encounter Description Practice Location Reason(s) For Visit Diagnoses Date Provider Providers Copied on Encounter [facility], [address], [place], [place], [address], [place] tel:[phone] [facility] No Information Jose Davis. [address] , [place], [place], [id number], [place]. tel:[phone] Referring Provider: Raul Gupta, [address], [place], [address]. tel:[phone] Family History Family Member Type Diagnosis Age At Onset No Information Payers Payer name Insurance type Covered republican ID Authoriza tion(s) [place]ARE [place] [id number] BCBS INACTIVE OUT OF STATE [id number] Social History Type Description Quantity Date Captured [...]
--- NOTE | 2024-10-18 08:11 | EST_ITS ---
Patient Info Name: Jayde Boateng Age: 74 years : 1950 Gender: Female Ht: 60 in Wt: 150 lbs BSA: 1.72 m2 HR: 52 bpm BP: 124 / 86 mmHg Exam Date: 10/18/2024 8:11 AM Patient Status: O Admit Date: 10/18/2024 Exam Type: CA stress brielle w NM A regadenoson stress test was performed. Staff Referring Physician: Edgar Coreas DO Attending Provider: Edgar Coreas DO Exercise Technologist: Cierra Navas Exercise Physician: Edgar Coreas DO Summary 1. 1. Negative lexiscan stress test for ischemic ST changes by ECG criteria. 2. 2. Stable hemodynamics throughout the test. 3. 3. Nuclear scan to follow and will be reported separately. Please correlate with it. 4. 4. Patient informed of the above results. Protocol: Lexiscan Stress ECG Details Stage: REST Duration (min): 1 min : 43 sec HR (bpm): 52 SBP (mmHg): 124 DBP (mmHg): 86 Stage: REST Duration (min): 8 min : 13 sec HR (bpm): 54 SBP (mmHg): 124 DBP (mmHg): 86 Stage: STAGE 1 Duration (min): 1 min : 0 sec HR (bpm): 67 SBP (mmHg): 146 DBP (mmHg): 87 Stage: RECOVERY Duration (min): 1 min : 0 sec HR (bpm): 83 SBP (mmHg): 146 DBP (mmHg): 87 Stage: RECOVERY Duration (min): 2 min : 0 sec HR (bpm): 74 SBP (mmHg): 146 DBP (mmHg): 87 Stage: RECOVERY Duration (min): 3 min : 0 sec HR (bpm): 73 SBP (mmHg): 146 DBP (mmHg): 87 Stage: RECOVERY Duration (min): 3 min : 11 sec HR (bpm): 72 SBP (mmHg): 139 DBP (mmHg): 89 Rest HR: 54 bpm Peak HR: 85 bpm Rest Sys BP: 124 mmHg Peak Sys BP: 146 mmHg Max Pred HR: 144 bpm % Max Pred HR: 59 % Target HR: 122 bpm Max RPP: 12,410 bpm*mmHg Termination Reason: Completed protocol Cardiac Symptoms: Shortness of breath Total Time: 1 min : 0 sec Rest Jurado BP: 86 mmHg Peak Jurado BP: 87 mmHg Total Dose: 0.4 mg Resting ECG Sinus rhythm. Stress ECG No ST changes. Arrhythmias None. Report Signatures
== END 2024-10-18 08:00 | disposition home or self-care (01) ==
PROVIDERS: PCP Family Medicine Adolescent Medicine; Visit Provider Internal Medicine Cardiovascular Disease
DX: I47.20 Ventricular tachycardia, unspecified (principal)
CPT/HCPCS: 78452; 93017; A9502; J2785

== ENCOUNTER 2024-12-09 08:15 | Outpatient (CLI) | payer MEDICARE, SELFPAY ==
--- OUTSIDE RECORDS SUMMARY | 2024-12-09 08:20 | XMS_ITS | Clinical Summary ---
Author Organization [facility] Address [address] [place] [address] Care Team Providers Care Boat Dock Operator Name Role Phone New Referring, Provider [...] 12:41 PM CDT Height 160 cm (5' 3) 12/03/2018 12:41 PM CDT Body Mass Index 29.23 12/03/2018 12:41 PM CDT Plan of Treatment Health Maintenance Due Date Last Done Comments Hepatitis C 1966 DTaP, Tdap and Td Vaccines ( 1 - Tdap) 09/20/1967 Pneumococcal Vaccine: 50+ Ye ars (1 of 1 - PCV) 1998 Zoster Vaccines (1 of 2) 1998 Annual Medicare Wellness Visit 2013 Dexa Scan (General) 2013 RSV Immunization or 60+ Years (1 - 1-dose 75+ series) 09/20/2023 COVID-19 Vaccine (1 - 2023-2 5 season) 2024 Meningococcal B Vaccine Aged Out No l onger eligible based on patient's age to complete this topic Meningococcal Vaccine Aged Out No selma heidy eligible based on patient's age to complete this topic RSV Immunizations Under 20 Months Aged Out No longer eligible based on patient's age to complete this topic Medical Devices Implanted Type Area Fence Rider Device Identifier Shelf Expiration Date Model / Serial / Lot Iol [employer] Zcboo - [id number] Implanted:Qty: 1 on 12/05/2018 by Samuel Rizo MD at [facility] [employer] [facility] 01/16/2022 [id number] / [id number] / Insurance [place], [place] [id number] MEDICARE [facility] Care Teams Boat Dock Operator Relationship Specialty Start Date End Date New Referring, Provider PCP - General UNKNOWN PHYSICIAN SPECIALTY 11/30/18
--- NOTE | 2025-01-05 15:40 | P.SLEEP_ITS ---
Sleep Study Date of Study: 12/09/24 Ordering Provider: Edgar Coreas DO Interpreting Physician: Odessa Olivas DO Sleep Study Type: Split Polysomnogram Height: 1.52 m Weight: 68.946 kg Body Mass Index: 29.7 Neck Circumference (inches): 14 [place]: 13 Reason for Sleep Study Daytime hypersomnia Sleep History The patient is a 74-year-old female that a sleep study ordered by her examination proctor for evaluation of sleep apnea. the patient occasionally awakens from sleep short of breath. She rarely awakens at night with heartburn, belching or cough. She frequently snores and is frequently loud enough that others complain. She occasionally has trouble sleeping when she has a cold. She denies waking up gasping for air throughout the night. She denies having breathing problems at night observed by herself or others. She frequently sweats excessively at night. She occasionally has heart palpitations or irregular heartbeats during the night. She occasionally falls asleep during the day but never while driving. She rarely experiences loss of muscle tone when extremely emotional. She occasionally has trouble at school or work due to sleepiness. She denies sleep paralysis. She rarely experiences vivid dreamlike scenes upon awakening or falling asleep. She denies feeling afraid of going to sleep. She occasionally has nightmares. She occasionally remembers her dreams. She occasionally has thoughts racing through her mind. She occasionally feels sad or depressed. She frequently has anxiety. She rarely has muscular tension. She rarely notices parts of her body jerk. She rarely kicks during the night. She occasionally has crawling and aching feelings in her legs and occasionally has leg pain during the night. She denies grinding her teeth during sleep and denies awakening with morning jaw pain. She is occasionally bothered by pain during the day and occasionally awakened by pain during the night. She occasionally wakes up feeling stiff in the morning. She occasionally wakes up with sore or achy muscles. She occasionally wakes up with pain in the neck, spine and other joints. She goes to bed between 10:30 p.m. to midnight on both weekdays and weekends. That amount of time it takes for her to fall asleep is variable. She typically wakes up every 2 hours to urinate and is able to fall back asleep within 20 minutes. She wakes up at 8:00 a.m. on weekdays and at 6:30 a.m. on the weekends. She typically gets 6 hours of sleep per night. She will stay in bed for 15 minutes after waking up in the morning. She currently lives with her . She denies consuming any caffeinated beverages within 2 hours of bedtime. She denies engaging in physical exercise before bedtime. She will occasionally read before falling asleep. She will watch television before falling asleep. She will occasionally take a nap in the afternoon or the evening but is not refreshing. She consumes 3-4 caffeinated beverages per day. She quit smoking cigarettes 58 years ago. She denies alcohol and recreational drug use. [facility] Past Medical History Medical History Mild aortic valve sclerosis Supraventricular tachycardia Iron deficiency anemia Subclinical hypothyroidism Adrenal adenoma 3.0 cm low-attenuation right adrenal adenoma noted on CTA in 06/2024 History of DVT (deep vein thrombosis) GERD (gastroesophageal reflux disease) Torn rotator cuff Right Anxiety Vertigo Fibromyalgia Seasonal allergies Surgical History Surgical History History of Rajeev fundoplication repair paraesophageal hiatal hernia with intrathoracic stomach and Rajeev fundoplication 10/07/2021 History of cataract surgery History of back surgery (2018) Cement put in back. 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 Alcohol intake: current Drinks per week: 1 Alcohol use details: seldom drink Substance use: never Substance use type: does not use Do You Feel Safe in your Home?: Yes Lack of Transportation: No Lack of Food: Never True Current Housing: I Have Housing Concerned About Future Housing: No Difficulty Paying Gas/Electric Bills: No Difficulty Paying for Meds: No Currently Unemployed: No Education: Trade/Vocational Certificate Difficulty w/ Childcare or Family Care: No Living arrangements: with family Additional living arrangements comments: Occupation/Education: retired Additional occupation/education comments: Clerical/office Spiritual care concerns: No Medications Home Medications ?Medication ?Instructions ?Recorded ?Confirmed ?Type cetirizine 10 mg tablet (Zyrtec) 5 mg PO QAM PRN Allergy Symptoms 05/14/19 12/04/24 History multivitamin 1 tablet PO DAILY 05/14/19 12/04/24 History ascorbic acid (vitamin C) 500 mg 500 mg PO QAM 09/28/21 12/04/24 History capsule cholecalciferol (vitamin D3) 125 125 mcg PO QAM 09/28/21 12/04/24 History mcg (5,000 unit) capsule acetaminophen 325 mg capsule 325 mg PO ONCE 06/28/23 12/04/24 History (Tylenol) mecobalamin (vitamin B12) 1,000 1,000 mcg PO DAILY 10/09/23 12/04/24 History mcg lozenges duloxetine 60 mg capsule,delayed See Rx Instructions .Route 11/06/23 12/04/24 Rx release .COMPLEX #90 caps ferrous sulfate 325 mg (65 mg 325 mg PO DAILY 07/10/24 12/04/24 History iron) tablet (Feosol) diclofenac sodium 75 mg 75 mg PO BID PRN 08/26/24 12/04/24 History tablet,delayed release amiodarone 200 mg tablet 200 mg PO DAILY #90 tabs 09/26/24 12/04/24 Rx levothyroxine 25 mcg tablet 25 mcg PO DAILY #90 tabs 01/01/25 Rx (Synthroid) Sleep Procedure A full night split study using the [employer] multi-channel system recorded the standard physiologic parameters including EEG, EOG, submentalis EMG, anterior tibialis EMG, EKG, body position, nasal and oral airflow using nasal pressure sensor and thermistor.? Respiratory parameters of chest and abdominal movements were recorded with Respiratory Inductance Plethysmography belts. Oxygen saturation was recorded by pulse oximetry. Video monitoring was also performed. Sleep stages, periodic limb movements, and EEG arousals were scored in 30 second epochs according to the criteria of the AASM Scoring Manual. The Apnea-Hypopnea Index was calculated using CMS guidelines for definition of hypopnea with 4% O2 desaturations while scoring respiratory events. Sleep Architecture During the diagnostic portion of the study, the total recording time was 275.4 minutes. The total sleep time was 131.5 minutes. Sleep latency was 23.4 minutes.? REM sleep was not achieved during this portion of the study. Sleep Efficiency was 47.7%. The patient had 31 awakenings for an awakening index of 14.1. Wake after sleep onset time was 120.5 minutes. The patient spent 19.0 minutes, 14.4% of total sleep time in Stage N1. The patient spent 112.5 minutes, 85.6% in Stage N2. The patient spent 0.0 minutes, 0.0% in Stage N3. The patient spent 0.0 minutes, 0.0% in Stage REM sleep. At 03:03:22 AM the patient was placed on PAP treatment and was titrated at pressures ranging from 5 cm H20 up to 10/4 cm H20. During the treatment portion of the study, the total recording time was 247.0 minutes.? The total sleep time was 206.0 minutes. Sleep latency was 15.0 minutes. REM latency was 203.5 minutes. Sleep Efficiency was 83.4%. Wake after Sleep Onset time was 26.0 minutes. The patient spent 10.0 minutes, 4.9% of total sleep time in Stage N1. The patient spent 167.0 minutes, 81.1% in Stage N2. The patient spent 3.5 minutes, 1.7% in Stage N3. The patient spent 25.5 minutes, 12.4% in Stage REM. Respiratory Analysis During the diagnostic portion of the study, the patient had 25 hypopneas, 2 obstructive apneas, 3 mixed apneas, and 23 central apneas for an overall Apnea Hypopnea Index of 24.2 events per hour. The REM Apnea Hypopnea Index was 0. The NREM Apnea Hypopnea Index was 24.2. The patient had a Central Apnea Hypopnea Index of 10.5. There was no evidence of Toni-Huntley Respirations. During the treatment portion of the study, the patient had 1 hypopnea, 5 obstructive apneas and 112 central apneas for an overall Apnea Hypopnea Index of 34.4 events per hour. The REM Apnea Hypopnea Index was 40.0. The NREM Apnea Hypopnea Index was 33.6. The patient had a Central Apnea Hypopnea Index of 32.6. Toni-Huntley Respirations were present during this portion of the study. The patient had a cycle length of 49.3 seconds and a circulation time of 24.9 seconds. The patient was started on CPAP 5 cm H2O and titrated to BPAP 10/4 cm H2O due to central apneas and hypopneas. The patient was able to fall asleep starting on CPAP 6 cm H2O. The patient was able to achieve REM sleep starting on BPAP 10/4 cm H2O. When the patient was switched to BPAP therapy, she developed a significant number of central apneas. On CPAP 6 cm H2O, the patient spent 78 minutes in NREM with 2 central apneas, resulting in an AHI of 1.5. The patient had a sleep efficiency of 81.7% on this pressure setting. The residual AHI did not go below 29 on all other pressure settings that were tested. Arousals During the diagnostic portion of the study, there were a total of 189 arousals for an arousal index of 86.2.? There were 36 respiratory arousals for an index o f 16.4. There were 97 periodic limb movement arousals for an index of 44.3.? There were 10 isolated limb movement arousals for an index of 4.6. There were 46 spontaneous arousals for an index of 21.0. During the treatment portion of the study, there were a total of 76 arousals for an index of 22.1.? There were 8 respiratory arousals for an index of 2.3. There were 28 periodic limb movement arousals for an index of 8.2.? There were 17 isolated limb movement arousals for an index of 5.0. There were 24 spontaneous arousals for an index of 7.0. Periodic Limb Movements During the diagnostic portion of the study, the patient had 24 isolated limb movements with an index of 11.0. The patient had 294 periodic limb movements with an index of 134.1, which is elevated (normal < 15). The patient had a total of 318 limb movements with a total limb movement index of 145.1. During the treatment portion of the study, the patient had 28 isolated limb movements with an index of 8.2. The patient had 159 periodic limb movements with an index of 46.3, which is elevated (normal < 15). The patient had a total of 187 limb movements with a total limb movement index of 54.5. Oximetry Data During the diagnostic portion of the study, the patient had an average oxygen saturation of 93.2% in wake with a minimum oxygen saturation of 88% and a maximum oxygen saturation of 97%. The patient had an average oxygen saturation of 92.8% in sleep with a minimum oxygen saturation of 85.0% and a maximum oxygen saturation of 97.0%. The patient had 42 oxygen desaturations resulting in an Oxygen Desaturation Index of 19.6. The patient spent 1.5 minutes, 0.5% of total sleep time with an oxygen saturation less than 88%. During the treatment portion of the study, the patient had an average oxygen saturation of 93.8% in wake with a minimum oxygen saturation of 90.0% and a maximum oxygen saturation of 98.0%. The patient had an average oxygen saturation of 93.1% in sleep with a minimum oxygen saturation of 88.0% and a maximum oxygen saturation of 98.0%. The patient had 87 oxygen desaturations resulting in an Oxygen Desaturation Index of 25.3. The patient spent 0.3 minutes, 0.1% of total sleep time with an oxygen saturation less than 88%. Snoring Profile Snoring was rare in the baseline portion of the study. The snoring resolved once the patient was started on CPAP. Cardiac Profile The EKG lead showed normal sinus rhythm. No arrhythmias or premature beats were seen. During the diagnostic portion of the study, the average pulse rate was 61.2 bpm.? The minimum pulse rate was 49.0 bpm. The maximum pulse rate was 82.0 bpm. During the treatment portion of the study, the average pulse rate was 57.2 bpm.? The minimum pulse rate was 48.0 bpm. The maximum pulse rate was 80.0 bpm. EEG Profile No signs of seizure activity seen. Assessment and Plan Assessment and Plan (1) Treatment-emergent central sleep apnea: Code(s): T81.89XA - Other complications of procedures, not elsewhere classified, initial encounter; G47.33 - Obstructive sleep apnea (adult) (pediatric); G47.37 - Central sleep apnea in conditions classified elsewhere Status: Acute Assessment and Plan: In the baseline portion of the study, the patient had an overall AHI of 24.2 with desaturation down to 85%. She had a central apnea index of 10.5, which is elevated (normal <5). This is consistent with moderate sleep apnea. The patient was started on CPAP 5 cm H2O and titrated to BPAP 10/4 cm H2O due to central apneas and hypopneas. The patient developed treatment-emergent sleep apnea with increasing PAP settings. I recommend that the patient be prescribed CPAP 6 cm H2 O, size small Resmed AirTouch F20 full face mask, CPAP filters/tubing and heated humidity. This should be used with all episodes of sleep.? Compliance should be reviewed within 31-90 days of starting therapy for usage greater than 4 hours per night greater than 70% of the nights. The patient should be asked about symptoms such as?excessive daytime sleepiness, quality of sleep, decreased nocturia, increased?mental functioning such as memory, mood, and concentration. The patient had an echocardiogram done on 06/26/2024 that showed an EF of 60-65%. If the patient's compliance data shows an elevated residual AHI (>5) on CPAP, the patient would be a candidate for an ASV titration. I recommend that this patient be followed by Sleep Medicine. 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 She is currently being followed by cardiology and she had an echocardiogram done in May 2024. (3) PLMD (periodic limb movement disorder): Code(s): G47.61 - Periodic limb movement disorder Status: Acute Assessment and Plan: The patient had a significant number of limb movements during the study with the majority being periodic in nature. Over 20% of the periodic limb movements caused arousals in the patient's sleep. The patient's sleep history is not overly suggestive of Restless Leg Syndrome. I recommend that the patient have a serum ferritin drawn for evaluation of iron deficiency anemia. If the patient has a serum ferritin less than 75 ng/mL, I recommend starting a daily iron supplement and a Vitamin C supplement for better absorption. If the serum ferritin is greater than 75 ng/mL, I recommend starting a dopamine agonist and titrating the dose until symptoms resolve. There are nonpharmacological methods to treat limb movements including daily exercise, stretching calf muscles before bed, avoiding excessive amounts of caffeine and alcohol, vitamin B supplementation, magnesium lotion massaged into legs before bed, and use of a weighted blanket. Data The data obtained during this sleep study is adequate for interpretation. Certification This sleep study has been reviewed by a board certified sleep medicine physician.
[2025-01-06 11:58] VITALS: BMI 29.7
== END 2024-12-10 07:28 | disposition home or self-care (01) ==
PROVIDERS: PCP Family Medicine; Visit Provider Internal Medicine Cardiovascular Disease
DX: G47.33 Obstructive sleep apnea (adult) (pediatric) (principal); G47.37 Central sleep apnea in conditions classified elsewhere; T81.89XA Other complications of procedures, not elsewhere classified, initial encounter; G47.10 Hypersomnia, unspecified
CPT/HCPCS: 95811

== ENCOUNTER 2024-12-25 10:47 | Outpatient (CLI) | payer MEDICARE, SELFPAY ==
--- NOTE | ~2024-12-25 | DEXA_ITS ---
Bone Density Report Name: KASSY SUAREZ Age: 74 Sex: Female Ethnicity: White Date of : 1950 Indication: osteopenia; monitoring treatment; height loss; prior fracture; hysterectomy; Referring Provider: SIN POST Study: Bone densitometry was performed. Exam Date: December 25, 2024 Accession number: [id number] Bone Density: Region BMD T-score Z-score Classification AP Spine(L1-L4) 0.703 -3.1 -0.7 Osteoporosis Femoral Neck (Left) 0.468 -3.4 -1.3 Osteoporosis Total Hip (Left) 0.669 -2.2 -0.4 Osteopenia Femoral Neck (Right) 0.453 -3.6 -1.4 Osteoporosis Total Hip (Right) 0.594 -2.9 -1.0 Osteoporosis Total Hip Mean 0.631 -2.6 -0.7 Osteoporosis World Health Organization criteria for BMD impression classify patients as: Normal (T-score at or above -1.0), Osteopenia (T-score between -1.0 and -2.5), or Osteoporosis (T-score at or below -2.5). 10-year Fracture Risk: FRAX not reported because: Some T-score for Spine Total or Hip Total or Femoral Neck at or below -2.5 Prior hip or vertebral fracture Treated for osteoporosis Previous Exams: Region Exam Age BMD T-score BMD Change BMD Change Date g/cm2 vs Baseline vs Previous Total Hip(Left) 12/25/2024 74 0.669 -2.2 -0.045 (-6.3%) -0.045 (-6.3%) 06/03/2019 68 0.714 -1.9 Total Hip(Right) 12/25/2024 74 0.594 -2.9 -0.095 (-13.8% -0.095 (-13.8% 06/03/2019 68 0.689 -2.1 *Denotes significance at 95% confidence level, LSC for Total Hip = 0.027 g/cm2 Clinical Information Provided by Patient: Have had a previous hip or vertebral fracture Has had a low trauma fracture Is being treated for osteoporosis Has used the following medications: Fosamax (i.e. alendronate), Vitamin D Has the following medical conditions: Hysterectomy Patient maximum height was 64.0 Menopause Age: 48 Drinks caffeinated beverages Onset of menses at age 9 Number of children 2 Impression: The patient has established osteoporosis, based on the Right Femoral Neck T-score and the existence of a prior fracture. The patient has risk factors, including: previous fracture. The BMD for the Total Hip(Left) decreased, changing by -6.3% since the last DXA exam. The BMD for the Total Hip(Right) decreased, changing by -13.8% since the last DXA exam. Discussion: SIGNIFICANT BONE LOSS OBSERVED. Adherence to therapy (including calcium and vitamin D intake) should be assessed. If compliance is not a factor, review management and exclusion of secondary causes of bone loss. It is important to ask patients whether they are taking their medications and to encourage continued and appropriate compliance with their osteoporosis therapies to reduce fracture risk. It is also important to review their risk factors and encourage appropriate calcium and vitamin D intakes, exercise, fall prevention and other lifestyle measures. Follow-Up: Consider a repeat BMD and Vertebral Fracture Assessment (VFA) exam in 2 years or sooner if medically necessary, to reassess this patient's status. Reported by: LORAINE on 12/25/2024 11:30:00 AM. Reviewed, dictated and finalized at location A.
--- OUTSIDE RECORDS SUMMARY | 2024-12-25 11:18 | XMS_ITS | Clinical Summary ---
Author Organization [facility] Address [address] [place] [address] Care Team Providers Care Risk Control Analyst Name Role Phone New Referring, Provider Primary [...] this topic Medical Devices Implanted Type Area Educational Interpreter Device Identifier Shelf Expiration Date Model / Serial / Lot Iol [employer] Zcboo - [id number] Implanted:Qty: 1 on 12/05/2018 by aSmuel Rizo MD at [facility] [employer] 01/16/2022 [id number] / [id number] / Insurance [place], [place] [id number] MEDICARE [facility] Care Teams Risk Control Analyst Relationship Specialty Start Date End Date New Referring, Provider PCP - General UNKNOWN PHYSICIAN SPECIALTY 11/30/18
== END 2024-12-25 10:48 | disposition home or self-care (01) ==
LOC: ANHIMG 10:50
PROVIDERS: PCP Family Medicine; Visit Provider Family Medicine
DX: M81.0 Age-related osteoporosis without current pathological fracture (principal); M85.852 Other specified disorders of bone density and structure, left thigh
CPT/HCPCS: 77080

== ENCOUNTER → 2025-03-24 14:53 | Outpatient (CLI) | payer MEDICARE, SELFPAY ==
--- NOTE | ~2025-03-24 | XR_ITS ---
EXAMINATION: XR hand RT min 3V, 03/24/2025 15:01 CDT HISTORY: M79.89 - Other specified soft tissue disorders COMPARISON: No comparisons available. Findings: No acute fracture or malalignment. Moderate degenerative changes of the distal and proximal interphalangeal joints. Severe degenerative changes of the first metacarpal carpal joint, no erosions identified. Soft tissues unremarkable. Impression: No acute fracture or malalignment. Reviewed, dictated and finalized at location P. Impression: No acute fracture or malalignment.
== END ==
LOC: EXPCRAD 14:57
PROVIDERS: PCP Family Medicine; Visit Provider Family Medicine
DX: M79.89 Other specified soft tissue disorders (principal); R23.8 Other skin changes
CPT/HCPCS: 73130

== ENCOUNTER 2025-03-28 18:23 | Emergency (ER) | payer MEDICARE, SELFPAY ==
[2025-03-28 18:34] VITALS: BP 145/102; PULSE 88; RESP 16; TEMP 37.1; O2SAT 97
--- NOTE | 2025-03-28 20:09 | ED.EXTPRO ---
HPI - Extremity Problem General Chief complaint: Extremity Problem,Nontraumatic Stated complaint: right thumb infection Time Seen by Provider: 03/28/25 20:07 Source: patient Mode of arrival: ambulatory Limitations: no limitations History of Present Illness HPI Narrative: 74 YEARS OLD WHITE FEMALE WAS DIAGNOSED OF RIGHT THUMP INFECTION 5 DAYS AGO, STARTED ON BACTRIM. TODAY NOTICED THAT THE SKIN INFECTION LEAKING CLEAR DISCHARGE AND MAY BE LOOKS WORSE THAN BEFORE. PATIENT IS NOT DIABETIC, DENIES ANY FEVER, CHILLS, NAUSEA, OR VOMITING. Related Data Home Medications ?Medication ?Instructions ?Recorded ?Confirmed ?Last Taken ?Type cetirizine 10 mg tablet (Zyrtec) 5 mg PO QAM PRN Allergy Symptoms 05/14/19 03/24/25 01/18/22 History multivitamin 1 tablet PO DAILY 05/14/19 03/24/25 01/18/22 History ascorbic acid (vitamin C) 500 mg 500 mg PO QAM 09/28/21 03/24/25 01/18/22 History capsule cholecalciferol (vitamin D3) 125 125 mcg PO QAM 09/28/21 03/24/25 01/18/22 History mcg (5,000 unit) capsule acetaminophen 325 mg capsule 325 mg PO ONCE 06/28/23 03/24/25 Unknown History (Tylenol) mecobalamin (vitamin B12) 1,000 1,000 mcg PO DAILY 10/09/23 03/24/25 Unknown History mcg lozenges ferrous sulfate 325 mg (65 mg 325 mg PO DAILY 07/10/24 03/24/25 Unknown History iron) tablet (Feosol) diclofenac sodium 75 mg 75 mg PO BID PRN 08/26/24 03/24/25 Unknown History tablet,delayed release Allergies Allergy/AdvReac Type Severity Reaction Status Date / Time Penicillins Allergy Unknown red knot Verified 03/28/25 18:39 at injection site Review of Systems Review of Systems: All systems reviewed & are unremarkable except as noted in HPI and below PMFSH Past Medical History Medical History Mild aortic valve sclerosis Supraventricular tachycardia Iron deficiency anemia Subclinical hypothyroidism Adrenal adenoma 3.0 cm low-attenuation right adrenal adenoma noted on CTA in 06/2024 History of DVT (deep vein thrombosis) GERD (gastroesophageal reflux disease) Torn rotator cuff Right Anxiety Vertigo Fibromyalgia Seasonal allergies Surgical History Surgical History History of Rajeev fundoplication repair paraesophageal hiatal hernia with intrathoracic stomach and Rajeev fundoplication 10/07/2021 History of cataract surgery History of back surgery (2018) Cement put in back. 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 Alcohol intake: current Drinks per week: 1 Alcohol use details: seldom drink Substance use: never Substance use type: does not use Do You Feel Safe in your Home?: Yes Lack of Transportation: No Lack of Food: Never True Current Housing: I Have Housing Concerned About Future Housing: No Difficulty Paying Gas/Electric Bills: No Difficulty Paying for Meds: No Currently Unemployed: No Education: Trade/Vocational Certificate Difficulty w/ Childcare or Family Care: No Living arrangements: with family Additional living arrangements comments: Occupation/Education: retired Additional occupation/education comments: Clerical/office Spiritual care concerns: No Exam Narrative: GENERAL APPEARANCE: WELL-DEVELOPED, WELL-NOURISHED SKIN: NORMAL COLOR VASCULAR: NORMAL PERIPHERAL PULSES, NORMAL CAPILLARY REFILL. MUSCULOSKELETAL: RIGHT THUMB SHOWING A SORE, LEAKING CLEAR DISCHARGE 5 X 5 MM, NOT SURROUNDED BY ERYTHEMA, TENDER TO TOUCH AT THE MIDDLE OF THE INNER SIDE OF THE RIGHT THUMP NEUROLOGIC: ALERT AND ORIENTED ?3, DETAIL TECHNICIAN IS NORMAL TESTED, NO GROSS MOTOR DEFICIT Course Vital Signs Vital signs: Vital Signs Temperature 37.1 C 03/28/25 18:34 Pulse Rate 88 03/28/25 18:34 Respiratory Rate 16 03/28/25 18:34 Blood Pressure 145/102 H 03/28/25 18:34 Pulse Oximetry 97 03/28/25 18:34 Oxygen Delivery Room Air 03/28/25 18:34 Temperature 37.1 C 03/28/25 18:34 Pulse Rate 88 03/28/25 18:34 Respiratory Rate 16 03/28/25 18:34 Blood Pressure 145/102 H 03/28/25 18:34 Pulse Oximetry 97 03/28/25 18:34 Oxygen Delivery Room Air 03/28/25 18:34 MDM - Extremity (Nontraumatic) MDM Narrative Medical decision making narrative: PATIENT PRESENTS WITH A SORE AT THE RIGHT THUMB VITAL SIGNS ARE STABLE DIFFERENTIAL DIAGNOSIS INCLUDE OPEN BLISTER, INFECTED CALLUS, DRAINED BOIL, CYST. PATIENT STARTED ON SULFA 5 DAYS AGO WHICH ACCORDING TO PATIENT EVALUATION IS NOT WORKING. NO INCISION IS REQUIRED AT THIS TIME, DISORDER IS LEAKING CLEAR LIQUID MATERIAL NO SURROUNDING ERYTHEMA, CLEAN, DRESSING, STOP SULFA AND STARTED CLINDAMYCIN, REFERRED PATIENT TO HAND SURGEON FOR FURTHER EVALUATION Differential Diagnosis Differential diagnosis: Likely other ( ABOVE) Critical Care Time Critical Care Time Critical Care Time: No Discharge Plan Discharge Clinical Impression: Finger infection Patient Disposition: Home Condition: Stable Instructions: Antibiotic Form, Wound Infection (DC), Warm Compress or Soak (ED) Additional Instructions: RETURN IF SYMPTOMS ARE WORSENING , CALL YOUR FAMILY PHYSICIAN AND OR DR. Christie FOR APPOINTMENT, TAKE TYLENOL NEEDED FOR ACHES AND PAIN, CONTINUE HOME MEDICATIONS. Patient Language: Mauritian Prescriptions: New clindamycin HCl [Cleocin HCl] 300 mg capsule 300 mg PO Q6H 7 Days Qty: 28 0RF No Action acetaminophen [Tylenol] 325 mg capsule 325 mg PO ONCE diclofenac sodium 75 mg tablet,delayed release (DR/EC) 75 mg PO BID PRN sulfamethoxazole-trimethoprim [Bactrim DS] 800-160 mg tablet 1 tablet PO Q12H 10 Days Qty: 20 0RF multivitamin Tablet 1 tablet PO DAILY cetirizine [Zyrtec] 10 mg tablet 5 mg PO QAM PRN (Reason: Allergy Symptoms) mecobalamin (vitamin B12) 1,000 mcg lozenge 1,000 mcg PO DAILY Rx Instructions: allow to dissolve in mouth OR may chew lightly before swallowing ferrous sulfate [Feosol] 325 mg (65 mg iron) tablet 325 mg PO DAILY cholecalciferol (vitamin D3) 125 mcg (5,000 unit) Capsule 125 mcg PO QAM ascorbic acid (vitamin C) 500 mg Capsule 500 mg PO QAM amiodarone 200 mg tablet 200 mg PO DAILY Qty: 90 2RF duloxetine 60 mg capsule,delayed release(DR/EC) See Rx Instructions .ROUTE .COMPLEX Qty: 90 3RF Dose Instruction: TAKE 1 CAPSULE EVERY DAY Rx Instructions: TAKE 1 CAPSULE EVERY DAY levothyroxine 75 mcg tablet 75 mcg PO DAILY Qty: 30 1RF Follow-up/Referrals: Zander Christie MD [Physician, Plastic Surgery] - 03/31/25 Candi Almaraz DO [Primary Care Provider, Family Practice]
[2025-03-28 20:40] VITALS: BP 152/97; PULSE 57; RESP 16; TEMP 36.6; O2SAT 96
[2025-03-28] MEDS: CLINDAMYCIN HCL 150 MG CAP 450 MG PO (20:43)
--- NOTE | 2025-03-28 20:54 | PC.NURSE ---
wound cleaned with saline, triple abx , gauze and Coban applied
[2025-03-28 20:55] VITALS: BP 137/95; PULSE 61; RESP 16; O2SAT 99
== END 2025-03-28 20:57 | disposition home or self-care (01) ==
PROVIDERS: Emergency Provider Emergency Medicine; PCP Family Medicine
DX: L08.9 Local infection of the skin and subcutaneous tissue, unspecified (principal); I35.8 Other nonrheumatic aortic valve disorders; E03.8 Other specified hypothyroidism; D50.9 Iron deficiency anemia, unspecified; K21.9 Gastro-esophageal reflux disease without esophagitis; M79.7 Fibromyalgia; F41.9 Anxiety disorder, unspecified; Z86.718 Personal history of other venous thrombosis and embolism; Z87.891 Personal history of nicotine dependence; Z98.49 Cataract extraction status, unspecified eye; Z90.711 Acquired absence of uterus with remaining cervical stump; Z90.721 Acquired absence of ovaries, unilateral; Z79.899 Other long term (current) drug therapy
CPT/HCPCS: 99283

== ENCOUNTER 2025-04-08 04:14 | Emergency (ER) | payer MEDICARE, SELFPAY ==
[2025-04-08 04:20] VITALS: BP 128/89; PULSE 84; RESP 16; TEMP 36.6; O2SAT 100
[2025-04-08] MEDS: LORATADINE 10 MG TABLET PO (04:28)
[2025-04-08 04:30] VITALS: BP 144/73; PULSE 63; RESP 14; O2SAT 98
--- NOTE | 2025-04-08 04:33 | ED.ALLEREA ---
HPI - Allergic Reaction General Chief complaint: Skin/Abscess/Foreign Body Stated complaint: BEE STING TO L 5TH TOE Time Seen by Provider: 04/08/25 04:19 Related Data Home Medications ?Medication ?Instructions ?Recorded ?Confirmed ?Last Taken ?Type cetirizine 10 mg tablet (Zyrtec) 5 mg PO QAM PRN Allergy Symptoms 05/14/19 03/24/25 01/18/22 History multivitamin 1 tablet PO DAILY 05/14/19 03/24/25 01/18/22 History ascorbic acid (vitamin C) 500 mg 500 mg PO QAM 09/28/21 03/24/25 01/18/22 History capsule cholecalciferol (vitamin D3) 125 125 mcg PO QAM 09/28/21 03/24/25 01/18/22 History mcg (5,000 unit) capsule acetaminophen 325 mg capsule 325 mg PO ONCE 06/28/23 03/24/25 Unknown History (Tylenol) mecobalamin (vitamin B12) 1,000 1,000 mcg PO DAILY 10/09/23 03/24/25 Unknown History mcg lozenges ferrous sulfate 325 mg (65 mg 325 mg PO DAILY 07/10/24 03/24/25 Unknown History iron) tablet (Feosol) diclofenac sodium 75 mg 75 mg PO BID PRN 08/26/24 03/24/25 Unknown History tablet,delayed release Allergies Allergy/AdvReac Type Severity Reaction Status Date / Time Penicillins Allergy Unknown red knot Verified 04/08/25 04:15 at injection site bee venom protein (honey bee) Allergy Redness of Verified 04/08/25 04:15 Skin PMFSH Past Medical History Medical History Mild aortic valve sclerosis Supraventricular tachycardia Iron deficiency anemia Subclinical hypothyroidism Adrenal adenoma 3.0 cm low-attenuation right adrenal adenoma noted on CTA in 06/2024 History of DVT (deep vein thrombosis) GERD (gastroesophageal reflux disease) Torn rotator cuff Right Anxiety Vertigo Fibromyalgia Seasonal allergies Surgical History Surgical History History of Rajeev fundoplication repair paraesophageal hiatal hernia with intrathoracic stomach and Rajeev fundoplication 10/07/2021 History of cataract surgery History of back surgery (2018) Cement put in back. 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 Alcohol intake: current Drinks per week: 1 Alcohol use details: seldom drink Substance use: never Substance use type: does not use Do You Feel Safe in your Home?: Yes Lack of Transportation: No Lack of Food: Never True Current Housing: I Have Housing Concerned About Future Housing: No Difficulty Paying Gas/Electric Bills: No Difficulty Paying for Meds: No Currently Unemployed: No Education: Trade/Vocational Certificate Difficulty w/ Childcare or Family Care: No Living arrangements: with family Additional living arrangements comments: Occupation/Education: retired Additional occupation/education comments: Clerical/office Spiritual care concerns: No Course Vital Signs Vital signs: Vital Signs Temperature 97.8 F 04/08/25 04:20 Pulse Rate 84 04/08/25 04:20 Respiratory Rate 16 04/08/25 04:20 Blood Pressure 128/89 04/08/25 04:20 Pulse Oximetry 100 04/08/25 04:20 Oxygen Delivery Room Air 04/08/25 04:20 Temperature 97.8 F 04/08/25 04:20 Pulse Rate 61 04/08/25 05:48 Respiratory Rate 14 04/08/25 05:48 Blood Pressure 157/77 H 04/08/25 05:48 Pulse Oximetry 100 04/08/25 05:48 Oxygen Delivery Room Air 04/08/25 04:20 MDM - Allergic Reaction MDM Narrative Medical decision making narrative: 74-year-old female Presenting for bee sting and concern for allergic reaction. On initial evaluation patient was in no acute distress afebrile, hemodynamic stable. Differentials include but are not limited to: Anaphylaxis allergic reaction, insect sting Notable exam findings: Small amount of erythema over the left 5th toe. Heart and lungs clear. Patient was given 10 mg loratadine and monitored. She had improvement of her shortness of breath. She never had any wheezing. No concerns for anaphylaxis at this time. Patient was deemed appropriate for discharge at this time. Patient was advised to take her Zyrtec at home for the next week. Patient was advised follow-up with their PCP in the next week for re-evaluation. Patient was agreeable to this plan. Given strict return precautions. Medical Records Attestation: I reviewed the patient's medical records. Discharge Plan Discharge Clinical Impression: Accidental bee sting Patient Disposition: Home Condition: Stable Instructions: Antibiotic Form, Insect Bite or Sting (ED) Additional Instructions: Continue to take Zyrtec or Claritin daily for the next week. Follow up with her PCP the next week for re-evaluation. Return to the ED for any new or worsening symptoms. Patient Language: [place] Prescriptions: No Action acetaminophen [Tylenol] 325 mg capsule 325 mg PO ONCE diclofenac sodium 75 mg tablet,delayed release (DR/EC) 75 mg PO BID PRN multivitamin Tablet 1 tablet PO DAILY cetirizine [Zyrtec] 10 mg tablet 5 mg PO QAM PRN (Reason: Allergy Symptoms) mecobalamin (vitamin B12) 1,000 mcg lozenge 1,000 mcg PO DAILY Rx Instructions: allow to dissolve in mouth OR may chew lightly before swallowing ferrous sulfate [Feosol] 325 mg (65 mg iron) tablet 325 mg PO DAILY cholecalciferol (vitamin D3) 125 mcg (5,000 unit) Capsule 125 mcg PO QAM ascorbic acid (vitamin C) 500 mg Capsule 500 mg PO QAM clindamycin HCl [Cleocin HCl] 300 mg capsule 300 mg PO Q6H 7 Days Qty: 28 0RF amiodarone 200 mg tablet 200 mg PO DAILY Qty: 90 2RF duloxetine 60 mg capsule,delayed release(DR/EC) See Rx Instructions .ROUTE .COMPLEX Qty: 90 3RF Dose Instruction: TAKE 1 CAPSULE EVERY DAY Rx Instructions: TAKE 1 CAPSULE EVERY DAY levothyroxine 75 mcg tablet 75 mcg PO DAILY Qty: 30 1RF Follow-up/Referrals: Candi Almaraz DO [Primary Care Provider, Family Practice]
[2025-04-08 05:48] VITALS: BP 157/77; PULSE 61; RESP 14; O2SAT 100
== END 2025-04-08 05:51 | disposition home or self-care (01) ==
PROVIDERS: Emergency Provider Student in an Organized Health Care Education/Training Program; PCP Family Medicine
DX: T63.441A Toxic effect of venom of bees, accidental (unintentional), initial encounter (principal); I35.8 Other nonrheumatic aortic valve disorders; E03.8 Other specified hypothyroidism; D50.9 Iron deficiency anemia, unspecified; D35.01 Benign neoplasm of right adrenal gland; K21.9 Gastro-esophageal reflux disease without esophagitis; M79.7 Fibromyalgia; Z86.718 Personal history of other venous thrombosis and embolism; Z87.891 Personal history of nicotine dependence; Z98.49 Cataract extraction status, unspecified eye; Z90.711 Acquired absence of uterus with remaining cervical stump; Z90.721 Acquired absence of ovaries, unilateral; Z79.899 Other long term (current) drug therapy
CPT/HCPCS: 99283; A9270

== ENCOUNTER 2025-05-08 08:07 | Outpatient (CLI) | payer MEDICARE, SELFPAY ==
--- NOTE | ~2025-05-08 | MM_ITS ---
EXAMINATION: MM screening ignacio BI w bindu HISTORY: Screening. TECHNIQUE: Craniocaudal and mediolateral oblique 3-D tomosynthesis images were obtained and synthetic 2-D images were generated. CAD analysis was submitted and interpreted. COMPARISON: 2019 BREAST PARENCHYMAL COMPOSITION: Not Dense: The breasts are almost entirely fatty FINDINGS: No suspicious masses are seen. There are no suspicious calcifications. No unexplained architectural distortion is seen. There are no skin or nipple abnormalities identified. There is no adenopathy seen on the images submitted. IMPRESSION: No mammographic evidence to suggest malignancy is seen. The patient may return to screening mammography as per ACR guidelines. BI-RADS 1 - Negative. Reviewed, dictated and finalized at location [facility]
== END 2025-05-08 08:08 | disposition home or self-care (01) ==
LOC: ANHFOHIMG 08:08
PROVIDERS: PCP Family Medicine; Visit Provider Family Medicine
DX: Z12.31 Encounter for screening mammogram for malignant neoplasm of breast (principal)
CPT/HCPCS: 77063; 77067